=== PATIENT | male | born 1960 | race Caucasian/White ===

== ENCOUNTER 2021-09-08 11:19 | Inpatient (IN) | payer OTHER ==
[~2021-09-08] VITALS: Ht 185.4 cm; Wt 105.2 kg
--- NOTE | 2021-09-08 11:10 | NUR ---
Wound Care Wound Type/Assessment: This is a 60-year-old gentleman presenting to the wound care center today for care of left great toe diabetic ulceration. Patient reports of history possibly 1 week ago of skin break with marked worsening over the past 3 days now demonstrating swelling, redness, necrosis, fluctuance and odor. Plantar opening of wound does probe to bone. He does report chilled sensation. He is new to his primary care physician and we note blood work from yesterday with a glucose of 277, hemoglobin A1c of 7.8, white count of 12.3 and a GFR of 83. Primary care also placed the patient on Bactrim. Patient has prior history of ulceration but no amputation in the past. Quanta flow is 1.22 with good dorsalis pedis and posterior tibial pulses. Treatment Recommendations/Plan: Direct admit from wound clinic, for left Diabetic foot infection. Education provided: to pt re: possible treatment course and POC. Offloading surface/device: recommend NWB at this time Recommended Referrals/Tests: Dr. Chacon, L foot imaging, ID Discharge Recommendations for dressings: will continue to follow as needed
[2021-09-08 11:50] VITALS: BP 151/87
--- NOTE | 2021-09-08 12:09 | NUR ---
Pt arrived on unit at 1140 by wheelchair via transportation. Pt able to ambulate independently to bed. Pt denies pain. Dr. Bustillos paged for orders. Wound pictured/dressed by wound care, this RN verified with DEMETRA Lee. RHIANNON shelley ordered. Will assume care of pt.
[2021-09-08] MEDS ORDERED: ACETAMINOPHEN 325 MG TABLET. PO PRN (12:30)
[2021-09-08] MEDS ORDERED: PIP/TAZO PER PHARMACY MC PRN (12:30)
[2021-09-08] MEDS ORDERED: CRESTOR40 MG PO (12:40)
[2021-09-08] MEDS ORDERED: LISI10TA16 PO (12:40)
[2021-09-08] MEDS ORDERED: CITA40TA6 PO (12:40)
[2021-09-08] MEDS ORDERED: METF10007 PO (12:40)
[2021-09-08] MEDS ORDERED: CYAN25008 PO (12:40)
[2021-09-08] MEDS ORDERED: GLIP10TA13 PO (12:40)
[2021-09-08] MEDS ORDERED: VANCOMYCIN 2 GM in IV NORMAL SALINE 500ML BAG 500 ML IV ONE (12:45)
[2021-09-08 13:14] LABS: BASO # 0.1 x10^3/uL (0.0-0.2); BASO % 1 % (0-3); EOS # 0.1 x10^3/uL (0.0-0.7); EOS % 1 % (0-3); HEMOGLOBIN 14.8 g/dL (13.0-17.5); LYMPH # 0.9 x10^3/uL (1.0-4.8); LYMPH % 9 % (24-48); MEAN CORPUSCULAR HEMOGLOBIN 34 pg (25-35); MEAN CORPUSCULAR HGB CONC 35 g/dL (31-37); MEAN CORPUSCULAR VOLUME 96 fL (79-100); MONO % 10 % (0-9); NEUT # 7.9 x10^3/uL (1.8-7.7); NEUT % 79 % (31-73); PLATELET COUNT 380 x10^3/uL (140-400); RED BLOOD COUNT 4.37 x10^6/uL (4.30-5.70)
[2021-09-08] MEDS ORDERED: FLU VACC QUAD 21-22 (6MOS+) PF 0.5 ML SYRINGE. VAX IM ONE (13:15)
[2021-09-08] MEDS ORDERED: PIPERACILLIN/TAZOBACTAM 3.375 GM in IV NORMAL SALINE 50ML 50 ML IV ONE (13:15)
[2021-09-08 13:25] LABS: CALCIUM 9.2 mg/dL (8.5-10.1); CREATININE 1.2 mg/dL (0.7-1.3); GFR 61.8; POTASSIUM 4.3 mmol/L (3.5-5.1)
[2021-09-08] MEDS ORDERED: DEXTROSE 50% 25 GM / 50ML DISP.SYRIN. IV PRN (14:45)
[2021-09-08 15:11] VITALS: BP 155/94
[2021-09-08] MEDS: VANCOMYCIN PER PHARMACY MC PRN (15:44)
--- NOTE | 2021-09-08 15:51 | NUR ---
Pharmacy Vancomycin Dosing Note S:Consulted to monitor and dose vancomycin started 09/08/21. O:RANI CONTRERAS is a 60 year old M with Diabetic Foot Ulcer . Height: 6 feet, 1 inches Weight: 105.5 kg [facility] Body Weight: 79.90 Adjusted Body Weight: 90.14 Dosing Weight: Actual Other Antibiotics: Zosyn 3.375gm IVPB q6hrs LABS: Last BUN: 18 Last Creatinine: 1.2 Creatinine Clearance: 83 mL/min Last WBC: 10.0 Last Procalcitonin: Tmax (past 24 hours): 99.9 Microbiology: I/O: Drug Levels: Last level: on at Last dose given 09/08/21 at 1504 Vancomycin Dosing: Loading Dose: 2000 mg x1 Dosing Weight: Actual Target Trough: 10-20 A: Based on weight and est. CrCl: P: 1. Start Vancomycin 2000mg once, followed by Vancomycin 1500 mg IV q12h. 2. Follow up Trough level on 09/10/21 at 0230. 3. Pharmacy will continue to monitor, follow and adjust therapy as needed. Bossman Patrick [facility], 09/08/21 [id number]
--- NOTE | 2021-09-08 16:26 | PDOC1 ---
History and Physical Date of Admission Date of Admission DATE: 09/08/21 TIME: 16:21 History of Present Illness History of Present Illness Mr. Leon just moved here from [place] recently and was establishing care with Jakob Clayton. He has had some toe problem recently, redness, and swelling and was sent to Wound care clinic, first visit today and Dr. Diaz called me for a direct admit for left great toe infection that would be consistent with osteomyellitis, and appears to have infection to the MTP. his eval was that pulses are good and he has no reason to expect vascular compromise. Clayton has slightly elevated sugars, is on metformin and glyburide at home, and his new PCP has already discussed changing to some newer options for better control weight stable, no fever he works in the [employer] at [employer] Past Medical History Cardiovascular: HTN Heme/Onc: No pertinent hx Hepatobiliary: No pertinent hx Psych: Depression Rheumatologic: No pertinent hx Endocrine: Diabetes Past Surgical History Past Surgical History: No pertinent history Social History Smoke: No ALCOHOL: none Drugs: None Current Medications Current Medications Current Medications Vancomycin HCl (Vanco Per Pharmacy) 1 each PRN DAILY PRN MC SEE COMMENTS Last administered on 09/08/21at 15:44; Start 09/08/21 at 12:30 Piperacillin Sod/ Tazobactam Sod (Zosyn Per Pharmacy) 1 each PRN DAILY PRN MC SEE COMMENTS; Start 09/08/21 at 12:30 Acetaminophen (Tylenol) 650 mg PRN Q6HRS PRN PO MILD PAIN / TEMP > 100.3'F; Start 09/08/21 at 12:30 Vancomycin HCl 2 gm/Sodium Chloride 500 ml @ 250 mls/hr 1X ONCE IV Last administered on 09/08/21at 15:04; Start 09/08/21 at 12:45; Stop 09/08/21 at 14:49; Status DC Piperacillin Sod/ Tazobactam Sod 3.375 gm/Sodium Chloride 50 ml @ 100 mls/hr 1X ONCE IV ; Start 09/08/21 at 13:15; Stop 09/08/21 at 13:44; Status Cancel Influenza Virus Vaccine Quadrival (Flulaval Quad Syringe) 0.5 ml ONCE ONCE VAX IM ; Start 09/08/21 at 13:15; Stop 09/08/21 at 13:18; Status DC Piperacillin Sod/ Tazobactam Sod 3.375 gm/Sodium Chloride 50 ml @ 100 mls/hr Q6HRS IV ; Start 09/08/21 at 18:00 Lisinopril (Prinivil) 10 mg DAILY PO ; Start 09/09/21 at 09:00 Citalopram Hydrobromide (CeleXA) 40 mg DAILY PO ; Start 09/09/21 at 09:00 Cyanocobalamin (Vitamin B-12) 2,500 mcg DAILY PO ; Start 09/09/21 at 09:00 Glipizide (Glucotrol) 10 mg BIDBFRMEAL PO ; Start 09/08/21 at 16:30 Atorvastatin Calcium (Lipitor) 80 mg QHS PO ; Start 09/08/21 at 21:00 Insulin Glargine (Lantus Syringe) 10 unit QHS SQ ; Start 09/08/21 at 21:00 Insulin Human Lispro (HumaLOG) 8 units TIDAC SQ ; Start 09/08/21 at 16:30 Insulin Human Lispro (HumaLOG) 0-7 UNITS TIDWMEALS SQ ; Start 09/08/21 at 17:00 Dextrose (Dextrose 50%-Water Syringe) 12.5 gm PRN Q15MIN PRN IV SEE COMMENTS; Start 09/08/21 at 14:45 Docusate Sodium (Colace) 100 mg DAILY PO ; Start 09/09/21 at 09:00 Zolpidem Tartrate (Ambien) 5 mg PRN QHS PRN PO INSOMNIA; Start 09/08/21 at 14:45 Vancomycin HCl 1.5 gm/Sodium Chloride 500 ml @ 250 mls/hr Q12H IV ; Start 09/09/21 at 03:00 Vancomycin HCl (Vancomycin Trough Level) 1 each 1X ONCE MC ; Start 09/10/21 at 02:30; Stop 09/10/21 at 02:31 Active Scripts Active Reported Vitamin B12 (Cyanocobalamin (Vitamin B-12)) 2,500 Mcg Tablet 1 Tab PO DAILY 30 Days Lisinopril 10 Mg Tablet 1 Tab PO DAILY Crestor (Rosuvastatin Calcium) 40 Mg Tablet 0.5 Tab PO DAILY Citalopram Hbr (Citalopram Hydrobromide) 40 Mg Tablet 1 Tab PO DAILY Glipizide 10 Mg Tablet 1 Tab PO BID Metformin Hcl 1,000 Mg Tablet 1,000 Mg PO BIDWMEALS Allergies Allergies: Coded Allergies: Penicillins (Verified Allergy, Mild, Rash, 09/08/21) tolerates amoxicillin ROS General: No: Night Sweats, Malaise, Appetite, Other PSYCHOLOGICAL ROS: No: Anxiety, Behavioral Disorder, Concentration difficultie, Decreased libido, Depression, Disorientation, Hallucinations, Hostility, Irritablity, Memory difficulties, Mood Swings, Obsessive thoughts, Physical abuse, Sexual abuse, Sleep disturbances, Suicidal ideation, Other Eyes: No Blurry vision, No Decreased vision, No Double vision, No Dry eyes, No Excessive tearing, No Eye Pain, No Itchy Eyes, No Loss of vision, No Photophobia, No Scotomata, No Uses contacts, No Uses glasses, No Other HEENT: No: Heacaches, Visual Changes, Hearing change, Nasal congestion, Nasal discharge, Oral lesions, Sinus pain, Sore Throat, Epistaxis, Sneezing, Snoring, Tinnitus, Vertigo, Vocal changes, Other ENDOCRINE: No: Breast Changes, Galactorrhea, Hair Pattern Changes, Hot Flashes, Malaise/lethargy, Mood Swings, Palpitations, Polydipsia/polyuria, Skin Changes, Temperature Intolerance, Unexpected Weight Changes, Other Respiratory: No: Cough, Hemoptysis, Orthopnea, Pleuritic Pain, Shortness of breath, SOB with excertion, Sputum Changes, Stridor, Tachypnea, Wheezing, Other Cardiovascular: No Chest Pain, No Palpitations, No Orthopnea, No Paroxysmal Noc. Dyspnea, No Edema, No Lt Headedness, No Other Gastrointestinal: No Nausea, No Vomiting, No Abdominal Pain, No Diarrhea, No Constipation, No Melena, No Hematochezia, No Other Genitourinary: No Dysuria, No Frequency, No Incontinence, No Hematuria, No Retention, No Discharge, No Urgency, No Pain, No Flank Pain, No Other, No , No , No , No , No , No , No Musculoskeletal: No Gait Disturbance, No Joint Pain, No Joint Stiffness, No Joint Swelling, No Muscle Pain, No Muscular Weakness, No Pain In:, No Swelling In:, No Other Neurological: No Behavorial Changes, No Bowel/Bladder ControlChng, No Confusion, No Dizziness, No Gait Disturbance, No Headaches, No Impaired Coord/balance, No Memory Loss, No Numbness/Tingling, No Seizures, No Speech Problems, No Tremors, No Visual Changes, No Weakness, No Other Skin: Yes Dry Skin, Yes Rash, Yes Skin Lesion Changes (foot); No Eczema, No Hair Changes, No Lumps, No Mole Changes, No Mottling, No Nail Changes, No Pruritus, No Other, No Acne Physical Exam General: Alert, Oriented X3, Cooperative, No acute distress HEENT: Atraumatic, PERRLA Lungs: Clear to auscultation Heart: S1S2, RRR Abdomen: Soft Extremities: No cyanosis, No edema, Normal pulses, Other Skin: Other (left great toe redness, open wound) Neuro: Normal speech Psych/Mental Status: Mental status NL, Mood NL Vitals Vitals Vital Signs Date Time Temp Pulse Resp B/P (MAP) Pulse Ox O2 Delivery O2 Flow Rate FiO2 09/08/21 15:11 99.9 91 20 155/94 (114) 97 Room Air 99.9 Labs Labs Laboratory Tests Test 09/08/21 11:54 09/08/21 13:10 Glucose (Fingerstick) 233 mg/dL (70-99) White Blood Count 10.0 x10^3/uL (4.0-11.0) Red Blood Count 4.37 x10^6/uL (4.30-5.70) Hemoglobin 14.8 g/dL (13.0-17.5) Hematocrit 42.0 % (39.0-53.0) Mean Corpuscular Volume 96 fL (79-100) Mean Corpuscular Hemoglobin 34 pg (25-35) Mean Corpuscular Hemoglobin Concent 35 g/dL (31-37) Red Cell Distribution Width 12.0 % (11.5-14.5) Platelet Count 380 x10^3/uL (140-400) Neutrophils (%) (Auto) 79 % (31-73) Lymphocytes (%) (Auto) 9 % (24-48) Monocytes (%) (Auto) 10 % (0-9) Eosinophils (%) (Auto) 1 % (0-3) Basophils (%) (Auto) 1 % (0-3) Neutrophils # (Auto) 7.9 x10^3/uL (1.8-7.7) Lymphocytes # (Auto) 0.9 x10^3/uL (1.0-4.8) Monocytes # (Auto) 1.0 x10^3/uL (0.0-1.1) Eosinophils # (Auto) 0.1 x10^3/uL (0.0-0.7) Basophils # (Auto) 0.1 x10^3/uL (0.0-0.2) Sodium Level 132 mmol/L (136-145) Potassium Level 4.3 mmol/L (3.5-5.1) Chloride Level 95 mmol/L (98-107) Carbon Dioxide Level 27 mmol/L (21-32) Anion Gap 10 (6-14) Blood Urea Nitrogen 18 mg/dL (8-26) Creatinine 1.2 mg/dL (0.7-1.3) Estimated GFR (Cockcroft-Gault) 61.8 Glucose Level 257 mg/dL (70-99) Calcium Level 9.2 mg/dL (8.5-10.1) Laboratory Tests Test 09/08/21 11:54 09/08/21 13:10 Glucose (Fingerstick) 233 mg/dL (70-99) White Blood Count 10.0 x10^3/uL (4.0-11.0) Red Blood Count 4.37 x10^6/uL (4.30-5.70) Hemoglobin 14.8 g/dL (13.0-17.5) Hematocrit 42.0 % (39.0-53.0) Mean Corpuscular Volume 96 fL (79-100) Mean Corpuscular Hemoglobin 34 pg (25-35) Mean Corpuscular Hemoglobin Concent 35 g/dL (31-37) Red Cell Distribution Width 12.0 % (11.5-14.5) Platelet Count 380 x10^3/uL (140-400) Neutrophils (%) (Auto) 79 % (31-73) Lymphocytes (%) (Auto) 9 % (24-48) Monocytes (%) (Auto) 10 % (0-9) Eosinophils (%) (Auto) 1 % (0-3) Basophils (%) (Auto) 1 % (0-3) Neutrophils # (Auto) 7.9 x10^3/uL (1.8-7.7) Lymphocytes # (Auto) 0.9 x10^3/uL (1.0-4.8) Monocytes # (Auto) 1.0 x10^3/uL (0.0-1.1) Eosinophils # (Auto) 0.1 x10^3/uL (0.0-0.7) Basophils # (Auto) 0.1 x10^3/uL (0.0-0.2) Sodium Level 132 mmol/L (136-145) Potassium Level 4.3 mmol/L (3.5-5.1) Chloride Level 95 mmol/L (98-107) Carbon Dioxide Level 27 mmol/L (21-32) Anion Gap 10 (6-14) Blood Urea Nitrogen 18 mg/dL (8-26) Creatinine 1.2 mg/dL (0.7-1.3) Estimated GFR (Cockcroft-Gault) 61.8 Glucose Level 257 mg/dL (70-99) Calcium Level 9.2 mg/dL (8.5-10.1) VTE Prophylaxis Ordered VTE Prophylaxis Devices: No VTE Pharmacological Prophylaxi: No Assessment/Plan Assessment/Plan left great toe osteomyelitis, in DM2, add insulin for glucose control, check A1c consutl podiatry for I+D or amputation VAnc.zosyn obese, BMI 31 htn depression, celexa Justifications for Admission Other Justification MAKSIM CHESTER MD Sep 08, 2021 16:26
[2021-09-08] MEDS: glipiZIDE 5 MG TABLET PO SCH (16:31)
[2021-09-08] MEDS: INSULIN LISPRO 300 UNITS/3 ML VIAL. SQ SCH ×2 (16:39→16:40)
[2021-09-08] MEDS: PIPERACILLIN/TAZOBACTAM 3.375 GM in IV NORMAL SALINE 50ML 50 ML IV SCH (17:33)
[2021-09-08 19:00] VITALS: BP 124/77
--- NOTE | 2021-09-08 20:09 | PDOC2 ---
CONSULT Date of Consult Date of Consult DATE: 09/08/21 TIME: 20:01 History of Present Illness Reason for Visit: Patient was consulted for an acute left hallux swelling, redness in the setting of type 2 diabetes, peripheral neuropathy and PAD. At bedside, patient denies any inciting events to the left foot but has noticed swelling and redness about a week ago. Earlier this week, it has been draining blood and clear liquid. Also, he had an episode of fever and chills on Monday. Patient relates upwards to 8 out of 10 sharp throbbing pain to the left hallux, worse with pressure and activity. Subsequent PCP evaluation and treatment consisted of oral antibiotics. Subsequent wound care evaluation was concerning for cellulitis and deep tissue infection which prompted hospital admission for IV antibiotics and possible surgical intervention. Upon admission, patient was found without leukocytosis however with low-grade fever and tachycardia. Patient was then placed on IV Vanco and Zosyn. Past Medical History Cardiovascular: HTN Heme/Onc: No pertinent hx Hepatobiliary: No pertinent hx Psych: Depression Rheumatologic: No pertinent hx Endocrine: Diabetes Past Surgical History Past Surgical History: No pertinent history Social History No ALCOHOL: none Drugs: None Current Medications Current Medications Current Medications Vancomycin HCl (Vanco Per Pharmacy) 1 each PRN DAILY PRN MC SEE COMMENTS Last administered on 09/08/21at 15:44; Start 09/08/21 at 12:30 Piperacillin Sod/ Tazobactam Sod (Zosyn Per Pharmacy) 1 each PRN DAILY PRN MC SEE COMMENTS; Start 09/08/21 at 12:30 Acetaminophen (Tylenol) 650 mg PRN Q6HRS PRN PO MILD PAIN / TEMP > 100.3'F; Start 09/08/21 at 12:30 Vancomycin HCl 2 gm/Sodium Chloride 500 ml @ 250 mls/hr 1X ONCE IV Last administered on 09/08/21at 15:04; Start 09/08/21 at 12:45; Stop 09/08/21 at 14:49; Status DC Piperacillin Sod/ Tazobactam Sod 3.375 gm/Sodium Chloride 50 ml @ 100 mls/hr 1X ONCE IV ; Start 09/08/21 at 13:15; Stop 09/08/21 at 13:44; Status Cancel Influenza Virus Vaccine Quadrival (Flulaval Quad Syringe) 0.5 ml ONCE ONCE VAX IM Last administered on 09/08/21at 16:30; Start 09/08/21 at 13:15; Stop 09/08/21 at 13:18; Status DC Piperacillin Sod/ Tazobactam Sod 3.375 gm/Sodium Chloride 50 ml @ 100 mls/hr Q6HRS IV Last administered on 09/08/21at 17:33; Start 09/08/21 at 18:00 Lisinopril (Prinivil) 10 mg DAILY PO ; Start 09/09/21 at 09:00 Citalopram Hydrobromide (CeleXA) 40 mg DAILY PO ; Start 09/09/21 at 09:00 Cyanocobalamin (Vitamin B-12) 2,500 mcg DAILY PO ; Start 09/09/21 at 09:00 Glipizide (Glucotrol) 10 mg BIDBFRMEAL PO Last administered on 09/08/21at 16:31; Start 09/08/21 at 16:30 Atorvastatin Calcium (Lipitor) 80 mg QHS PO ; Start 09/08/21 at 21:00 Insulin Glargine (Lantus Syringe) 10 unit QHS SQ ; Start 09/08/21 at 21:00 Insulin Human Lispro (HumaLOG) 8 units TIDAC SQ Last administered on 09/08/21at 16:39; Start 09/08/21 at 16:30 Insulin Human Lispro (HumaLOG) 0-7 UNITS TIDWMEALS SQ Last administered on 09/08/21at 16:40; Start 09/08/21 at 17:00 Dextrose (Dextrose 50%-Water Syringe) 12.5 gm PRN Q15MIN PRN IV SEE COMMENTS; Start 09/08/21 at 14:45 Docusate Sodium (Colace) 100 mg DAILY PO ; Start 09/09/21 at 09:00 Zolpidem Tartrate (Ambien) 5 mg PRN QHS PRN PO INSOMNIA; Start 09/08/21 at 14:45 Vancomycin HCl 1.5 gm/Sodium Chloride 500 ml @ 250 mls/hr Q12H IV ; Start 09/09/21 at 03:00 Vancomycin HCl (Vancomycin Trough Level) 1 each 1X ONCE MC ; Start 09/10/21 at 02:30; Stop 09/10/21 at 02:31 Active Scripts Active Reported Vitamin B12 (Cyanocobalamin (Vitamin B-12)) 2,500 Mcg Tablet 1 Tab PO DAILY 30 Days Lisinopril 10 Mg Tablet 1 Tab PO DAILY Crestor (Rosuvastatin Calcium) 40 Mg Tablet 0.5 Tab PO DAILY Citalopram Hbr (Citalopram Hydrobromide) 40 Mg Tablet 1 Tab PO DAILY Glipizide 10 Mg Tablet 1 Tab PO BID Metformin Hcl 1,000 Mg Tablet 1,000 Mg PO BIDWMEALS Allergies Allergies: Coded Allergies: Penicillins (Verified Allergy, Mild, Rash, 09/08/21) tolerates amoxicillin ROS Review of System CONSTITUTIONAL: No fever. No chills. No dizziness. No weakness. CARDIOVASCULAR: No chest pain. No palpitations. No lower extremity edema. RESPIRATORY: No shortness of breath, cough, pain with respiration. No hemoptysis. No dyspnea. GASTROINTESTINAL: Normal appetite. No nausea, vomiting, diarrhea. GENITOURINARY: No frequency, urgency, nocturia. No hematuria or dysuria. MUSCULOSKELETAL: No arthralgias or myalgias. INTEGUMENTARY: Refer to HPI NEUROLOGIC: No numbness or tingling of the extremities. No weakness. PSYCHIATRIC: No confusion. ENDOCRINE: No fatigue. No weakness. HEMATOLOGICAL: No bleeding. No petechiae. No bruising. ALLERGIES: No asthma. No urticaria Physical Exam Physical Exam General: Pleasant without apparent distress, AOx3 Left lower extremity focused Dermatology: -Diffused erythematous, edema circumferentially to the left hallux to the level of the MTPJ. There are full-thickness ulcers to the dorsal and plantar aspect of the proximal hallux base, probe deep. Both wounds drain serosanguineous. Questionable fluctuance underneath. There is no proximal streaking passing the MTPJ Vascular: -DP/PT palpable -Foot is warm to touch with CFT less than 3 seconds x 5 -Erythematous blanchable without necrotic, violaceous skin changes Neurology: -Light touch sensation diminished to the level of digits 1 through 5 MSK: -[+] TTP at the distal hallux to the level of MTPJ -Passive MTPJ range of motion was smooth without crepitus or pain -Able to move digits 1 through 5 -Muscle strength 5 out of 5 across ankle joint -Calf is soft and nontender -No TTP to the plantar arch compartment Vitals VITALS Vital Signs Date Time Temp Pulse Resp B/P (MAP) Pulse Ox O2 Delivery O2 Flow Rate FiO2 09/08/21 19:00 97.8 92 18 124/77 (93) 97 Room Air 97.8 Labs Labs Laboratory Tests Test 09/08/21 11:54 09/08/21 13:10 09/08/21 16:32 09/08/21 18:54 Glucose (Fingerstick) 233 mg/dL (70-99) 164 mg/dL (70-99) 133 mg/dL (70-99) White Blood Count 10.0 x10^3/uL (4.0-11.0) Red Blood Count 4.37 x10^6/uL (4.30-5.70) Hemoglobin 14.8 g/dL (13.0-17.5) Hematocrit 42.0 % (39.0-53.0) Mean Corpuscular Volume 96 fL (79-100) Mean Corpuscular Hemoglobin 34 pg (25-35) Mean Corpuscular Hemoglobin Concent 35 g/dL (31-37) Red Cell Distribution Width 12.0 % (11.5-14.5) Platelet Count 380 x10^3/uL (140-400) Neutrophils (%) (Auto) 79 % (31-73) Lymphocytes (%) (Auto) 9 % (24-48) Monocytes (%) (Auto) 10 % (0-9) Eosinophils (%) (Auto) 1 % (0-3) Basophils (%) (Auto) 1 % (0-3) Neutrophils # (Auto) 7.9 x10^3/uL (1.8-7.7) Lymphocytes # (Auto) 0.9 x10^3/uL (1.0-4.8) Monocytes # (Auto) 1.0 x10^3/uL (0.0-1.1) Eosinophils # (Auto) 0.1 x10^3/uL (0.0-0.7) Basophils # (Auto) 0.1 x10^3/uL (0.0-0.2) Sodium Level 132 mmol/L (136-145) Potassium Level 4.3 mmol/L (3.5-5.1) Chloride Level 95 mmol/L (98-107) Carbon Dioxide Level 27 mmol/L (21-32) Anion Gap 10 (6-14) Blood Urea Nitrogen 18 mg/dL (8-26) Creatinine 1.2 mg/dL (0.7-1.3) Estimated GFR (Cockcroft-Gault) 61.8 Glucose Level 257 mg/dL (70-99) Calcium Level 9.2 mg/dL (8.5-10.1) Laboratory Tests Test 09/08/21 11:54 09/08/21 13:10 09/08/21 16:32 09/08/21 18:54 Glucose (Fingerstick) 233 mg/dL (70-99) 164 mg/dL (70-99) 133 mg/dL (70-99) White Blood Count 10.0 x10^3/uL (4.0-11.0) Red Blood Count 4.37 x10^6/uL (4.30-5.70) Hemoglobin 14.8 g/dL (13.0-17.5) Hematocrit 42.0 % (39.0-53.0) Mean Corpuscular Volume 96 fL (79-100) Mean Corpuscular Hemoglobin 34 pg (25-35) Mean Corpuscular Hemoglobin Concent 35 g/dL (31-37) Red Cell Distribution Width 12.0 % (11.5-14.5) Platelet Count 380 x10^3/uL (140-400) Neutrophils (%) (Auto) 79 % (31-73) Lymphocytes (%) (Auto) 9 % (24-48) Monocytes (%) (Auto) 10 % (0-9) Eosinophils (%) (Auto) 1 % (0-3) Basophils (%) (Auto) 1 % (0-3) Neutrophils # (Auto) 7.9 x10^3/uL (1.8-7.7) Lymphocytes # (Auto) 0.9 x10^3/uL (1.0-4.8) Monocytes # (Auto) 1.0 x10^3/uL (0.0-1.1) Eosinophils # (Auto) 0.1 x10^3/uL (0.0-0.7) Basophils # (Auto) 0.1 x10^3/uL (0.0-0.2) Sodium Level 132 mmol/L (136-145) Potassium Level 4.3 mmol/L (3.5-5.1) Chloride Level 95 mmol/L (98-107) Carbon Dioxide Level 27 mmol/L (21-32) Anion Gap 10 (6-14) Blood Urea Nitrogen 18 mg/dL (8-26) Creatinine 1.2 mg/dL (0.7-1.3) Estimated GFR (Cockcroft-Gault) 61.8 Glucose Level 257 mg/dL (70-99) Calcium Level 9.2 mg/dL (8.5-10.1) Assessment/Plan Assessment/Plan Left hallux cellulitis, possible deep tissue abscess, osteomyelitis in the setting of type 2 diabetes, peripheral neuropathy, PAD -Explained clinical findings and to the indication for surgical source control with possible hallux amputation. Given the amount of soft tissue involvement and damage, we may have to remove the distal first metatarsal head for soft tissue closure. This will be a staged procedure with I&D, hallux amputation first followed by delayed wound closure with possible additional first metatarsal head amputation. Patient verbalized understanding. -IV antibiotics: Vanco and Zosyn -Consider ID consult -Minimal heel touchdown weightbearing in a surgical shoe -PT eval and treat -Pending blood culture -Pending x-ray of the foot -The left hallux is dressed with gauze, Betadine paint and tape, keep it clean and dry for now until surgery tomorrow -N.p.o. after midnight in preparation for surgical intervention on 09/09 left hallux I&D and amputation with possible wound VAC application and posterior splint application Informed Consent Discussion: I have discussed the purpose, risks, benefits, and alternatives to the procedure and plan of care including potential side effects and complications, both of wh ich may be severe and require additional surgery and/or procedures to treat this with the patient/guardian(s). We discussed the risks and benefits of alternative treatment options and the likelihood of achieving the desired outcome with surgery. Procedure specific discussion is documented below. The risks, benefits and alternatives of the proposed surgery were discussed with the patient, including the option of further non-operative treatment. The possibility of perioperative complications leading to disability and were explained. Patient understands the risks of surgery include but are not limited to failure of the procedure, delayed or non-healing wound, bleeding, infection, venous thrombus/embolus, nerve, vessel, tendon and bone damage, the compli cations of anesthesia, reaction to sutures or other implanted material, stiffness, chronic pain/swelling, malunion/nonunion, the need for other operations and future revision surgery. No guarantees were given or implied. The patient's questions were answered in depth and patient is willing to proceed. ASHLEY LEDEZMA DPM Sep 08, 2021 20:09
[2021-09-08] MEDS: ATORVASTATIN CALCIUM 40 MG TABLET. PO SCH (21:58)
[2021-09-08] MEDS: INSULIN GLARGINE SYRINGE. SQ SCH (22:06)
[2021-09-08 23:00] VITALS: BP 128/72
[2021-09-09] VITALS (9 sets, daily range): BP systolic 124–157; BP diastolic 70–94
[2021-09-09] MEDS: PIPERACILLIN/TAZOBACTAM 3.375 GM in IV NORMAL SALINE 50ML 50 ML IV SCH ×5 (00:27→23:59)
[2021-09-09 02:14] LABS: HEMOGLOBIN A1C 8.7 % (4.8-5.6)
[2021-09-09] MEDS: VANCOMYCIN 1.5 GM in IV NORMAL SALINE 500ML BAG 500 ML IV SCH ×2 (03:19→14:30)
[2021-09-09] MEDS: INSULIN LISPRO 300 UNITS/3 ML VIAL. SQ SCH ×6 (07:30→17:00)
[2021-09-09] MEDS: glipiZIDE 5 MG TABLET PO SCH ×2 (07:30→16:30)
[2021-09-09] MEDS: CITALOPRAM 20 MG TABLET. PO SCH (08:56)
[2021-09-09] MEDS: DOCUSATE SODIUM 100 MG CAPSULE. PO SCH (08:56)
[2021-09-09] MEDS: CYANOCOBALAMIN (VITAMIN B-12) 1,000 MCG TABLET. PO SCH (08:56)
[2021-09-09] MEDS: LISINOPRIL 10 MG TABLET PO SCH (08:56)
--- NOTE | 2021-09-09 10:20 | NUR ---
SW following. Discussed with RN, pt from home, room air, NPO. Pt having great toe amputation. RN advised no SW needs at this time. SW will continue to follow.
--- NOTE | 2021-09-09 11:44 | PDOC ---
[employer] PROGRESS NOTE Date of Service DOS: DATE: 09/09/21 TIME: 11:41 Chief Complaint Chief Complaint Severe right great toe diabetic infection Diabetes Severe neuropathy Depression Hypertension Hyperlipidemia Insomnia History of Present Illness History of Present Illness 09/09/2021 Patient seen and examined He is scheduled to go to surgery later today (the left greater toe has severe swelling and obvious diabetic foot infection) Discussed with RN Discussed with case management Chart reviewed Vitals/I&O Vitals/I&O: Vital Signs Date Time Temp Pulse Resp B/P (MAP) Pulse Ox O2 Delivery O2 Flow Rate FiO2 09/09/21 08:56 89 124/86 09/09/21 08:00 Room Air 09/09/21 07:00 97.9 18 98 97.9 I & O 09/08/21 09/08/21 09/09/21 15:00 23:00 07:00 Intake Total 240 ml 670 ml 600 ml Output Total 950 ml Balance 240 ml 670 ml -350 ml Physical Exam General: Alert, Oriented X3, Cooperative, No acute distress Heart: Regular rate Lungs: Clear Abdomen: Soft Extremities: Other (The left greater toe has severe infection please see the pictures) Skin: Other (left great toe redness, open wound) Labs Labs: Laboratory Tests Test 09/08/21 11:54 09/08/21 13:10 09/08/21 16:32 09/08/21 18:54 Glucose (Fingerstick) 233 mg/dL (70-99) 164 mg/dL (70-99) 133 mg/dL (70-99) White Blood Count 10.0 x10^3/uL (4.0-11.0) Red Blood Count 4.37 x10^6/uL (4.30-5.70) Hemoglobin 14.8 g/dL (13.0-17.5) Hematocrit 42.0 % (39.0-53.0) Mean Corpuscular Volume 96 fL (79-100) Mean Corpuscular Hemoglobin 34 pg (25-35) Mean Corpuscular Hemoglobin Concent 35 g/dL (31-37) Red Cell Distribution Width 12.0 % (11.5-14.5) Platelet Count 380 x10^3/uL (140-400) Neutrophils (%) (Auto) 79 % (31-73) Lymphocytes (%) (Auto) 9 % (24-48) Monocytes (%) (Auto) 10 % (0-9) Eosinophils (%) (Auto) 1 % (0-3) Basophils (%) (Auto) 1 % (0-3) Neutrophils # (Auto) 7.9 x10^3/uL (1.8-7.7) Lymphocytes # (Auto) 0.9 x10^3/uL (1.0-4.8) Monocytes # (Auto) 1.0 x10^3/uL (0.0-1.1) Eosinophils # (Auto) 0.1 x10^3/uL (0.0-0.7) Basophils # (Auto) 0.1 x10^3/uL (0.0-0.2) Sodium Level 132 mmol/L (136-145) Potassium Level 4.3 mmol/L (3.5-5.1) Chloride Level 95 mmol/L (98-107) Carbon Dioxide Level 27 mmol/L (21-32) Anion Gap 10 (6-14) Blood Urea Nitrogen 18 mg/dL (8-26) Creatinine 1.2 mg/dL (0.7-1.3) Estimated GFR (Cockcroft-Gault) 61.8 Glucose Level 257 mg/dL (70-99) Hemoglobin A1c 8.7 % (4.8-5.6) Calcium Level 9.2 mg/dL (8.5-10.1) Test 09/09/21 07:29 09/09/21 11:18 Glucose (Fingerstick) 224 mg/dL (70-99) 181 mg/dL (70-99) Assessment and Plan Assessmemt and Plan Severe right great toe diabetic infection Diabetes Severe neuropathy Depression Hypertension Hyperlipidemia Insomnia Plan He is going to surgery today for probable toe amputation For now continue antibiotics Wound intermediate meds DVT prophylaxis Trend labs Full code Appreciate subspecialist input Comment Review of Relevant I have reviewed the following items edilberto (where applicable) has been applied. Medications: Current Medications Medications (Trade) Dose Ordered Sig/Jarret Route PRN Reason Start Time Stop Time Status Last Admin Dose Admin Vancomycin HCl (Vanco Per Pharmacy) 1 each PRN DAILY PRN MC SEE COMMENTS 09/08/21 12:30 09/08/21 15:44 Vancomycin HCl 2 gm/Sodium Chloride 500 ml @ 250 mls/hr 1X ONCE IV 09/08/21 12:45 09/08/21 14:49 DC 09/08/21 15:04 Influenza Virus Vaccine Quadrival (Flulaval Quad Syringe) 0.5 ml ONCE ONCE VAX IM 09/08/21 13:15 09/08/21 13:18 DC 09/08/21 16:30 Piperacillin Sod/ Tazobactam Sod 3.375 gm/Sodium Chloride 50 ml @ 100 mls/hr Q6HRS IV 09/08/21 18:00 09/09/21 05:49 Glipizide (Glucotrol) 10 mg BIDBFRMEAL PO 09/08/21 16:30 09/08/21 16:31 Atorvastatin Calcium (Lipitor) 80 mg QHS PO 09/08/21 21:00 09/08/21 21:58 Insulin Glargine (Lantus Syringe) 10 unit QHS SQ 09/08/21 21:00 09/08/21 22:06 Insulin Human Lispro (HumaLOG) 8 units TIDAC SQ 09/08/21 16:30 09/08/21 16:39 Insulin Human Lispro (HumaLOG) 0-7 UNITS TIDWMEALS SQ 09/08/21 17:00 09/09/21 09:26 Vancomycin HCl 1.5 gm/Sodium Chloride 500 ml @ 250 mls/hr Q12H IV 09/09/21 03:00 09/09/21 03:19 Justifications for Admission Other Justification ALVARO PLATA III DO Sep 09, 2021 11:44
--- NOTE | 2021-09-09 12:16 | RAD ---
EXAM: 3 views of the left foot DATE: 09/08/2021 8:37 PM INDICATION: Reason: CONCERN FOR OSTEO, L HALLUX / Spl. Instructions: / History: COMPARISON: No Prior FINDINGS/ IMPRESSION: 1. Marked soft tissue swelling about the left great toe. No definite erosive/destructive change or p eriostitis to suggest osteomyelitis. 2. Chronic deformity fifth toe proximal phalanx likely old/healed fracture. 3. Small apparent erosion in the juxta-articular region right great toe, nonspecific, although chron ic sequelae of gout could have this appearance. 4. Hallux MTP joint DJD. Electronically signed by: Martell Lora MD (09/09/2021 12:13 PM) [id number]
[2021-09-09] MEDS: VANCOMYCIN PER PHARMACY MC PRN (12:48)
[2021-09-09] MEDS ORDERED: VANCOMYCIN 1 GM VIAL. ONE (14:00)
[2021-09-09] MEDS ORDERED: BUPIVACAINE MPF 0.25% 30 ML VIAL. ONE (14:00)
[2021-09-09] MEDS ORDERED: PROPOFOL 10 MG/ML (20ML) VIAL. IV ONE (14:18)
[2021-09-09] MEDS ORDERED: LIDOCAINE 2% PF 5 ML VIAL. ONE (14:18)
[2021-09-09] MEDS ORDERED: ONDANSETRON PF 4 MG/2 ML VIAL. ONE (14:18)
[2021-09-09] MEDS ORDERED: DEXAMETHASONE SOD PHOS 4 MG/ML VIAL ONE (14:18)
[2021-09-09] MEDS: INSULIN LISPRO 100 UNIT/ML 3ML VIAL for OP,RR ONLY. SQ PRN ×2 (15:54→17:09)
[2021-09-09] MEDS ORDERED: fentaNYL PF VIAL 100 MCG/2 ML VIAL ONE (16:09)
[2021-09-09] MEDS ORDERED: SEVOFLURANE 31 TO 60 MINUTES. IH ONE (16:27)
--- NOTE | 2021-09-09 16:57 | PDOC4 ---
OPERATIVE NOTE Date: Date: Sep 09, 2021 Pre-Op Diagnosis: Left hallux cellulitis, deep tissue abscess without any significance of radiographic osteomyelitis in the setting of type 2 diabetes, peripheral neuropathy Post-Op Diagnosis: Same as above Procedure Performed: Left hallux incision and drainage, hallux disarticulation at the MTPJ Surgeon: Ashley Ledezma DPM Anesthesia Type: General Blood Loss: 20 cc Specimans Obtained: Left hallux for permanent, osteomyelitis rule out Findings: Deep abscess pocket to the dorsal and plantar aspect of the distal hallux without violating the MTPJ capsule, tracking along the flexor or extensor tendons. The underlying hallux and the first MTPJ were firm to probe without osteolytic changes. Upon disarticulation at the first MTPJ, there was no proximal tracking or purulence noted. However the dorsal skin flap showed minimal micro thrombocytosis without purulence. To preserve and observe the survivorship of the dorsal flap, the residual erythema was outlined with a marking pen. On the plantar flap, there was no purulence or erythema noted. Complications: None Operative Note: Patient was brought into the operating room and placed on the operating table in a supine position. A timeout was performed to confirm patient's identity, location of surgery and procedure. After induction of general anesthesia, a pneumatic left high ankle tourniquet was placed with pressure set 250 mmHg. The left lower extremity was then scrubbed, prepped and draped in the usual sterile manner. The left lower extremity was elevated for gravity exsanguination and the tourniquet was inflated to 250 mmHg. Then the attention was directed to the left hallux. A modified fishmouth incision was made just distal to the MTPJ. Upon incision to the medial dorsal aspect of the hallux, there was purulence draining from the deep tissue. However upon deep dissection, the purulence and necrotic change were limited to distal to the MTPJ of the capsule. The hallux was disarticulated at the MTPJ level. The hallux was sent for pathology and osteomyelitis rule out. [place] deep tissue culture and sensitivity were collected. Further wound inspection was negative for purulence tracking proximally along the extensor or dorsal tendon. The first intermetatarsal space was preserved. The cartilage at the first metatarsal head was intact without any necrotic changes. Then 3 L of normal saline infused with Betadine was used to irrigate the surgical site copiously. Afterwards, wound site inspection was negative for residual purulence or necrotic changes except for mild microthrombosis at the dorsal skin flap with minimal erythema extending approximately 2 cm proximal to the surgical site. But otherwise, there was no necrotic skin flap changes. Decision was made to observe and preserve the dorsal flap for further survivorship. Post washout deep culture swab was sent for culture, sensitivity for anaerobes and aerobes. The tourniquet was deflated and adequate dorsal and plantar flap perfusion were noted without any pulsating bleeding. 10 cc of quarter percent Marcaine plain was infiltrated to the first ray as a Miramontes block for postoperative anesthesia augmentation. The surgical site was packed with Betadine wet-to-dry gauze secured with ABD, Coban and Yury compression. Lesser digital perfusion 2 through 5 were noted. Patient tolerated procedure anesthesia well with vital signs stable and neurovascular status intact. Patient was then transferred to PACU for continued recovery. Pending left foot 3 view x-ray. ASHLEY LEDEZMA DPM Sep 09, 2021 16:57
[2021-09-09] MEDS ORDERED: PROCHLORPERAZINE 10 MG/2 ML VIAL. IVP PRN (17:00)
[2021-09-09] MEDS ORDERED: MORPHINE SULFATE 2 MG/ML INJ. IVP PRN (17:00)
[2021-09-09] MEDS ORDERED: IV RINGERS,LACTATED 1000ML 1,000 ML IV SCH (17:00)
[2021-09-09] MEDS ORDERED: HYDROmorphone 2 MG/ML VIAL IVP PRN (17:00)
[2021-09-09] MEDS ORDERED: fentaNYL PF VIAL 100 MCG/2 ML VIAL IVP PRN ×2 (17:00)
[2021-09-09] MEDS: ACETAMINOPHEN 325 MG TABLET. PO SCH (18:00)
--- NOTE | 2021-09-09 20:10 | RAD ---
Study: XR FOOT_LEFT 3 VIEWS Indication: Postop. Comparison: 09/08/2021 Findings: Status post great toe phalangeal dictation. Within normal limits appearance of the surrounding soft t issues given proximity to surgery. Intact cortex of the first metacarpal head. No unexpected retained radiopaque foreign body. Impression: Within normal limits postoperative radiographs status post great toe phalangeal amputations. Electronically signed by: UNA HASSAN MD (09/09/2021 8:08 PM) [facility]
[2021-09-09] MEDS: GABAPENTIN 100 MG CAPSULE. PO SCH (20:17)
[2021-09-09] MEDS: ATORVASTATIN CALCIUM 40 MG TABLET. PO SCH (20:17)
[2021-09-09] MEDS: INSULIN GLARGINE SYRINGE. SQ SCH (20:18)
[2021-09-10 03:00] VITALS: BP 129/78
[2021-09-10 03:13] LABS: CALCIUM 8.7 mg/dL (8.5-10.1); CREATININE 1.2 mg/dL (0.7-1.3); GFR 61.8; POTASSIUM 4.2 mmol/L (3.5-5.1)
[2021-09-10 03:19] LABS: VANC TR 12.5 mcg/mL (10.0-20.0)
[2021-09-10] MEDS: VANCOMYCIN 1.5 GM in IV NORMAL SALINE 500ML BAG 500 ML IV SCH ×2 (03:35→14:14)
[2021-09-10] MEDS: VANCOMYCIN PER PHARMACY MC PRN (03:44)
--- NOTE | 2021-09-10 03:45 | NUR ---
Pharmacy Vancomycin Dosing Note S:Consulted to monitor and dose vancomycin started 09/08/21. O:RANI CONTRERAS is a 60 year old M with Diabetic Foot Ulcer . Height: 6 feet, 1 inches Weight: 105.5 kg [place] Body Weight: 79.90 Adjusted Body Weight: 90.14 Dosing Weight: Actual Other Antibiotics: Zosyn 3.375gm IVPB q6hrs LABS: Last BUN: 17 Last Creatinine: 1.2 Creatinine Clearance: 83 mL/min Last WBC: 10.0 Last Procalcitonin: Tmax (past 24 hours): 98.9 Microbiology: 09/10 CX FROM TOE AMP PENDING I/O: 1510/950 Drug Levels: Last Trough level: 12.5 on 09/10/21 at 0235 Last dose given 09/09/21 at 1500 Vancomycin Dosing: Loading Dose: 2000 mg x1 Dosing Weight: Actual Target Trough: 10-20 A: Based on: THERAPEUTIC TROUGH, P: 1. CONTINUE Vancomycin 1500 mg IV q12h 2. Follow up Trough level NEEDED 3. Pharmacy will continue to monitor, follow and adjust therapy as needed. RAJNI XIE [facility], 09/10/21 [id number]
[2021-09-10 04:30] LABS: BASO % 1 % (0-3); EOS # 0.2 x10^3/uL (0.0-0.7); EOS % 3 % (0-3); HEMATOCRIT 41.7 % (39.0-53.0); HEMOGLOBIN 14.4 g/dL (13.0-17.5); LYMPH # 0.9 x10^3/uL (1.0-4.8); LYMPH % 12 % (24-48); MEAN CORPUSCULAR HEMOGLOBIN 33 pg (25-35); MEAN CORPUSCULAR HGB CONC 35 g/dL (31-37); MEAN CORPUSCULAR VOLUME 97 fL (79-100); MONO % 13 % (0-9); NEUT # 5.7 x10^3/uL (1.8-7.7); NEUT % 72 % (31-73); PLATELET COUNT 440 x10^3/uL (140-400); RED BLOOD COUNT 4.31 x10^6/uL (4.30-5.70); RED CELL DISTRIBUTION WIDTH 12.2 % (11.5-14.5); WHITE BLOOD COUNT 7.9 x10^3/uL (4.0-11.0)
[2021-09-10] MEDS: PIPERACILLIN/TAZOBACTAM 3.375 GM in IV NORMAL SALINE 50ML 50 ML IV SCH ×4 (05:33→23:45)
[2021-09-10] MEDS: ACETAMINOPHEN 325 MG TABLET. PO SCH ×5 (05:33→23:46)
[2021-09-10 07:00] VITALS: BP 147/85
[2021-09-10] MEDS: CITALOPRAM 20 MG TABLET. PO SCH (08:54)
[2021-09-10] MEDS: LISINOPRIL 10 MG TABLET PO SCH (08:54)
[2021-09-10] MEDS: DOCUSATE SODIUM 100 MG CAPSULE. PO SCH (08:54)
[2021-09-10] MEDS: GABAPENTIN 100 MG CAPSULE. PO SCH ×3 (08:54→21:40)
[2021-09-10] MEDS: glipiZIDE 5 MG TABLET PO SCH ×2 (08:54→17:18)
[2021-09-10] MEDS: CYANOCOBALAMIN (VITAMIN B-12) 1,000 MCG TABLET. PO SCH (08:55)
[2021-09-10] MEDS: INSULIN LISPRO 300 UNITS/3 ML VIAL. SQ SCH ×6 (08:56→17:00)
--- NOTE | 2021-09-10 10:51 | NUR ---
SW following. Discussed with RN, pt from home, room air, ada diet. Pt had surgery 09/09, wound vac to be placed today - pt is NWB. PT/OT ordered. SW will continue to follow.
[2021-09-10 11:00] VITALS: BP 128/70
[2021-09-10 15:00] VITALS: BP 133/84
--- NOTE | 2021-09-10 16:08 | PDOC ---
PROGRESS NOTES Date of Service: DATE: 09/10/21 TIME: 16:05 Chief Complaint Chief Complaint Severe right great toe diabetic infection Diabetes Severe neuropathy Depression Hypertension Hyperlipidemia Insomnia Plan: Continue IV antibiotics Follow recommendations from physical therapy Wound VAC placement pending Reassess in the a.m. Further recommendations based on the clinical course History of Present Illness History of Present Illness 09/09/2021 Patient seen and examined He is scheduled to go to surgery later today (the left greater toe has severe swelling and obvious diabetic foot infection) Discussed with RN Discussed with case management Chart reviewed 09/10/2021 No acute events reported overnight, case discussed with nursing staff patient in no acute distress complaining of diarrhea. Reassurance has been provided. Wound VAC hopefully will be placed either today or tomorrow discussed results of hemoglobin A1c Vitals Vitals Vital Signs Date Time Temp Pulse Resp B/P (MAP) Pulse Ox O2 Delivery O2 Flow Rate FiO2 09/10/21 15:00 97.9 86 18 133/84 (100) 99 97.9 09/10/21 08:00 Room Air 09/09/21 16:55 6 Physical Exam General: Alert, Oriented X3, Cooperative, No acute distress Heart: Regular rate Lungs: Clear Abdomen: Soft Extremities: Other (The left greater toe has severe infection please see the pictures) Skin: Other (left great toe redness, open wound) Labs LABS Laboratory Tests Test 09/09/21 16:59 09/09/21 17:55 09/09/21 20:25 09/10/21 02:35 Glucose (Fingerstick) 161 mg/dL (70-99) 143 mg/dL (70-99) 211 mg/dL (70-99) White Blood Count 7.9 x10^3/uL (4.0-11.0) Red Blood Count 4.31 x10^6/uL (4.30-5.70) Hemoglobin 14.4 g/dL (13.0-17.5) Hematocrit 41.7 % (39.0-53.0) Mean Corpuscular Volume 97 fL (79-100) Mean Corpuscular Hemoglobin 33 pg (25-35) Mean Corpuscular Hemoglobin Concent 35 g/dL (31-37) Red Cell Distribution Width 12.2 % (11.5-14.5) Platelet Count 440 x10^3/uL (140-400) Neutrophils (%) (Auto) 72 % (31-73) Lymphocytes (%) (Auto) 12 % (24-48) Monocytes (%) (Auto) 13 % (0-9) Eosinophils (%) (Auto) 3 % (0-3) Basophils (%) (Auto) 1 % (0-3) Neutrophils # (Auto) 5.7 x10^3/uL (1.8-7.7) Lymphocytes # (Auto) 0.9 x10^3/uL (1.0-4.8) Monocytes # (Auto) 1.0 x10^3/uL (0.0-1.1) Eosinophils # (Auto) 0.2 x10^3/uL (0.0-0.7) Basophils # (Auto) 0.0 x10^3/uL (0.0-0.2) Sodium Level 135 mmol/L (136-145) Potassium Level 4.2 mmol/L (3.5-5.1) Chloride Level 101 mmol/L (98-107) Carbon Dioxide Level 25 mmol/L (21-32) Anion Gap 9 (6-14) Blood Urea Nitrogen 17 mg/dL (8-26) Creatinine 1.2 mg/dL (0.7-1.3) Estimated GFR (Cockcroft-Gault) 61.8 Glucose Level 183 mg/dL (70-99) Calcium Level 8.7 mg/dL (8.5-10.1) Vancomycin Level Trough 12.5 mcg/mL (10.0-20.0) Vancomycin Last Dose Date Vancomycin Last Dose Time Test 09/10/21 07:29 09/10/21 12:12 Glucose (Fingerstick) 195 mg/dL (70-99) 154 mg/dL (70-99) Comment Review of Relevant I have reviewed the following items edilberto (where applicable) has been applied. Labs Laboratory Tests Test 09/08/21 16:32 09/08/21 18:54 09/09/21 07:29 09/09/21 11:18 Glucose (Fingerstick) 164 mg/dL (70-99) 133 mg/dL (70-99) 224 mg/dL (70-99) 181 mg/dL (70-99) Test 09/09/21 15:41 09/09/21 16:59 09/09/21 17:55 09/09/21 20:25 Glucose (Fingerstick) 165 mg/dL (70-99) 161 mg/dL (70-99) 143 mg/dL (70-99) 211 mg/dL (70-99) Test 09/10/21 02:35 09/10/21 07:29 09/10/21 12:12 White Blood Count 7.9 x10^3/uL (4.0-11.0) Red Blood Count 4.31 x10^6/uL (4.30-5.70) Hemoglobin 14.4 g/dL (13.0-17.5) Hematocrit 41.7 % (39.0-53.0) Mean Corpuscular Volume 97 fL (79-100) Mean Corpuscular Hemoglobin 33 pg (25-35) Mean Corpuscular Hemoglobin Concent 35 g/dL (31-37) Red Cell Distribution Width 12.2 % (11.5-14.5) Platelet Count 440 x10^3/uL (140-400) Neutrophils (%) (Auto) 72 % (31-73) Lymphocytes (%) (Auto) 12 % (24-48) Monocytes (%) (Auto) 13 % (0-9) Eosinophils (%) (Auto) 3 % (0-3) Basophils (%) (Auto) 1 % (0-3) Neutrophils # (Auto) 5.7 x10^3/uL (1.8-7.7) Lymphocytes # (Auto) 0.9 x10^3/uL (1.0-4.8) Monocytes # (Auto) 1.0 x10^3/uL (0.0-1.1) Eosinophils # (Auto) 0.2 x10^3/uL (0.0-0.7) Basophils # (Auto) 0.0 x10^3/uL (0.0-0.2) Sodium Level 135 mmol/L (136-145) Potassium Level 4.2 mmol/L (3.5-5.1) Chloride Level 101 mmol/L (98-107) Carbon Dioxide Level 25 mmol/L (21-32) Anion Gap 9 (6-14) Blood Urea Nitrogen 17 mg/dL (8-26) Creatinine 1.2 mg/dL (0.7-1.3) Estimated GFR (Cockcroft-Gault) 61.8 Glucose Level 183 mg/dL (70-99) Calcium Level 8.7 mg/dL (8.5-10.1) Vancomycin Level Trough 12.5 mcg/mL (10.0-20.0) Vancomycin Last Dose Date Vancomycin Last Dose Time Glucose (Fingerstick) 195 mg/dL (70-99) 154 mg/dL (70-99) Laboratory Tests Test 09/09/21 16:59 09/09/21 17:55 09/09/21 20:25 09/10/21 02:35 Glucose (Fingerstick) 161 mg/dL (70-99) 143 mg/dL (70-99) 211 mg/dL (70-99) White Blood Count 7.9 x10^3/uL (4.0-11.0) Red Blood Count 4.31 x10^6/uL (4.30-5.70) Hemoglobin 14.4 g/dL (13.0-17.5) Hematocrit 41.7 % (39.0-53.0) Mean Corpuscular Volume 97 fL (79-100) Mean Corpuscular Hemoglobin 33 pg (25-35) Mean Corpuscular Hemoglobin Concent 35 g/dL (31-37) Red Cell Distribution Width 12.2 % (11.5-14.5) Platelet Count 440 x10^3/uL (140-400) Neutrophils (%) (Auto) 72 % (31-73) Lymphocytes (%) (Auto) 12 % (24-48) Monocytes (%) (Auto) 13 % (0-9) Eosinophils (%) (Auto) 3 % (0-3) Basophils (%) (Auto) 1 % (0-3) Neutrophils # (Auto) 5.7 x10^3/uL (1.8-7.7) Lymphocytes # (Auto) 0.9 x10^3/uL (1.0-4.8) Monocytes # (Auto) 1.0 x10^3/uL (0.0-1.1) Eosinophils # (Auto) 0.2 x10^3/uL (0.0-0.7) Basophils # (Auto) 0.0 x10^3/uL (0.0-0.2) Sodium Level 135 mmol/L (136-145) Potassium Level 4.2 mmol/L (3.5-5.1) Chloride Level 101 mmol/L (98-107) Carbon Dioxide Level 25 mmol/L (21-32) Anion Gap 9 (6-14) Blood Urea Nitrogen 17 mg/dL (8-26) Creatinine 1.2 mg/dL (0.7-1.3) Estimated GFR (Cockcroft-Gault) 61.8 Glucose Level 183 mg/dL (70-99) Calcium Level 8.7 mg/dL (8.5-10.1) Vancomycin Level Trough 12.5 mcg/mL (10.0-20.0) Vancomycin Last Dose Date Vancomycin Last Dose Time Test 09/10/21 07:29 09/10/21 12:12 Glucose (Fingerstick) 195 mg/dL (70-99) 154 mg/dL (70-99) Microbiology 09/08/21 Blood Culture - Preliminary, Resulted NO GROWTH AFTER 1 DAY Medications Current Medications Vancomycin HCl (Vanco Per Pharmacy) 1 each PRN DAILY PRN MC SEE COMMENTS Last administered on 09/10/21at 03:44; Start 09/08/21 at 12:30 Piperacillin Sod/ Tazobactam Sod (Zosyn Per Pharmacy) 1 each PRN DAILY PRN MC SEE COMMENTS; Start 09/08/21 at 12:30 Acetaminophen (Tylenol) 650 mg PRN Q6HRS PRN PO MILD PAIN / TEMP > 100.3'F; Start 09/08/21 at 12:30; Stop 09/09/21 at 18:00; Status DC Vancomycin HCl 2 gm/Sodium Chloride 500 ml @ 250 mls/hr 1X ONCE IV Last administered on 09/08/21at 15:04; Start 09/08/21 at 12:45; Stop 09/08/21 at 14:49; Status DC Piperacillin Sod/ Tazobactam Sod 3.375 gm/Sodium Chloride 50 ml @ 100 mls/hr 1X ONCE IV ; Start 09/08/21 at 13:15; Stop 09/08/21 at 13:44; Status Cancel Influenza Virus Vaccine Quadrival (Flulaval Quad 1692-9152 Syringe) 0.5 ml ONCE ONCE VAX IM Last administered on 09/08/21at 16:30; Start 09/08/21 at 13:15; Stop 09/08/21 at 13:18; Status DC Piperacillin Sod/ Tazobactam Sod 3.375 gm/Sodium Chloride 50 ml @ 100 mls/hr Q6HRS IV Last administered on 09/10/21at 11:48; Start 09/08/21 at 18:00 Lisinopril (Prinivil) 10 mg DAILY PO Last administered on 09/10/21 08:54; Start 09/09/21 at 09:00 Citalopram Hydrobromide (CeleXA) 40 mg DAILY PO Last administered on 09/10/21 08:54; Start 09/09/21 at 09:00 Cyanocobalamin (Vitamin B-12) 2,500 mcg DAILY PO Last administered on 09/10/21 08:55; Start 09/09/21 at 09:00 Glipizide (Glucotrol) 10 mg BIDBFRMEAL PO Last administered on 09/10/21 08:54; Start 09/08/21 at 16:30 Atorvastatin Calcium (Lipitor) 80 mg QHS PO Last administered on 09/09/21at 20:17; Start 09/08/21 at 21:00 Insulin Glargine (Lantus Syringe) 10 unit QHS SQ Last administered on 09/09/21at 20:18; Start 09/08/21 at 21:00 Insulin Human Lispro (HumaLOG) 8 units TIDAC SQ Last administered on 09/10/21at 12:17; Start 09/08/21 at 16:30 Insulin Human Lispro (HumaLOG) 0-7 UNITS TIDWMEALS SQ Last administered on 09/10/21at 12:18; Start 09/08/21 at 17:00 Dextrose (Dextrose 50%-Water Syringe) 12.5 gm PRN Q15MIN PRN IV SEE COMMENTS; Start 09/08/21 at 14:45 Docusate Sodium (Colace) 100 mg DAILY PO Last administered on 09/10/21 08:54; Start 09/09/21 at 09:00 Zolpidem Tartrate (Ambien) 5 mg PRN QHS PRN PO INSOMNIA; Start 09/08/21 at 14:45 Vancomycin HCl 1.5 gm/Sodium Chloride 500 ml @ 250 mls/hr Q12H IV Last administered on 09/10/21at 14:14; Start 09/09/21 at 03:00 Vancomycin HCl (Vancomycin Trough Level) 1 each 1X ONCE MC Last administered on 09/10/21at 02:30; Start 09/10/21 at 02:30; Stop 09/10/21 at 02:31; Status DC Bupivacaine HCl (Sensorcaine Mpf 0.25%) 30 ml STK-MED ONCE .ROUTE Last administered on 09/09/21at 17:22; Start 09/09/21 at 14:00; Stop 09/09/21 at 14:00; Status DC Vancomycin HCl (Vancomycin) 1 gm STK-MED ONCE .ROUTE ; Start 09/09/21 at 14:00; Stop 09/09/21 at 14:00; Status DC Propofol (Diprivan) 200 mg STK-MED ONCE IV ; Start 09/09/21 at 14:18; Stop 09/09/21 at 14:19; Status DC Lidocaine HCl (Lidocaine Pf 2% Vial) 5 ml STK-MED ONCE .ROUTE ; Start 09/09/21 at 14:18; Stop 09/09/21 at 14:19; Status DC Dexamethasone Sodium Phosphate (Decadron) 4 mg STK-MED ONCE .ROUTE ; Start 09/09/21 at 14:18; Stop 09/09/21 at 14:19; Status DC Ondansetron HCl (Zofran) 4 mg STK-MED ONCE .ROUTE ; Start 09/09/21 at 14:18; Stop 09/09/21 at 14:19; Status DC Insulin Human Lispro (HumaLOG VIAL for OP,RR ONLY) 0-10 units PRN Q1HR PRN SQ PER PROTOCOL Last administered on 09/09/21at 17:09; Start 09/09/21 at 16:00; Stop 09/10/21 at 15:59; Status DC Fentanyl Citrate (Fentanyl 2ml Vial) 100 mcg STK-MED ONCE .ROUTE ; Start 09/09/21 at 16:09; Stop 09/09/21 at 16:09; Status DC Sevoflurane (Ultane) 30 ml STK-MED ONCE IH ; Start 09/09/21 at 16:27; Stop 09/09/21 at 16:28; Status DC Fentanyl Citrate (Fentanyl 2ml Vial) 25 mcg PRN Q5MIN PRN IVP MILD PAIN 1-3; Start 09/09/21 at 17:00; Stop 09/10/21 at 16:59 Fentanyl Citrate (Fentanyl 2ml Vial) 50 mcg PRN Q5MIN PRN IVP MODERATE PAIN 4- 6; Start 09/09/21 at 17:00; Stop 09/10/21 at 16:59 Morphine Sulfate (Morphine Sulfate) 1 mg PRN Q10MIN PRN IVP SEVERE PAIN 7-10; Start 09/09/21 at 17:00; Stop 09/10/21 at 16:59 Ringer's Solution 1,000 ml @ 30 mls/hr Q24H IV Last administered on 09/09/21at 16:00; Start 09/09/21 at 17:00; Stop 09/10/21 at 04:59; Status DC Hydromorphone HCl (Dilaudid) 0.5 mg PRN Q10MIN PRN IVP SEVERE PAIN 7-10, 2nd CHOICE; Start 09/09/21 at 17:00; Stop 09/10/21 at 16:59 Prochlorperazine Edisylate (Compazine) 5 mg PACU PRN PRN IVP NAUSEA, MRX1; Start 09/09/21 at 17:00; Stop 09/10/21 at 16:59 Acetaminophen (Tylenol) 650 mg Q6HRS PO Last administered on 09/10/21at 11:48; Start 09/09/21 at 18:00 Tramadol HCl (Ultram) 50 mg PRN Q6HRS PRN PO MILD-MODERATE PAIN; Start 09/09/21 at 18:00 Acetaminophen/ Hydrocodone Bitart (Lortab 5/325) 1 tab PRN Q6HRS PRN PO SEVERE PAIN; Start 09/09/21 at 18:00 Gabapentin (Neurontin) 100 mg TID PO Last administered on 09/10/21at 14:11; Start 09/09/21 at 21:00 Lactobacillus Rhamnosus (Culturelle) 1 cap BID PO ; Start 09/10/21 at 21:00 Active Scripts Active Reported Vitamin B12 (Cyanocobalamin (Vitamin B-12)) 2,500 Mcg Tablet 1 Tab PO DAILY 30 Days Lisinopril 10 Mg Tablet 1 Tab PO DAILY Crestor (Rosuvastatin Calcium) 40 Mg Tablet 0.5 Tab PO DAILY Citalopram Hbr (Citalopram Hydrobromide) 40 Mg Tablet 1 Tab PO DAILY Glipizide 10 Mg Tablet 1 Tab PO BID Metformin Hcl 1,000 Mg Tablet 1,000 Mg PO BIDWMEALS Vitals/I & O Vital Sign - Last 24 Hours 09/09/21 09/09/21 09/09/21 09/09/21 16:42 16:42 16:55 17:10 Temp 98.1 99 98.1 99.0 Pulse 77 82 86 Resp 16 16 16 B/P (MAP) 121/71 133/77 153/80 Pulse Ox 99 99 99 O2 Delivery Simple Mask Mask Simple Mask Room Air O2 Flow Rate 6 6 6 09/09/21 09/09/21 09/09/21 09/09/21 17:20 17:25 17:40 17:55 Pulse 80 79 83 B/P (MAP) 144/94 (111) 144/90 (108) 140/82 (101) Pulse Ox 96 94 95 O2 Delivery Room Air Room Air 09/09/21 09/09/21 09/09/21 09/10/21 18:10 20:30 23:00 03:00 Temp 98.8 98.9 98.4 98.8 98.9 98.4 Pulse 89 80 89 80 Resp 20 18 18 B/P (MAP) 157/88 (111) 152/90 (110) 144/84 (104) 129/78 (95) Pulse Ox 94 95 98 95 O2 Delivery Room Air Room Air Room Air 09/10/21 09/10/21 09/10/21 09/10/21 07:00 08:00 08:54 11:00 Temp 98.7 97.9 98.7 97.9 Pulse 77 77 91 Resp 18 20 B/P (MAP) 147/85 (105) 147/85 128/70 (89) Pulse Ox 94 98 O2 Delivery Room Air 09/10/21 15:00 Temp 97.9 97.9 Pulse 86 Resp 18 B/P (MAP) 133/84 (100) Pulse Ox 99 Intake and Output 09/09/21 09/09/21 09/10/21 15:00 23:00 07:00 Intake Total 350 ml 360 ml Output Total 20 ml Balance 330 ml 360 ml Justicifation of Admission Dx: Justifications for Admission: Justification of Admission Dx: Yes Sepsis: Failure of Out Pt Tx LEIGHANN SO MD Sep 10, 2021 16:08
--- NOTE | 2021-09-10 17:40 | NUR ---
Wound Care Wound Type/Assessment: 60y/o male, S/P Left Great Toe amputation. Post surgical dressing removed and wound vacuum Veriflow applied. Surgical dressing removed slowly with adequate moisture added from wound wash. No active bleeding noted, no odor and palpable pedal pulse. Wound was thoroughly cleansed, pictured and measured. Periwound has small amount of post surgical edema. Receding erythema noted below line of demarcation. Small amount of macerated tissue circumferential to wound edge. Base of wound has healthy, beefy red granulating tissue. Metarsal head appears healthy. Wound measures 4.0 x 5.0 x 2.0, noted undermining from 12:00 to 12:00 with a maximum depth of 1.0 cm. Wound vac veriflow applied with 2 pieces of black foam. Foam was bridged to left ankle. Excellent seal obtained at -125mmHg. Veriflow setting were 8cc's instilled, 3 minute dwell time, repeat every 5 hours. Installation fluid was normal saline. Treatment Recommendations/Plan: Dr. Chacon is planning on taking patient to the OR on Monday or Monday Education provided: Patient was educated on notifying staff if vac should leak or alarm. Vac is not to be off or alarming for greater that 2 hours. Offloading surface/device: None Recommended Referrals/Tests: None Discharge Recommendations for dressings: Continue wound vac therapy until surgery next week.
[2021-09-10 19:00] VITALS: BP 130/76
[2021-09-10] MEDS ORDERED: LACTOBACILLUS RHAMNOSUS GG 1 CAPSULE. PO SCH (21:00)
[2021-09-10] MEDS: ATORVASTATIN CALCIUM 40 MG TABLET. PO SCH (21:39)
[2021-09-10] MEDS: LACTOBACILLUS RHAMNOSUS GG 1 CAPSULE. PO SCH (21:40)
[2021-09-10] MEDS: INSULIN GLARGINE SYRINGE. SQ SCH (21:41)
[2021-09-10 23:00] VITALS: BP 118/78
[2021-09-11] MEDS: VANCOMYCIN 1.5 GM in IV NORMAL SALINE 500ML BAG 500 ML IV SCH ×2 (02:30→15:45)
[2021-09-11 03:00] VITALS: BP 125/79
[2021-09-11] MEDS: ACETAMINOPHEN 325 MG TABLET. PO SCH ×4 (05:43→23:42)
[2021-09-11] MEDS: PIPERACILLIN/TAZOBACTAM 3.375 GM in IV NORMAL SALINE 50ML 50 ML IV SCH ×4 (05:43→23:42)
[2021-09-11 07:00] VITALS: BP 113/79
[2021-09-11 07:19] LABS: BASO % 1 % (0-3); EOS # 0.2 x10^3/uL (0.0-0.7); EOS % 4 % (0-3); HEMATOCRIT 41.1 % (39.0-53.0); HEMOGLOBIN 14.4 g/dL (13.0-17.5); LYMPH # 1.2 x10^3/uL (1.0-4.8); LYMPH % 20 % (24-48); MEAN CORPUSCULAR HEMOGLOBIN 34 pg (25-35); MEAN CORPUSCULAR HGB CONC 35 g/dL (31-37); MEAN CORPUSCULAR VOLUME 97 fL (79-100); MONO # 0.8 x10^3/uL (0.0-1.1); MONO % 14 % (0-9); NEUT # 3.8 x10^3/uL (1.8-7.7); NEUT % 63 % (31-73); PLATELET COUNT 454 x10^3/uL (140-400); RED BLOOD COUNT 4.23 x10^6/uL (4.30-5.70); RED CELL DISTRIBUTION WIDTH 11.8 % (11.5-14.5)
[2021-09-11] MEDS: glipiZIDE 5 MG TABLET PO SCH ×2 (07:30→17:58)
[2021-09-11 07:55] LABS: GFR 76.2; POTASSIUM 4.4 mmol/L (3.5-5.1)
[2021-09-11] MEDS: DOCUSATE SODIUM 100 MG CAPSULE. PO SCH (09:00)
[2021-09-11] MEDS: GABAPENTIN 100 MG CAPSULE. PO SCH ×3 (09:00→21:55)
[2021-09-11] MEDS: CITALOPRAM 20 MG TABLET. PO SCH (09:00)
[2021-09-11] MEDS: LACTOBACILLUS RHAMNOSUS GG 1 CAPSULE. PO SCH ×2 (09:00→21:55)
[2021-09-11] MEDS: CYANOCOBALAMIN (VITAMIN B-12) 1,000 MCG TABLET. PO SCH (09:00)
[2021-09-11] MEDS: LISINOPRIL 10 MG TABLET PO SCH (09:00)
[2021-09-11] MEDS: INSULIN LISPRO 300 UNITS/3 ML VIAL. SQ SCH ×6 (09:48→18:02)
[2021-09-11] MEDS: VANCOMYCIN PER PHARMACY MC PRN (10:57)
[2021-09-11 11:00] VITALS: BP 132/82
--- NOTE | 2021-09-11 12:07 | PDOC ---
PROGRESS NOTES Date of Service DATE: 09/11/21 TIME: 12:03 Subjective Subjective [DOS 09/09] left hallux MTPJ disarticulation, packed open Patient was seen at bedside. Denies overnight events or constitutional symptoms. The packed dressing was replaced with a wound VAC on 09/10 by the wound care team at bedside. Patient denies any pain to the surgical foot. He has been tolerating the IV Vanco and Zosyn well without any adverse reaction. Objective Objective Vital Signs Date Time Temp Pulse Resp B/P (MAP) Pulse Ox O2 Delivery O2 Flow Rate FiO2 09/11/21 11:00 97.8 77 18 132/82 (99) 99 97.8 09/10/21 08:00 Room Air 09/09/21 16:55 6 Intake and Output 09/11/21 07:00 Intake Total 580 ml Output Total 675 ml Balance -95 ml Intake Oral 580 ml Output Urine Total 675 ml # Voids 3 Physical Exam Physical Exam General: Pleasant without apparent distress, AOx3 Left lower extremity focused Dermatology: -VAC is functioning at 125 mmHg -Dressings kept clean dry and intact without any strikethrough -Per chart review, dressing change from yesterday remarked receding erythema from the dorsal skin flap with adequate skin flap perfusion without necrotic or purulent discharge Vascular: -Foot is warm to touch with CFT less than 3 seconds x 5 Neurology: -Light touch sensation diminished to the level of digits 2 through 5 MSK: -[-] TTP at the surgical site -Able to move digits 2 through 5 -Muscle strength 5 out of 5 across ankle joint -Calf is soft and nontender Plan Plan of Care -Explained intraoperative finding remarked deep tissue abscess pocket to the distal hallux. Due to the extensive soft tissue compromise, the hallux was disarticulated at the MTPJ to stage for healthy skin flap closure. -Current antibiotic: Vancomycin and Zosyn -Deep tissue culture 09/09: Gram-positive cocci -Blood culture 09/08: No growth to date -Trend WBC daily -Keep the dressing clean, dry and intact -We will evaluate patient on Monday -Strict nonweightbearing to left lower extremity -PT eval and treat Dispo: Plan for repeat I&D and possible skin closure on Monday. N.p.o. after midnight on Monday Comment Review of Relevant I have reviewed the following items edilberto (where applicable) has been applied. Labs Laboratory Tests Test 09/09/21 15:41 09/09/21 16:59 09/09/21 17:55 09/09/21 20:25 Glucose (Fingerstick) 165 mg/dL (70-99) 161 mg/dL (70-99) 143 mg/dL (70-99) 211 mg/dL (70-99) Test 09/10/21 02:35 09/10/21 07:29 09/10/21 12:12 09/10/21 16:50 White Blood Count 7.9 x10^3/uL (4.0-11.0) Red Blood Count 4.31 x10^6/uL (4.30-5.70) Hemoglobin 14.4 g/dL (13.0-17.5) Hematocrit 41.7 % (39.0-53.0) Mean Corpuscular Volume 97 fL (79-100) Mean Corpuscular Hemoglobin 33 pg (25-35) Mean Corpuscular Hemoglobin Concent 35 g/dL (31-37) Red Cell Distribution Width 12.2 % (11.5-14.5) Platelet Count 440 x10^3/uL (140-400) Neutrophils (%) (Auto) 72 % (31-73) Lymphocytes (%) (Auto) 12 % (24-48) Monocytes (%) (Auto) 13 % (0-9) Eosinophils (%) (Auto) 3 % (0-3) Basophils (%) (Auto) 1 % (0-3) Neutrophils # (Auto) 5.7 x10^3/uL (1.8-7.7) Lymphocytes # (Auto) 0.9 x10^3/uL (1.0-4.8) Monocytes # (Auto) 1.0 x10^3/uL (0.0-1.1) Eosinophils # (Auto) 0.2 x10^3/uL (0.0-0.7) Basophils # (Auto) 0.0 x10^3/uL (0.0-0.2) Sodium Level 135 mmol/L (136-145) Potassium Level 4.2 mmol/L (3.5-5.1) Chloride Level 101 mmol/L (98-107) Carbon Dioxide Level 25 mmol/L (21-32) Anion Gap 9 (6-14) Blood Urea Nitrogen 17 mg/dL (8-26) Creatinine 1.2 mg/dL (0.7-1.3) Estimated GFR (Cockcroft-Gault) 61.8 Glucose Level 183 mg/dL (70-99) Calcium Level 8.7 mg/dL (8.5-10.1) Vancomycin Level Trough 12.5 mcg/mL (10.0-20.0) Vancomycin Last Dose Date Vancomycin Last Dose Time Glucose (Fingerstick) 195 mg/dL (70-99) 154 mg/dL (70-99) 92 mg/dL (70-99) Test 09/10/21 20:21 09/11/21 06:10 09/11/21 07:37 09/11/21 11:41 Glucose (Fingerstick) 195 mg/dL (70-99) 199 mg/dL (70-99) 149 mg/dL (70-99) White Blood Count 6.0 x10^3/uL (4.0-11.0) Red Blood Count 4.23 x10^6/uL (4.30-5.70) Hemoglobin 14.4 g/dL (13.0-17.5) Hematocrit 41.1 % (39.0-53.0) Mean Corpuscular Volume 97 fL (79-100) Mean Corpuscular Hemoglobin 34 pg (25-35) Mean Corpuscular Hemoglobin Concent 35 g/dL (31-37) Red Cell Distribution Width 11.8 % (11.5-14.5) Platelet Count 454 x10^3/uL (140-400) Neutrophils (%) (Auto) 63 % (31-73) Lymphocytes (%) (Auto) 20 % (24-48) Monocytes (%) (Auto) 14 % (0-9) Eosinophils (%) (Auto) 4 % (0-3) Basophils (%) (Auto) 1 % (0-3) Neutrophils # (Auto) 3.8 x10^3/uL (1.8-7.7) Lymphocytes # (Auto) 1.2 x10^3/uL (1.0-4.8) Monocytes # (Auto) 0.8 x10^3/uL (0.0-1.1) Eosinophils # (Auto) 0.2 x10^3/uL (0.0-0.7) Basophils # (Auto) 0.0 x10^3/uL (0.0-0.2) Sodium Level 140 mmol/L (136-145) Potassium Level 4.4 mmol/L (3.5-5.1) Chloride Level 104 mmol/L (98-107) Carbon Dioxide Level 28 mmol/L (21-32) Anion Gap 8 (6-14) Blood Urea Nitrogen 17 mg/dL (8-26) Creatinine 1.0 mg/dL (0.7-1.3) Estimated GFR (Cockcroft-Gault) 76.2 Glucose Level 196 mg/dL (70-99) Calcium Level 9.0 mg/dL (8.5-10.1) Laboratory Tests Test 09/10/21 12:12 09/10/21 16:50 09/10/21 20:21 09/11/21 06:10 Glucose (Fingerstick) 154 mg/dL (70-99) 92 mg/dL (70-99) 195 mg/dL (70-99) White Blood Count 6.0 x10^3/uL (4.0-11.0) Red Blood Count 4.23 x10^6/uL (4.30-5.70) Hemoglobin 14.4 g/dL (13.0-17.5) Hematocrit 41.1 % (39.0-53.0) Mean Corpuscular Volume 97 fL (79-100) Mean Corpuscular Hemoglobin 34 pg (25-35) Mean Corpuscular Hemoglobin Concent 35 g/dL (31-37) Red Cell Distribution Width 11.8 % (11.5-14.5) Platelet Count 454 x10^3/uL (140-400) Neutrophils (%) (Auto) 63 % (31-73) Lymphocytes (%) (Auto) 20 % (24-48) Monocytes (%) (Auto) 14 % (0-9) Eosinophils (%) (Auto) 4 % (0-3) Basophils (%) (Auto) 1 % (0-3) Neutrophils # (Auto) 3.8 x10^3/uL (1.8-7.7) Lymphocytes # (Auto) 1.2 x10^3/uL (1.0-4.8) Monocytes # (Auto) 0.8 x10^3/uL (0.0-1.1) Eosinophils # (Auto) 0.2 x10^3/uL (0.0-0.7) Basophils # (Auto) 0.0 x10^3/uL (0.0-0.2) Sodium Level 140 mmol/L (136-145) Potassium Level 4.4 mmol/L (3.5-5.1) Chloride Level 104 mmol/L (98-107) Carbon Dioxide Level 28 mmol/L (21-32) Anion Gap 8 (6-14) Blood Urea Nitrogen 17 mg/dL (8-26) Creatinine 1.0 mg/dL (0.7-1.3) Estimated GFR (Cockcroft-Gault) 76.2 Glucose Level 196 mg/dL (70-99) Calcium Level 9.0 mg/dL (8.5-10.1) Test 09/11/21 07:37 09/11/21 11:41 Glucose (Fingerstick) 199 mg/dL (70-99) 149 mg/dL (70-99) Microbiology 09/09/21 Gram Stain - Final, Resulted 09/09/21 Aerobic and Anaerobic Culture - Preliminary, Resulted 09/08/21 Blood Culture - Preliminary, Resulted NO GROWTH AFTER 2 DAYS Medications Current Medications Vancomycin HCl (Vanco Per Pharmacy) 1 each PRN DAILY PRN MC SEE COMMENTS Last administered on 09/11/21at 10:57; Start 09/08/21 at 12:30 Piperacillin Sod/ Tazobactam Sod (Zosyn Per Pharmacy) 1 each PRN DAILY PRN MC SEE COMMENTS; Start 09/08/21 at 12:30 Acetaminophen (Tylenol) 650 mg PRN Q6HRS PRN PO MILD PAIN / TEMP > 100.3'F; Start 09/08/21 at 12:30; Stop 09/09/21 at 18:00; Status DC Vancomycin HCl 2 gm/Sodium Chloride 500 ml @ 250 mls/hr 1X ONCE IV Last administered on 09/08/21at 15:04; Start 09/08/21 at 12:45; Stop 09/08/21 at 14:49; Status DC Piperacillin Sod/ Tazobactam Sod 3.375 gm/Sodium Chloride 50 ml @ 100 mls/hr 1X ONCE IV ; Start 09/08/21 at 13:15; Stop 09/08/21 at 13:44; Status Cancel Influenza Virus Vaccine Quadrival (Flulaval Quad Syringe) 0.5 ml ONCE ONCE VAX IM Last administered on 09/08/21at 16:30; Start 09/08/21 at 13:15; Stop 09/08/21 at 13:18; Status DC Piperacillin Sod/ Tazobactam Sod 3.375 gm/Sodium Chloride 50 ml @ 100 mls/hr Q6HRS IV Last administered on 09/11/21at 05:43; Start 09/08/21 at 18:00 Lisinopril (Prinivil) 10 mg DAILY PO Last administered on 09/11/21at 09:00; Start 09/09/21 at 09:00 Citalopram Hydrobromide (CeleXA) 40 mg DAILY PO Last administered on 09/11/21at 09:00; Start 09/09/21 at 09:00 Cyanocobalamin (Vitamin B-12) 2,500 mcg DAILY PO Last administered on 09/11/21at 09:00; Start 09/09/21 at 09:00 Glipizide (Glucotrol) 10 mg BIDBFRMEAL PO Last administered on 09/11/21at 07:30; Start 09/08/21 at 16:30 Atorvastatin Calcium (Lipitor) 80 mg QHS PO Last administered on 09/10/21at 21:39; Start 09/08/21 at 21:00 Insulin Glargine (Lantus Syringe) 10 unit QHS SQ Last administered on 09/10/21at 21:41; Start 09/08/21 at 21:00 Insulin Human Lispro (HumaLOG) 8 units TIDAC SQ Last administered on 09/11/21at 09:48; Start 09/08/21 at 16:30 Insulin Human Lispro (HumaLOG) 0-7 UNITS TIDWMEALS SQ Last administered on 08/30 01/17at 09:49; Start 09/08/21 at 17:00 Dextrose (Dextrose 50%-Water Syringe) 12.5 gm PRN Q15MIN PRN IV SEE COMMENTS; Start 09/08/21 at 14:45 Docusate Sodium (Colace) 100 mg DAILY PO Last administered on 09/11/21at 09:00; Start 09/09/21 at 09:00 Zolpidem Tartrate (Ambien) 5 mg PRN QHS PRN PO INSOMNIA; Start 09/08/21 at 14:45 Vancomycin HCl 1.5 gm/Sodium Chloride 500 ml @ 250 mls/hr Q12H IV Last administered on 09/11/21at 02:30; Start 09/09/21 at 03:00 Vancomycin HCl (Vancomycin Trough Level) 1 each 1X ONCE MC Last administered on 09/10/21at 02:30; Start 09/10/21 at 02:30; Stop 09/10/21 at 02:31; Status DC Bupivacaine HCl (Sensorcaine Mpf 0.25%) 30 ml STK-MED ONCE .ROUTE Last administered on 09/09/21at 17:22; Start 09/09/21 at 14:00; Stop 09/09/21 at 14:00; Status DC Vancomycin HCl (Vancomycin) 1 gm STK-MED ONCE .ROUTE ; Start 09/09/21 at 14:00; Stop 09/09/21 at 14:00; Status DC Propofol (Diprivan) 200 mg STK-MED ONCE IV ; Start 09/09/21 at 14:18; Stop 09/09/21 at 14:19; Status DC Lidocaine HCl (Lidocaine Pf 2% Vial) 5 ml STK-MED ONCE .ROUTE ; Start 09/09/21 at 14:18; Stop 09/09/21 at 14:19; Status DC Dexamethasone Sodium Phosphate (Decadron) 4 mg STK-MED ONCE .ROUTE ; Start 09/09/21 at 14:18; Stop 09/09/21 at 14:19; Status DC Ondansetron HCl (Zofran) 4 mg STK-MED ONCE .ROUTE ; Start 09/09/21 at 14:18; Stop 09/09/21 at 14:19; Status DC Insulin Human Lispro (HumaLOG VIAL for OP,RR ONLY) 0-10 units PRN Q1HR PRN SQ PER PROTOCOL Last administered on 09/09/21at 17:09; Start 09/09/21 at 16:00; Stop 09/10/21 at 15:59; Status DC Fentanyl Citrate (Fentanyl 2ml Vial) 100 mcg STK-MED ONCE .ROUTE ; Start 09/09/21 at 16:09; Stop 09/09/21 at 16:09; Status DC Sevoflurane (Ultane) 30 ml STK-MED ONCE IH ; Start 09/09/21 at 16:27; Stop 09/09/21 at 16:28; Status DC Fentanyl Citrate (Fentanyl 2ml Vial) 25 mcg PRN Q5MIN PRN IVP MILD PAIN 1-3; Start 09/09/21 at 17:00; Stop 09/10/21 at 16:59; Status DC Fentanyl Citrate (Fentanyl 2ml Vial) 50 mcg PRN Q5MIN PRN IVP MODERATE PAIN 4- 6; Start 09/09/21 at 17:00; Stop 09/10/21 at 16:59; Status DC Morphine Sulfate (Morphine Sulfate) 1 mg PRN Q10MIN PRN IVP SEVERE PAIN 7-10; Start 09/09/21 at 17:00; Stop 09/10/21 at 16:59; Status DC Ringer's Solution 1,000 ml @ 30 mls/hr Q24H IV Last administered on 09/09/21at 16:00; Start 09/09/21 at 17:00; Stop 09/10/21 at 04:59; Status DC Hydromorphone HCl (Dilaudid) 0.5 mg PRN Q10MIN PRN IVP SEVERE PAIN 7-10, 2nd CHOICE; Start 09/09/21 at 17:00; Stop 09/10/21 at 16:59; Status DC Prochlorperazine Edisylate (Compazine) 5 mg PACU PRN PRN IVP NAUSEA, MRX1; Start 09/09/21 at 17:00; Stop 09/10/21 at 16:59; Status DC Acetaminophen (Tylenol) 650 mg Q6HRS PO Last administered on 09/11/21at 05:43; Start 09/09/21 at 18:00 Tramadol HCl (Ultram) 50 mg PRN Q6HRS PRN PO MILD-MODERATE PAIN; Start 09/09/21 at 18:00 Acetaminophen/ Hydrocodone Bitart (Lortab 5/325) 1 tab PRN Q6HRS PRN PO SEVERE PAIN; Start 09/09/21 at 18:00 Gabapentin (Neurontin) 100 mg TID PO Last administered on 09/11/21at 09:00; Start 09/09/21 at 21:00 Lactobacillus Rhamnosus (Culturelle) 1 cap BID PO Last administered on 09/11/21at 09:00; Start 09/10/21 at 21:00 Lactobacillus Rhamnosus (Culturelle) 1 cap BID PO ; Start 09/10/21 at 21:00; Status UNV Active Scripts Active Reported Vitamin B12 (Cyanocobalamin (Vitamin B-12)) 2,500 Mcg Tablet 1 Tab PO DAILY 30 Days Lisinopril 10 Mg Tablet 1 Tab PO DAILY Crestor (Rosuvastatin Calcium) 40 Mg Tablet 0.5 Tab PO DAILY Citalopram Hbr (Citalopram Hydrobromide) 40 Mg Tablet 1 Tab PO DAILY Glipizide 10 Mg Tablet 1 Tab PO BID Metformin Hcl 1,000 Mg Tablet 1,000 Mg PO BIDWMEALS Vitals/I & O Vital Sign - Last 24 Hours 09/10/21 09/10/21 09/10/21 09/11/21 15:00 19:00 23:00 03:00 Temp 97.9 98.3 98.0 98.5 97.9 98.3 98.0 98.5 Pulse 86 84 82 79 Resp 18 18 18 18 B/P (MAP) 133/84 (100) 130/76 (94) 118/78 (91) 125/79 (94) Pulse Ox 99 98 99 98 09/11/21 09/11/21 09/11/21 07:00 09:00 11:00 Temp 97.7 97.8 97.7 97.8 Pulse 74 74 77 Resp 18 18 B/P (MAP) 113/79 (90) 113/79 132/82 (99) Pulse Ox 98 99 Intake and Output 09/10/21 09/10/21 09/11/21 15:00 23:00 07:00 Intake Total 580 ml Output Total 375 ml 300 ml Balance -375 ml 280 ml Justifications for Admission Other Justification ASHLEY LEDEZMA DPMarisel Sep 11, 2021 12:07
[2021-09-11 15:00] VITALS: BP 125/83
--- NOTE | 2021-09-11 15:14 | PDOC ---
PROGRESS NOTES Date of Service: DATE: 09/11/21 TIME: 15:13 Chief Complaint Chief Complaint Severe right great toe diabetic infection Diabetes Severe neuropathy Depression Hypertension Hyperlipidemia Insomnia Plan: Continue IV antibiotics Follow recommendations from physical therapy Wound VAC placement pending Reassess in the a.m. Further recommendations based on the clinical course History of Present Illness History of Present Illness 09/09/2021 Patient seen and examined He is scheduled to go to surgery later today (the left greater toe has severe swelling and obvious diabetic foot infection) Discussed with RN Discussed with case management Chart reviewed 09/10/2021 No acute events reported overnight, case discussed with nursing staff patient in no acute distress complaining of diarrhea. Reassurance has been provided. Wound VAC hopefully will be placed either today or tomorrow discussed results of hemoglobin A1c 09/11/2021 Continues to do well. He is now more open to continue with his insulin regimen in order to control his diabetes. Plans for OR early next week were discussed. Reassurance provided no concerns voiced during my encounter no acute events repo rted overnight Vitals Vitals Vital Signs Date Time Temp Pulse Resp B/P (MAP) Pulse Ox O2 Delivery O2 Flow Rate FiO2 09/11/21 11:00 97.8 77 18 132/82 (99) 99 97.8 09/11/21 08:17 Room Air 6.0 Physical Exam General: Alert, Oriented X3, Cooperative, No acute distress Heart: Regular rate Lungs: Clear Abdomen: Soft Extremities: Other (The left greater toe has severe infection please see the pictures) Skin: Other (left great toe redness, open wound) Labs LABS Laboratory Tests Test 09/10/21 16:50 09/10/21 20:21 09/11/21 06:10 09/11/21 07:37 Glucose (Fingerstick) 92 mg/dL (70-99) 195 mg/dL (70-99) 199 mg/dL (70-99) White Blood Count 6.0 x10^3/uL (4.0-11.0) Red Blood Count 4.23 x10^6/uL (4.30-5.70) Hemoglobin 14.4 g/dL (13.0-17.5) Hematocrit 41.1 % (39.0-53.0) Mean Corpuscular Volume 97 fL (79-100) Mean Corpuscular Hemoglobin 34 pg (25-35) Mean Corpuscular Hemoglobin Concent 35 g/dL (31-37) Red Cell Distribution Width 11.8 % (11.5-14.5) Platelet Count 454 x10^3/uL (140-400) Neutrophils (%) (Auto) 63 % (31-73) Lymphocytes (%) (Auto) 20 % (24-48) Monocytes (%) (Auto) 14 % (0-9) Eosinophils (%) (Auto) 4 % (0-3) Basophils (%) (Auto) 1 % (0-3) Neutrophils # (Auto) 3.8 x10^3/uL (1.8-7.7) Lymphocytes # (Auto) 1.2 x10^3/uL (1.0-4.8) Monocytes # (Auto) 0.8 x10^3/uL (0.0-1.1) Eosinophils # (Auto) 0.2 x10^3/uL (0.0-0.7) Basophils # (Auto) 0.0 x10^3/uL (0.0-0.2) Sodium Level 140 mmol/L (136-145) Potassium Level 4.4 mmol/L (3.5-5.1) Chloride Level 104 mmol/L (98-107) Carbon Dioxide Level 28 mmol/L (21-32) Anion Gap 8 (6-14) Blood Urea Nitrogen 17 mg/dL (8-26) Creatinine 1.0 mg/dL (0.7-1.3) Estimated GFR (Cockcroft-Gault) 76.2 Glucose Level 196 mg/dL (70-99) Calcium Level 9.0 mg/dL (8.5-10.1) Test 09/11/21 11:41 Glucose (Fingerstick) 149 mg/dL (70-99) Comment Review of Relevant I have reviewed the following items edilberto (where applicable) has been applied. Labs Laboratory Tests Test 09/09/21 15:41 09/09/21 16:59 09/09/21 17:55 09/09/21 20:25 Glucose (Fingerstick) 165 mg/dL (70-99) 161 mg/dL (70-99) 143 mg/dL (70-99) 211 mg/dL (70-99) Test 09/10/21 02:35 09/10/21 07:29 09/10/21 12:12 09/10/21 16:50 White Blood Count 7.9 x10^3/uL (4.0-11.0) Red Blood Count 4.31 x10^6/uL (4.30-5.70) Hemoglobin 14.4 g/dL (13.0-17.5) Hematocrit 41.7 % (39.0-53.0) Mean Corpuscular Volume 97 fL (79-100) Mean Corpuscular Hemoglobin 33 pg (25-35) Mean Corpuscular Hemoglobin Concent 35 g/dL (31-37) Red Cell Distribution Width 12.2 % (11.5-14.5) Platelet Count 440 x10^3/uL (140-400) Neutrophils (%) (Auto) 72 % (31-73) Lymphocytes (%) (Auto) 12 % (24-48) Monocytes (%) (Auto) 13 % (0-9) Eosinophils (%) (Auto) 3 % (0-3) Basophils (%) (Auto) 1 % (0-3) Neutrophils # (Auto) 5.7 x10^3/uL (1.8-7.7) Lymphocytes # (Auto) 0.9 x10^3/uL (1.0-4.8) Monocytes # (Auto) 1.0 x10^3/uL (0.0-1.1) Eosinophils # (Auto) 0.2 x10^3/uL (0.0-0.7) Basophils # (Auto) 0.0 x10^3/uL (0.0-0.2) Sodium Level 135 mmol/L (136-145) Potassium Level 4.2 mmol/L (3.5-5.1) Chloride Level 101 mmol/L (98-107) Carbon Dioxide Level 25 mmol/L (21-32) Anion Gap 9 (6-14) Blood Urea Nitrogen 17 mg/dL (8-26) Creatinine 1.2 mg/dL (0.7-1.3) Estimated GFR (Cockcroft-Gault) 61.8 Glucose Level 183 mg/dL (70-99) Calcium Level 8.7 mg/dL (8.5-10.1) Vancomycin Level Trough 12.5 mcg/mL (10.0-20.0) Vancomycin Last Dose Date Vancomycin Last Dose Time Glucose (Fingerstick) 195 mg/dL (70-99) 154 mg/dL (70-99) 92 mg/dL (70-99) Test 09/10/21 20:21 09/11/21 06:10 09/11/21 07:37 09/11/21 11:41 Glucose (Fingerstick) 195 mg/dL (70-99) 199 mg/dL (70-99) 149 mg/dL (70-99) White Blood Count 6.0 x10^3/uL (4.0-11.0) Red Blood Count 4.23 x10^6/uL (4.30-5.70) Hemoglobin 14.4 g/dL (13.0-17.5) Hematocrit 41.1 % (39.0-53.0) Mean Corpuscular Volume 97 fL (79-100) Mean Corpuscular Hemoglobin 34 pg (25-35) Mean Corpuscular Hemoglobin Concent 35 g/dL (31-37) Red Cell Distribution Width 11.8 % (11.5-14.5) Platelet Count 454 x10^3/uL (140-400) Neutrophils (%) (Auto) 63 % (31-73) Lymphocytes (%) (Auto) 20 % (24-48) Monocytes (%) (Auto) 14 % (0-9) Eosinophils (%) (Auto) 4 % (0-3) Basophils (%) (Auto) 1 % (0-3) Neutrophils # (Auto) 3.8 x10^3/uL (1.8-7.7) Lymphocytes # (Auto) 1.2 x10^3/uL (1.0-4.8) Monocytes # (Auto) 0.8 x10^3/uL (0.0-1.1) Eosinophils # (Auto) 0.2 x10^3/uL (0.0-0.7) Basophils # (Auto) 0.0 x10^3/uL (0.0-0.2) Sodium Level 140 mmol/L (136-145) Potassium Level 4.4 mmol/L (3.5-5.1) Chloride Level 104 mmol/L (98-107) Carbon Dioxide Level 28 mmol/L (21-32) Anion Gap 8 (6-14) Blood Urea Nitrogen 17 mg/dL (8-26) Creatinine 1.0 mg/dL (0.7-1.3) Estimated GFR (Cockcroft-Gault) 76.2 Glucose Level 196 mg/dL (70-99) Calcium Level 9.0 mg/dL (8.5-10.1) Laboratory Tests Test 09/10/21 16:50 09/10/21 20:21 09/11/21 06:10 09/11/21 07:37 Glucose (Fingerstick) 92 mg/dL (70-99) 195 mg/dL (70-99) 199 mg/dL (70-99) White Blood Count 6.0 x10^3/uL (4.0-11.0) Red Blood Count 4.23 x10^6/uL (4.30-5.70) Hemoglobin 14.4 g/dL (13.0-17.5) Hematocrit 41.1 % (39.0-53.0) Mean Corpuscular Volume 97 fL (79-100) Mean Corpuscular Hemoglobin 34 pg (25-35) Mean Corpuscular Hemoglobin Concent 35 g/dL (31-37) Red Cell Distribution Width 11.8 % (11.5-14.5) Platelet Count 454 x10^3/uL (140-400) Neutrophils (%) (Auto) 63 % (31-73) Lymphocytes (%) (Auto) 20 % (24-48) Monocytes (%) (Auto) 14 % (0-9) Eosinophils (%) (Auto) 4 % (0-3) Basophils (%) (Auto) 1 % (0-3) Neutrophils # (Auto) 3.8 x10^3/uL (1.8-7.7) Lymphocytes # (Auto) 1.2 x10^3/uL (1.0-4.8) Monocytes # (Auto) 0.8 x10^3/uL (0.0-1.1) Eosinophils # (Auto) 0.2 x10^3/uL (0.0-0.7) Basophils # (Auto) 0.0 x10^3/uL (0.0-0.2) Sodium Level 140 mmol/L (136-145) Potassium Level 4.4 mmol/L (3.5-5.1) Chloride Level 104 mmol/L (98-107) Carbon Dioxide Level 28 mmol/L (21-32) Anion Gap 8 (6-14) Blood Urea Nitrogen 17 mg/dL (8-26) Creatinine 1.0 mg/dL (0.7-1.3) Estimated GFR (Cockcroft-Gault) 76.2 Glucose Level 196 mg/dL (70-99) Calcium Level 9.0 mg/dL (8.5-10.1) Test 09/11/21 11:41 Glucose (Fingerstick) 149 mg/dL (70-99) Microbiology 09/09/21 Gram Stain - Final, Resulted 09/09/21 Aerobic and Anaerobic Culture - Preliminary, Resulted 09/08/21 Blood Culture - Preliminary, Resulted NO GROWTH AFTER 2 DAYS Medications Current Medications Vancomycin HCl (Vanco Per Pharmacy) 1 each PRN DAILY PRN MC SEE COMMENTS Last administered on 09/11/21at 10:57; Start 09/08/21 at 12:30 Piperacillin Sod/ Tazobactam Sod (Zosyn Per Pharmacy) 1 each PRN DAILY PRN MC SEE COMMENTS; Start 09/08/21 at 12:30 Acetaminophen (Tylenol) 650 mg PRN Q6HRS PRN PO MILD PAIN / TEMP > 100.3'F; Start 09/08/21 at 12:30; Stop 09/09/21 at 18:00; Status DC Vancomycin HCl 2 gm/Sodium Chloride 500 ml @ 250 mls/hr 1X ONCE IV Last administered on 09/08/21at 15:04; Start 09/08/21 at 12:45; Stop 09/08/21 at 14:49; Status DC Piperacillin Sod/ Tazobactam Sod 3.375 gm/Sodium Chloride 50 ml @ 100 mls/hr 1X ONCE IV ; Start 09/08/21 at 13:15; Stop 09/08/21 at 13:44; Status Cancel Influenza Virus Vaccine Quadrival (Flulaval Quad [id number] Syringe) 0.5 ml ONCE ONCE VAX IM Last administered on 09/08/21at 16:30; Start 09/08/21 at 13:15; Stop 09/08/21 at 13:18; Status DC Piperacillin Sod/ Tazobactam Sod 3.375 gm/Sodium Chloride 50 ml @ 100 mls/hr Q6HRS IV Last administered on 09/11/21at 13:18; Start 09/08/21 at 18:00 Lisinopril (Prinivil) 10 mg DAILY PO Last administered on 09/11/21 09:00; Start 09/09/21 at 09:00 Citalopram Hydrobromide (CeleXA) 40 mg DAILY PO Last administered on 09/11/21 09:00; Start 09/09/21 at 09:00 Cyanocobalamin (Vitamin B-12) 2,500 mcg DAILY PO Last administered on 09/11/21 09:00; Start 09/09/21 at 09:00 Glipizide (Glucotrol) 10 mg BIDBFRMEAL PO Last administered on 09/11/21 07:30; Start 09/08/21 at 16:30 Atorvastatin Calcium (Lipitor) 80 mg QHS PO Last administered on 09/10/21 21:39; Start 09/08/21 at 21:00 Insulin Glargine (Lantus Syringe) 10 unit QHS SQ Last administered on 09/10/21at 21:41; Start 09/08/21 at 21:00 Insulin Human Lispro (HumaLOG) 8 units TIDAC SQ Last administered on 09/11/21 13:31; Start 09/08/21 at 16:30 Insulin Human Lispro (HumaLOG) 0-7 UNITS TIDWMEALS SQ Last administered on 09/11/21 09:49; Start 09/08/21 at 17:00 Dextrose (Dextrose 50%-Water Syringe) 12.5 gm PRN Q15MIN PRN IV SEE COMMENTS; Start 09/08/21 at 14:45 Docusate Sodium (Colace) 100 mg DAILY PO Last administered on 09/11/21at 09:00; Start 09/09/21 at 09:00 Zolpidem Tartrate (Ambien) 5 mg PRN QHS PRN PO INSOMNIA; Start 09/08/21 at 14:45 Vancomycin HCl 1.5 gm/Sodium Chloride 500 ml @ 250 mls/hr Q12H IV Last administered on 09/11/21 02:30; Start 09/09/21 at 03:00 Vancomycin HCl (Vancomycin Trough Level) 1 each 1X ONCE MC Last administered on 09/10/21 02:30; Start 09/10/21 at 02:30; Stop 09/10/21 at 02:31; Status DC Bupivacaine HCl (Sensorcaine Mpf 0.25%) 30 ml STK-MED ONCE .ROUTE Last administered on 09/09/21at 17:22; Start 09/09/21 at 14:00; Stop 09/09/21 at 14:00; Status DC Vancomycin HCl (Vancomycin) 1 gm STK-MED ONCE .ROUTE ; Start 09/09/21 at 14:00; Stop 09/09/21 at 14:00; Status DC Propofol (Diprivan) 200 mg STK-MED ONCE IV ; Start 09/09/21 at 14:18; Stop 09/09/21 at 14:19; Status DC Lidocaine HCl (Lidocaine Pf 2% Vial) 5 ml STK-MED ONCE .ROUTE ; Start 09/09/21 at 14:18; Stop 09/09/21 at 14:19; Status DC Dexamethasone Sodium Phosphate (Decadron) 4 mg STK-MED ONCE .ROUTE ; Start 09/09/21 at 14:18; Stop 09/09/21 at 14:19; Status DC Ondansetron HCl (Zofran) 4 mg STK-MED ONCE .ROUTE ; Start 09/09/21 at 14:18; Stop 09/09/21 at 14:19; Status DC Insulin Human Lispro (HumaLOG VIAL for OP,RR ONLY) 0-10 units PRN Q1HR PRN SQ PER PROTOCOL Last administered on 09/09/21at 17:09; Start 09/09/21 at 16:00; Stop 09/10/21 at 15:59; Status DC Fentanyl Citrate (Fentanyl 2ml Vial) 100 mcg STK-MED ONCE .ROUTE ; Start at 16:09; Stop 09/09/21 at 16:09; Status DC Sevoflurane (Ultane) 30 ml STK-MED ONCE IH ; Start 09/09/21 at 16:27; Stop 09/09/21 at 16:28; Status DC Fentanyl Citrate (Fentanyl 2ml Vial) 25 mcg PRN Q5MIN PRN IVP MILD PAIN 1-3; Start 09/09/21 at 17:00; Stop 09/10/21 at 16:59; Status DC Fentanyl Citrate (Fentanyl 2ml Vial) 50 mcg PRN Q5MIN PRN IVP MODERATE PAIN 4- 6; Start 09/09/21 at 17:00; Stop 09/10/21 at 16:59; Status DC Morphine Sulfate (Morphine Sulfate) 1 mg PRN Q10MIN PRN IVP SEVERE PAIN 7-10; Start 09/09/21 at 17:00; Stop 09/10/21 at 16:59; Status DC Ringer's Solution 1,000 ml @ 30 mls/hr Q24H IV Last administered on 09/09/21at 16:00; Start 09/09/21 at 17:00; Stop 09/10/21 at 04:59; Status DC Hydromorphone HCl (Dilaudid) 0.5 mg PRN Q10MIN PRN IVP SEVERE PAIN 7-10, 2nd CHOICE; Start 09/09/21 at 17:00; Stop 09/10/21 at 16:59; Status DC Prochlorperazine Edisylate (Compazine) 5 mg PACU PRN PRN IVP NAUSEA, MRX1; Start 09/09/21 at 17:00; Stop 09/10/21 at 16:59; Status DC Acetaminophen (Tylenol) 650 mg Q6HRS PO Last administered on 09/11/21at 13:20; Start 09/09/21 at 18:00 Tramadol HCl (Ultram) 50 mg PRN Q6HRS PRN PO MILD-MODERATE PAIN; Start 09/09/21 at 18:00 Acetaminophen/ Hydrocodone Bitart (Lortab 5/325) 1 tab PRN Q6HRS PRN PO SEVERE PAIN; Start 09/09/21 at 18:00 Gabapentin (Neurontin) 100 mg TID PO Last administered on 09/11/21at 13:19; St art 09/09/21 at 21:00 Lactobacillus Rhamnosus (Culturelle) 1 cap BID PO Last administered on 09/11/21at 09:00; Start 09/10/21 at 21:00 Lactobacillus Rhamnosus (Culturelle) 1 cap BID PO ; Start 09/10/21 at 21:00; Status UNV Active Scripts Active Reported Vitamin B12 (Cyanocobalamin (Vitamin B-12)) 2,500 Mcg Tablet 1 Tab PO DAILY 30 Days Lisinopril 10 Mg Tablet 1 Tab PO DAILY Crestor (Rosuvastatin Calcium) 40 Mg Tablet 0.5 Tab PO DAILY Citalopram Hbr (Citalopram Hydrobromide) 40 Mg Tablet 1 Tab PO DAILY Glipizide 10 Mg Tablet 1 Tab PO BID Metformin Hcl 1,000 Mg Tablet 1,000 Mg PO BIDWMEALS Vitals/I & O Vital Sign - Last 24 Hours 09/10/21 09/10/21 09/11/21 09/11/21 19:00 23:00 03:00 07:00 Temp 98.3 98.0 98.5 97.7 98.3 98.0 98.5 97.7 Pulse 84 82 79 74 Resp 18 18 18 18 B/P (MAP) 130/76 (94) 118/78 (91) 125/79 (94) 113/79 (90) Pulse Ox 98 99 98 98 09/11/21 09/11/21 09/11/21 08:17 09:00 11:00 Temp 97.8 97.8 Pulse 74 77 Resp 18 B/P (MAP) 113/79 132/82 (99) Pulse Ox 99 O2 Delivery Room Air O2 Flow Rate 6.0 Intake and Output 09/10/21 09/10/21 09/11/21 15:00 23:00 07:00 Intake Total 580 ml Output Total 375 ml 300 ml Balance -375 ml 280 ml Justicifation of Admission Dx: Justifications for Admission: Justification of Admission Dx: Yes Sepsis: Failure of Out Pt LEIGHANN Horn MD Sep 11, 2021 15:14
[2021-09-11 19:00] VITALS: BP 126/79
[2021-09-11] MEDS: ATORVASTATIN CALCIUM 40 MG TABLET. PO SCH (21:55)
[2021-09-11 23:00] VITALS: BP 135/71
[2021-09-11] MEDS: INSULIN GLARGINE SYRINGE. SQ SCH (23:12)
[2021-09-12 03:00] VITALS: BP 116/67
[2021-09-12] MEDS: VANCOMYCIN 1.5 GM in IV NORMAL SALINE 500ML BAG 500 ML IV SCH ×2 (03:01→14:37)
[2021-09-12] MEDS: ACETAMINOPHEN 325 MG TABLET. PO SCH ×4 (05:44→22:51)
[2021-09-12] MEDS: PIPERACILLIN/TAZOBACTAM 3.375 GM in IV NORMAL SALINE 50ML 50 ML IV SCH ×3 (05:45→17:43)
[2021-09-12 07:00] VITALS: BP 119/66
[2021-09-12 07:16] LABS: BASO % 1 % (0-3); EOS # 0.2 x10^3/uL (0.0-0.7); EOS % 4 % (0-3); HEMATOCRIT 42.1 % (39.0-53.0); HEMOGLOBIN 14.7 g/dL (13.0-17.5); LYMPH # 1.3 x10^3/uL (1.0-4.8); LYMPH % 21 % (24-48); MEAN CORPUSCULAR HEMOGLOBIN 34 pg (25-35); MEAN CORPUSCULAR HGB CONC 35 g/dL (31-37); MEAN CORPUSCULAR VOLUME 98 fL (79-100); MONO # 0.7 x10^3/uL (0.0-1.1); MONO % 11 % (0-9); NEUT # 4.1 x10^3/uL (1.8-7.7); NEUT % 64 % (31-73); PLATELET COUNT 493 x10^3/uL (140-400); RED BLOOD COUNT 4.32 x10^6/uL (4.30-5.70); WHITE BLOOD COUNT 6.4 x10^3/uL (4.0-11.0)
[2021-09-12 07:50] LABS: GFR 76.2; POTASSIUM 4.4 mmol/L (3.5-5.1)
[2021-09-12] MEDS: CYANOCOBALAMIN (VITAMIN B-12) 1,000 MCG TABLET. PO SCH (08:19)
[2021-09-12] MEDS: glipiZIDE 5 MG TABLET PO SCH (08:20)
[2021-09-12] MEDS: LISINOPRIL 10 MG TABLET PO SCH (08:20)
[2021-09-12] MEDS: CITALOPRAM 20 MG TABLET. PO SCH (08:20)
[2021-09-12] MEDS: LACTOBACILLUS RHAMNOSUS GG 1 CAPSULE. PO SCH ×2 (08:20→22:45)
[2021-09-12] MEDS: GABAPENTIN 100 MG CAPSULE. PO SCH ×3 (08:20→22:45)
[2021-09-12] MEDS: INSULIN LISPRO 300 UNITS/3 ML VIAL. SQ SCH ×6 (08:27→17:51)
[2021-09-12] MEDS: DOCUSATE SODIUM 100 MG CAPSULE. PO SCH (08:28)
[2021-09-12 11:00] VITALS: BP 111/65
[2021-09-12] MEDS: VANCOMYCIN PER PHARMACY MC PRN (11:17)
[2021-09-12] MEDS: INSULIN GLARGINE SYRINGE. SQ SCH (12:47)
[2021-09-12 15:00] VITALS: BP 117/73
--- NOTE | 2021-09-12 16:36 | PDOC ---
PROGRESS NOTES Date of Service: DATE: 09/12/21 TIME: 16:35 Chief Complaint Chief Complaint Severe right great toe diabetic infection Diabetes Severe neuropathy Depression Hypertension Hyperlipidemia Insomnia Plan: Continue IV antibiotics Follow recommendations from physical therapy Wound VAC placement pending Reassess in the a.m. Further recommendations based on the clinical course History of Present Illness History of Present Illness 09/09/2021 Patient seen and examined He is scheduled to go to surgery later today (the left greater toe has severe swelling and obvious diabetic foot infection) Discussed with RN Discussed with case management Chart reviewed 09/10/2021 No acute events reported overnight, case discussed with nursing staff patient in no acute distress complaining of diarrhea. Reassurance has been provided. Wound VAC hopefully will be placed either today or tomorrow discussed results of hemoglobin A1c 09/11/2021 Continues to do well. He is now more open to continue with his insulin regimen in order to control his diabetes. Plans for OR early next week were discussed. Reassurance provided no concerns voiced during my encounter no acute events repo rted overnight 09/12/2021 No acute events reported overnight, case discussed with nursing staff patient in no acute distress no complaints during my visit Vitals Vitals Vital Signs Date Time Temp Pulse Resp B/P (MAP) Pulse Ox O2 Delivery O2 Flow Rate FiO2 09/12/21 08:20 73 116/67 09/12/21 08:00 Room Air 09/12/21 07:00 98.0 18 96 98.0 09/12/21 03:00 6.0 Physical Exam General: Alert, Oriented X3, Cooperative, No acute distress Heart: Regular rate Lungs: Clear Abdomen: Soft Extremities: Other (The left greater toe has severe infection please see the pictures) Skin: Other (left great toe redness, open wound) Labs LABS Laboratory Tests Test 09/11/21 17:10 09/11/21 19:57 09/12/21 06:15 09/12/21 07:43 Glucose (Fingerstick) 242 mg/dL (70-99) 196 mg/dL (70-99) 204 mg/dL (70-99) White Blood Count 6.4 x10^3/uL (4.0-11.0) Red Blood Count 4.32 x10^6/uL (4.30-5.70) Hemoglobin 14.7 g/dL (13.0-17.5) Hematocrit 42.1 % (39.0-53.0) Mean Corpuscular Volume 98 fL (79-100) Mean Corpuscular Hemoglobin 34 pg (25-35) Mean Corpuscular Hemoglobin Concent 35 g/dL (31-37) Red Cell Distribution Width 12.0 % (11.5-14.5) Platelet Count 493 x10^3/uL (140-400) Neutrophils (%) (Auto) 64 % (31-73) Lymphocytes (%) (Auto) 21 % (24-48) Monocytes (%) (Auto) 11 % (0-9) Eosinophils (%) (Auto) 4 % (0-3) Basophils (%) (Auto) 1 % (0-3) Neutrophils # (Auto) 4.1 x10^3/uL (1.8-7.7) Lymphocytes # (Auto) 1.3 x10^3/uL (1.0-4.8) Monocytes # (Auto) 0.7 x10^3/uL (0.0-1.1) Eosinophils # (Auto) 0.2 x10^3/uL (0.0-0.7) Basophils # (Auto) 0.0 x10^3/uL (0.0-0.2) Sodium Level 141 mmol/L (136-145) Potassium Level 4.4 mmol/L (3.5-5.1) Chloride Level 105 mmol/L (98-107) Carbon Dioxide Level 25 mmol/L (21-32) Anion Gap 11 (6-14) Blood Urea Nitrogen 16 mg/dL (8-26) Creatinine 1.0 mg/dL (0.7-1.3) Estimated GFR (Cockcroft-Gault) 76.2 Glucose Level 200 mg/dL (70-99) Calcium Level 9.0 mg/dL (8.5-10.1) Test 09/12/21 11:45 Glucose (Fingerstick) 137 mg/dL (70-99) Comment Review of Relevant I have reviewed the following items edilberto (where applicable) has been applied. Labs Laboratory Tests Test 09/10/21 16:50 09/10/21 20:21 09/11/21 06:10 09/11/21 07:37 Glucose (Fingerstick) 92 mg/dL (70-99) 195 mg/dL (70-99) 199 mg/dL (70-99) White Blood Count 6.0 x10^3/uL (4.0-11.0) Red Blood Count 4.23 x10^6/uL (4.30-5.70) Hemoglobin 14.4 g/dL (13.0-17.5) Hematocrit 41.1 % (39.0-53.0) Mean Corpuscular Volume 97 fL (79-100) Mean Corpuscular Hemoglobin 34 pg (25-35) Mean Corpuscular Hemoglobin Concent 35 g/dL (31-37) Red Cell Distribution Width 11.8 % (11.5-14.5) Platelet Count 454 x10^3/uL (140-400) Neutrophils (%) (Auto) 63 % (31-73) Lymphocytes (%) (Auto) 20 % (24-48) Monocytes (%) (Auto) 14 % (0-9) Eosinophils (%) (Auto) 4 % (0-3) Basophils (%) (Auto) 1 % (0-3) Neutrophils # (Auto) 3.8 x10^3/uL (1.8-7.7) Lymphocytes # (Auto) 1.2 x10^3/uL (1.0-4.8) Monocytes # (Auto) 0.8 x10^3/uL (0.0-1.1) Eosinophils # (Auto) 0.2 x10^3/uL (0.0-0.7) Basophils # (Auto) 0.0 x10^3/uL (0.0-0.2) Sodium Level 140 mmol/L (136-145) Potassium Level 4.4 mmol/L (3.5-5.1) Chloride Level 104 mmol/L (98-107) Carbon Dioxide Level 28 mmol/L (21-32) Anion Gap 8 (6-14) Blood Urea Nitrogen 17 mg/dL (8-26) Creatinine 1.0 mg/dL (0.7-1.3) Estimated GFR (Cockcroft-Gault) 76.2 Glucose Level 196 mg/dL (70-99) Calcium Level 9.0 mg/dL (8.5-10.1) Test 09/11/21 11:41 09/11/21 17:10 09/11/21 19:57 09/12/21 06:15 Glucose (Fingerstick) 149 mg/dL (70-99) 242 mg/dL (70-99) 196 mg/dL (70-99) White Blood Count 6.4 x10^3/uL (4.0-11.0) Red Blood Count 4.32 x10^6/uL (4.30-5.70) Hemoglobin 14.7 g/dL (13.0-17.5) Hematocrit 42.1 % (39.0-53.0) Mean Corpuscular Volume 98 fL (79-100) Mean Corpuscular Hemoglobin 34 pg (25-35) Mean Corpuscular Hemoglobin Concent 35 g/dL (31-37) Red Cell Distribution Width 12.0 % (11.5-14.5) Platelet Count 493 x10^3/uL (140-400) Neutrophils (%) (Auto) 64 % (31-73) Lymphocytes (%) (Auto) 21 % (24-48) Monocytes (%) (Auto) 11 % (0-9) Eosinophils (%) (Auto) 4 % (0-3) Basophils (%) (Auto) 1 % (0-3) Neutrophils # (Auto) 4.1 x10^3/uL (1.8-7.7) Lymphocytes # (Auto) 1.3 x10^3/uL (1.0-4.8) Monocytes # (Auto) 0.7 x10^3/uL (0.0-1.1) Eosinophils # (Auto) 0.2 x10^3/uL (0.0-0.7) Basophils # (Auto) 0.0 x10^3/uL (0.0-0.2) Sodium Level 141 mmol/L (136-145) Potassium Level 4.4 mmol/L (3.5-5.1) Chloride Level 105 mmol/L (98-107) Carbon Dioxide Level 25 mmol/L (21-32) Anion Gap 11 (6-14) Blood Urea Nitrogen 16 mg/dL (8-26) Creatinine 1.0 mg/dL (0.7-1.3) Estimated GFR (Cockcroft-Gault) 76.2 Glucose Level 200 mg/dL (70-99) Calcium Level 9.0 mg/dL (8.5-10.1) Test 09/12/21 07:43 09/12/21 11:45 Glucose (Fingerstick) 204 mg/dL (70-99) 137 mg/dL (70-99) Laboratory Tests Test 09/11/21 17:10 09/11/21 19:57 09/12/21 06:15 09/12/21 07:43 Glucose (Fingerstick) 242 mg/dL (70-99) 196 mg/dL (70-99) 204 mg/dL (70-99) White Blood Count 6.4 x10^3/uL (4.0-11.0) Red Blood Count 4.32 x10^6/uL (4.30-5.70) Hemoglobin 14.7 g/dL (13.0-17.5) Hematocrit 42.1 % (39.0-53.0) Mean Corpuscular Volume 98 fL (79-100) Mean Corpuscular Hemoglobin 34 pg (25-35) Mean Corpuscular Hemoglobin Concent 35 g/dL (31-37) Red Cell Distribution Width 12.0 % (11.5-14.5) Platelet Count 493 x10^3/uL (140-400) Neutrophils (%) (Auto) 64 % (31-73) Lymphocytes (%) (Auto) 21 % (24-48) Monocytes (%) (Auto) 11 % (0-9) Eosinophils (%) (Auto) 4 % (0-3) Basophils (%) (Auto) 1 % (0-3) Neutrophils # (Auto) 4.1 x10^3/uL (1.8-7.7) Lymphocytes # (Auto) 1.3 x10^3/uL (1.0-4.8) Monocytes # (Auto) 0.7 x10^3/uL (0.0-1.1) Eosinophils # (Auto) 0.2 x10^3/uL (0.0-0.7) Basophils # (Auto) 0.0 x10^3/uL (0.0-0.2) Sodium Level 141 mmol/L (136-145) Potassium Level 4.4 mmol/L (3.5-5.1) Chloride Level 105 mmol/L (98-107) Carbon Dioxide Level 25 mmol/L (21-32) Anion Gap 11 (6-14) Blood Urea Nitrogen 16 mg/dL (8-26) Creatinine 1.0 mg/dL (0.7-1.3) Estimated GFR (Cockcroft-Gault) 76.2 Glucose Level 200 mg/dL (70-99) Calcium Level 9.0 mg/dL (8.5-10.1) Test 09/12/21 11:45 Glucose (Fingerstick) 137 mg/dL (70-99) Microbiology 09/09/21 Gram Stain - Final, Resulted 09/09/21 Aerobic and Anaerobic Culture - Preliminary, Resulted 09/08/21 Blood Culture - Preliminary, Resulted NO GROWTH AFTER 3 DAYS Medications Current Medications Vancomycin HCl (Vanco Per Pharmacy) 1 each PRN DAILY PRN MC SEE COMMENTS Last administered on 09/12/21at 11:17; Start 09/08/21 at 12:30 Piperacillin Sod/ Tazobactam Sod (Zosyn Per Pharmacy) 1 each PRN DAILY PRN MC SEE COMMENTS; Start 09/08/21 at 12:30 Acetaminophen (Tylenol) 650 mg PRN Q6HRS PRN PO MILD PAIN / TEMP > 100.3'F; Start 09/08/21 at 12:30; Stop 09/09/21 at 18:00; Status DC Vancomycin HCl 2 gm/Sodium Chloride 500 ml @ 250 mls/hr 1X ONCE IV Last administered on 09/08/21at 15:04; Start 09/08/21 at 12:45; Stop 09/08/21 at 14:49; Status DC Piperacillin Sod/ Tazobactam Sod 3.375 gm/Sodium Chloride 50 ml @ 100 mls/hr 1X ONCE IV ; Start 09/08/21 at 13:15; Stop 09/08/21 at 13:44; Status Cancel Influenza Virus Vaccine Quadrival (Flulaval Quad 1305-1439 Syringe) 0.5 ml ONCE ONCE VAX IM Last administered on 09/08/21at 16:30; Start 09/08/21 at 13:15; Stop 09/08/21 at 13:18; Status DC Piperacillin Sod/ Tazobactam Sod 3.375 gm/Sodium Chloride 50 ml @ 100 mls/hr Q6HRS IV Last administered on 09/12/21at 12:41; Start 09/08/21 at 18:00 Lisinopril (Prinivil) 10 mg DAILY PO Last administered on 09/12/21 08:20; Start 09/09/21 at 09:00 Citalopram Hydrobromide (CeleXA) 40 mg DAILY PO Last administered on 09/12/21at 08:20; Start 09/09/21 at 09:00 Cyanocobalamin (Vitamin B-12) 2,500 mcg DAILY PO Last administered on 09/12/21at 08:19; Start 09/09/21 at 09:00 Glipizide (Glucotrol) 10 mg BIDBFRMEAL PO Last administered on 09/12/21at 08:20; Start 09/08/21 at 16:30; Stop 09/12/21 at 08:46; Status DC Atorvastatin Calcium (Lipitor) 80 mg QHS PO Last administered on 09/11/21at 21:55; Start 09/08/21 at 21:00 Insulin Glargine (Lantus Syringe) 10 unit QHS SQ Last administered on 09/11/21at 23:12; Start 09/08/21 at 21:00; Stop 09/12/21 at 08:46; Status DC Insulin Human Lispro (HumaLOG) 8 units TIDAC SQ Last administered on 09/12/21at 12:47; Start 09/08/21 at 16:30 Insulin Human Lispro (HumaLOG) 0-7 UNITS TIDWMEALS SQ Last administered on 09/12/21at 08:28; Start 09/08/21 at 17:00 Dextrose (Dextrose 50%-Water Syringe) 12.5 gm PRN Q15MIN PRN IV SEE COMMENTS; Start 09/08/21 at 14:45 Docusate Sodium (Colace) 100 mg DAILY PO Last administered on 09/11/21at 09:00; Start 09/09/21 at 09:00 Zolpidem Tartrate (Ambien) 5 mg PRN QHS PRN PO INSOMNIA; Start 09/08/21 at 14:45 Vancomycin HCl 1.5 gm/Sodium Chloride 500 ml @ 250 mls/hr Q12H IV Last administered on 09/12/21at 14:37; Start 09/09/21 at 03:00 Vancomycin HCl (Vancomycin Trough Level) 1 each 1X ONCE MC Last administered on 09/10/21at 02:30; Start 09/10/21 at 02:30; Stop 09/10/21 at 02:31; Status DC Bupivacaine HCl (Sensorcaine Mpf 0.25%) 30 ml STK-MED ONCE .ROUTE Last administered on 09/09/21at 17:22; Start 09/09/21 at 14:00; Stop 09/09/21 at 14:00; Status DC Vancomycin HCl (Vancomycin) 1 gm STK-MED ONCE .ROUTE ; Start 09/09/21 at 14:00; Stop 09/09/21 at 14:00; Status DC Propofol (Diprivan) 200 mg STK-MED ONCE IV ; Start 09/09/21 at 14:18; Stop 09/09/21 at 14:19; Status DC Lidocaine HCl (Lidocaine Pf 2% Vial) 5 ml STK-MED ONCE .ROUTE ; Start 09/09/21 at 14:18; Stop 09/09/21 at 14:19; Status DC Dexamethasone Sodium Phosphate (Decadron) 4 mg STK-MED ONCE .ROUTE ; Start 09/09/21 at 14:18; Stop 09/09/21 at 14:19; Status DC Ondansetron HCl (Zofran) 4 mg STK-MED ONCE .ROUTE ; Start 09/09/21 at 14:18; Stop 09/09/21 at 14:19; Status DC Insulin Human Lispro (HumaLOG VIAL for OP,RR ONLY) 0-10 units PRN Q1HR PRN SQ PER PROTOCOL Last administered on 09/09/21at 17:09; Start 09/09/21 at 16:00; Stop 09/10/21 at 15:59; Status DC Fentanyl Citrate (Fentanyl 2ml Vial) 100 mcg STK-MED ONCE .ROUTE ; Start 09/09/21 at 16:09; Stop 09/09/21 at 16:09; Status DC Sevoflurane (Ultane) 30 ml STK-MED ONCE IH ; Start 09/09/21 at 16:27; Stop 09/09/21 at 16:28; Status DC Fentanyl Citrate (Fentanyl 2ml Vial) 25 mcg PRN Q5MIN PRN IVP MILD PAIN 1-3; Start 09/09/21 at 17:00; Stop 09/10/21 at 16:59; Status DC Fentanyl Citrate (Fentanyl 2ml Vial) 50 mcg PRN Q5MIN PRN IVP MODERATE PAIN 4- 6; Start 09/09/21 at 17:00; Stop 09/10/21 at 16:59; Status DC Morphine Sulfate (Morphine Sulfate) 1 mg PRN Q10MIN PRN IVP SEVERE PAIN 7-10; Start 09/09/21 at 17:00; Stop 09/10/21 at 16:59; Status DC Ringer's Solution 1,000 ml @ 30 mls/hr Q24H IV Last administered on 09/09/21at 16:00; Start 09/09/21 at 17:00; Stop 09/10/21 at 04:59; Status DC Hydromorphone HCl (Dilaudid) 0.5 mg PRN Q10MIN PRN IVP SEVERE PAIN 7-10, 2nd CHOICE; Start 09/09/21 at 17:00; Stop 09/10/21 at 16:59; Status DC Prochlorperazine Edisylate (Compazine) 5 mg PACU PRN PRN IVP NAUSEA, MRX1; Start 09/09/21 at 17:00; Stop 09/10/21 at 16:59; Status DC Acetaminophen (Tylenol) 650 mg Q6HRS PO Last administered on 09/12/21at 12:41; Start 09/09/21 at 18:00 Tramadol HCl (Ultram) 50 mg PRN Q6HRS PRN PO MILD-MODERATE PAIN; Start 09/09/21 at 18:00 Acetaminophen/ Hydrocodone Bitart (Lortab 5/325) 1 tab PRN Q6HRS PRN PO SEVERE PAIN; Start 09/09/21 at 18:00 Gabapentin (Neurontin) 100 mg TID PO Last administered on 09/12/21at 14:36; Start 09/09/21 at 21:00 Lactobacillus Rhamnosus (Culturelle) 1 cap BID PO Last administered on 09/12/21at 08:20; Start 09/10/21 at 21:00 Lactobacillus Rhamnosus (Culturelle) 1 cap BID PO ; Start 09/10/21 at 21:00; Status UNV Insulin Glargine (Lantus Syringe) 14 unit DAILY SQ Last administered on 09/12/21at 12:47; Start 09/12/21 at 09:00 Active Scripts Active Reported Vitamin B12 (Cyanocobalamin (Vitamin B-12)) 2,500 Mcg Tablet 1 Tab PO DAILY 30 Days Lisinopril 10 Mg Tablet 1 Tab PO DAILY Crestor (Rosuvastatin Calcium) 40 Mg Tablet 0.5 Tab PO DAILY Citalopram Hbr (Citalopram Hydrobromide) 40 Mg Tablet 1 Tab PO DAILY Glipizide 10 Mg Tablet 1 Tab PO BID Metformin Hcl 1,000 Mg Tablet 1,000 Mg PO BIDWMEALS Vitals/I & O Vital Sign - Last 24 Hours 09/11/21 09/11/21 09/11/21 09/12/21 19:00 20:00 23:00 03:00 Temp 98.1 98.7 98.1 98.7 Pulse 82 80 73 Resp 18 18 18 B/P (MAP) 126/79 (95) 135/71 (92) 116/67 (83) Pulse Ox 99 99 97 O2 Delivery Room Air Room Air Room Air Room Air O2 Flow Rate 6.0 09/12/21 09/12/21 09/12/21 07:00 08:00 08:20 Temp 98.0 98.0 Pulse 70 73 Resp 18 B/P (MAP) 119/66 (83) 116/67 Pulse Ox 96 O2 Delivery Room Air Room Air Intake and Output 09/11/21 09/11/21 09/12/21 15:00 23:00 07:00 Intake Total 340 ml 220 ml Balance 340 ml 220 ml Justicifation of Admission Dx: Justifications for Admission: Justification of Admission Dx: Yes Sepsis: Failure of Out Pt LEIGHANN Horn MD Sep 12, 2021 16:36
[2021-09-12 19:00] VITALS: BP 132/76
[2021-09-12] MEDS: ATORVASTATIN CALCIUM 40 MG TABLET. PO SCH (21:00)
[2021-09-12] MEDS: ZOLPIDEM 5 MG TABLET. PO PRN (22:45)
[2021-09-12 23:00] VITALS: BP 121/71
[2021-09-13] MEDS: PIPERACILLIN/TAZOBACTAM 3.375 GM in IV NORMAL SALINE 50ML 50 ML IV SCH ×5 (00:01→23:55)
[2021-09-13 03:00] VITALS: BP 131/79
[2021-09-13] MEDS: VANCOMYCIN 1.5 GM in IV NORMAL SALINE 500ML BAG 500 ML IV SCH ×2 (03:13→15:40)
[2021-09-13 04:51] LABS: BASO # 0.1 x10^3/uL (0.0-0.2); BASO % 1 % (0-3); EOS # 0.3 x10^3/uL (0.0-0.7); EOS % 5 % (0-3); HEMATOCRIT 42.3 % (39.0-53.0); HEMOGLOBIN 14.2 g/dL (13.0-17.5); LYMPH # 1.6 x10^3/uL (1.0-4.8); LYMPH % 25 % (24-48); MEAN CORPUSCULAR HEMOGLOBIN 33 pg (25-35); MEAN CORPUSCULAR HGB CONC 34 g/dL (31-37); MEAN CORPUSCULAR VOLUME 98 fL (79-100); MONO # 0.7 x10^3/uL (0.0-1.1); MONO % 11 % (0-9); NEUT # 3.7 x10^3/uL (1.8-7.7); NEUT % 59 % (31-73); PLATELET COUNT 489 x10^3/uL (140-400); RED BLOOD COUNT 4.31 x10^6/uL (4.30-5.70); RED CELL DISTRIBUTION WIDTH 12.2 % (11.5-14.5); WHITE BLOOD COUNT 6.3 x10^3/uL (4.0-11.0)
[2021-09-13 04:59] LABS: CALCIUM 8.7 mg/dL (8.5-10.1); CREATININE 1.1 mg/dL (0.7-1.3); GFR 68.3; POTASSIUM 4.1 mmol/L (3.5-5.1)
[2021-09-13] MEDS: ACETAMINOPHEN 325 MG TABLET. PO SCH ×4 (05:25→23:55)
[2021-09-13 07:00] VITALS: BP 125/79
--- NOTE | 2021-09-13 07:29 | NUR ---
Pain reassessment not completed by this RN for 05. Pain reassessment from previous shift. Refer to EMAR for details.
[2021-09-13] MEDS: INSULIN LISPRO 300 UNITS/3 ML VIAL. SQ SCH ×6 (08:00→17:44)
--- NOTE | 2021-09-13 08:43 | NUR ---
This RN nonadministered SS insulin. Pt not eating breakfast, states he thinks he may be getting surgery today. Scheduled insulin administered per orders. Pt informed that there are no orders in place at this time for surgery. This RN called Dr. Chacon's office to verify. Awaiting call back. Dr. Varela also notified of current situation. Addendum: 09/13/21 at 1024 by MYRNA MATOS RN Surgery not today. Breakfast tray ordered.
[2021-09-13] MEDS: DOCUSATE SODIUM 100 MG CAPSULE. PO SCH (09:00)
[2021-09-13] MEDS: CITALOPRAM 20 MG TABLET. PO SCH (09:38)
[2021-09-13] MEDS: CYANOCOBALAMIN (VITAMIN B-12) 1,000 MCG TABLET. PO SCH (09:39)
[2021-09-13] MEDS: LISINOPRIL 10 MG TABLET PO SCH (09:39)
[2021-09-13] MEDS: LACTOBACILLUS RHAMNOSUS GG 1 CAPSULE. PO SCH ×2 (09:39→22:16)
[2021-09-13] MEDS: GABAPENTIN 100 MG CAPSULE. PO SCH ×3 (09:39→22:16)
[2021-09-13] MEDS: INSULIN GLARGINE SYRINGE. SQ SCH (10:28)
--- NOTE | 2021-09-13 10:38 | NUR ---
SW following. Discussed with RN, pt from home with s/o, room air, ada diet. Pt had surgery on 09/09, plans for more surgery tomorrow to close wound. Pt currently on IV abx. Therapy recommending home. SW will continue to follow.
[2021-09-13 11:00] VITALS: BP 136/71
[2021-09-13] MEDS: VANCOMYCIN PER PHARMACY MC PRN (11:45)
--- NOTE | 2021-09-13 12:54 | PDOC ---
[employer] PROGRESS NOTE Date of Service DOS: DATE: 09/13/21 TIME: 12:53 Chief Complaint Chief Complaint Severe right great toe diabetic infection Diabetes Severe neuropathy Depression Hypertension Hyperlipidemia Insomnia Plan: Continue IV antibiotics Follow recommendations from physical therapy Wound VAC placement pending Reassess in the a.m. Further recommendations based on the clinical course History of Present Illness History of Present Illness 09/09/2021 Patient seen and examined He is scheduled to go to surgery later today (the left greater toe has severe swelling and obvious diabetic foot infection) Discussed with RN Discussed with case management Chart reviewed 09/10/2021 No acute events reported overnight, case discussed with nursing staff patient in no acute distress complaining of diarrhea. Reassurance has been provided. Wound VAC hopefully will be placed either today or tomorrow discussed results of hemoglobin A1c 09/11/2021 Continues to do well. He is now more open to continue with his insulin regimen in order to control his diabetes. Plans for OR early next week were discussed. Reassurance provided no concerns voiced during my encounter no acute events reported overnight 09/12/2021 No acute events reported overnight, case discussed with nursing staff patient in no acute distress no complaints during my visit 09/13 Patient evaluated and examined at bedside. No major complaints was interested in plan of care. From what I can tell most recent podiatry note showing surgical intervention for tomorrow. We will plan on this for now and confirm with them. Continue antibiotics. As needed pain control. Vitals/I&O Vitals/I&O: Vital Signs Date Time Temp Pulse Resp B/P (MAP) Pulse Ox O2 Delivery O2 Flow Rate FiO2 09/13/21 11:00 98.1 71 18 136/71 (92) 99 98.1 09/13/21 08:30 Room Air I & O 09/12/21 09/12/21 09/13/21 15:00 23:00 07:00 Output Total 400 ml Balance -400 ml Physical Exam General: Alert, Oriented X3, Cooperative, No acute distress Heart: Regular rate Lungs: Clear Abdomen: Soft Extremities: Other (The left greater toe has severe infection please see the pictures) Skin: Other (left great toe redness, open wound) Labs Labs: Laboratory Tests Test 09/12/21 17:22 09/12/21 20:25 09/13/21 03:35 09/13/21 08:01 Glucose (Fingerstick) 136 mg/dL (70-99) 176 mg/dL (70-99) 193 mg/dL (70-99) White Blood Count 6.3 x10^3/uL (4.0-11.0) Red Blood Count 4.31 x10^6/uL (4.30-5.70) Hemoglobin 14.2 g/dL (13.0-17.5) Hematocrit 42.3 % (39.0-53.0) Mean Corpuscular Volume 98 fL (79-100) Mean Corpuscular Hemoglobin 33 pg (25-35) Mean Corpuscular Hemoglobin Concent 34 g/dL (31-37) Red Cell Distribution Width 12.2 % (11.5-14.5) Platelet Count 489 x10^3/uL (140-400) Neutrophils (%) (Auto) 59 % (31-73) Lymphocytes (%) (Auto) 25 % (24-48) Monocytes (%) (Auto) 11 % (0-9) Eosinophils (%) (Auto) 5 % (0-3) Basophils (%) (Auto) 1 % (0-3) Neutrophils # (Auto) 3.7 x10^3/uL (1.8-7.7) Lymphocytes # (Auto) 1.6 x10^3/uL (1.0-4.8) Monocytes # (Auto) 0.7 x10^3/uL (0.0-1.1) Eosinophils # (Auto) 0.3 x10^3/uL (0.0-0.7) Basophils # (Auto) 0.1 x10^3/uL (0.0-0.2) Sodium Level 138 mmol/L (136-145) Potassium Level 4.1 mmol/L (3.5-5.1) Chloride Level 105 mmol/L (98-107) Carbon Dioxide Level 23 mmol/L (21-32) Anion Gap 10 (6-14) Blood Urea Nitrogen 15 mg/dL (8-26) Creatinine 1.1 mg/dL (0.7-1.3) Estimated GFR (Cockcroft-Gault) 68.3 Glucose Level 175 mg/dL (70-99) Calcium Level 8.7 mg/dL (8.5-10.1) Test 09/13/21 12:14 Glucose (Fingerstick) 193 mg/dL (70-99) Comment Review of Relevant I have reviewed the following items edilberto (where applicable) has been applied. Justifications for Admission Other Justification STEVE XIE MD Sep 13, 2021 12:53
[2021-09-13 15:00] VITALS: BP 116/81
--- NOTE | 2021-09-13 16:20 | NUR ---
Wound Care Spoke with Dr. Chacon re: leaving vac in place until surgery tomorrow vs. changing dressing today. Dr. Chacon stated to leave vac dressing in place until his surgery tomorrow at 1200. Pt informed of POC.
--- NOTE | 2021-09-13 18:07 | PATHOLOGY ---
[facility] Accession Number: [id number] . 01 Material submitted: . hallux - L HALLUX- R/O OSTEOMYELITIS. Modifiers: left . 01 Clinical history: . INFECTED L GREAT TOE L GREAT TOE AMP . 02 Diagnosis: Left hallux amputation: - Focal ulceration of skin of toe with acute cellulitis/abscess and focal acute osteomyelitis of phalangeal bones. - Cellulitis focally present at the proximal soft tissue amputation margin. . (JPM:mml; 09/13/2021) [facility] 09/13/2021 1512 Local . 02 Electronically signed: . Tha Marks MD, Pathologist NPI- [id number] . 01 Gross description: . Received in formalin labeled "Clayton Leon L hallux rule out osteomyelitis" is a toe disarticulation specimen measuring 7.2 x 5.2 x 4.5 cm. The proximal skin and soft tissue margin is smooth and consistent with a surgical margin and the proximal bone consists of a concave cartilage covered disarticulation. The articular surface displays roughening over 50% of the surface. The distal aspect of the specimen displays a taylor-white, nail measuring 2.1 x 2.1 x 0.5 cm. The medial aspect of the specimen displays an ulcerated taylor-brown lesion measuring 2.7 x 2.5 x 1.2 cm. The dorsal aspect of the specimen displays a hutchinson-green discolored lesion measuring 3.5 x 3.4 x 0.8 cm. The dorsal lesion grossly abuts the skin and soft tissue margin and the lesions are located at least 1.4 cm from the bone disarticulation. The margin is inked entirely black. Boarding Mother sections of the specimen are submitted as follows: A1 ulcerated lesion from medial aspect with closest skin and soft tissue margin A2-A3 lesion from dorsal aspect with closest skin and soft tissue margin A4 perpendicular sections of bone disarticulation (decalcified) A5 bone underlying lesions (decalcified) ([facility]; 09/11/2021) [facility] 09/11/2021 1057 Local . 02 Pathologist provided ICD-10: L97.529, L03.032, M86.172 . 02 CPT . 360949, [id number] Specimen Comment: A courtesy copy of this report has been sent to [phone], [phone] Specimen Comment: [id number], Specimen Comment: Report sent to , DR CHESTER / DR TAYLOR Specimen Comment: A duplicate report has been generated due to demographic updates. Performed at: 01 [facility] [address] [address], [place] [id number] MD Bienvenido Medrano MD Phone: [phone] Performed at: 02 [facility] [address] [place], [place] [id number] MD Tha Marks MD Phone: [phone]
[2021-09-13 19:00] VITALS: BP 135/88
--- NOTE | 2021-09-13 20:05 | PDOC ---
PROGRESS NOTES Date of Service DATE: 09/13/21 TIME: 20:04 Subjective Subjective Patient was seen resting comfortably in bed with VAC functioning at 125 mmHg. Patient has been tolerating the IV antibiotics well without any constitutional symptoms. He has been working with PT and has been progressing well. Objective Objective Vital Signs Date Time Temp Pulse Resp B/P (MAP) Pulse Ox O2 Delivery O2 Flow Rate FiO2 09/13/21 15:00 98.0 82 20 116/81 (93) 96 98.0 09/13/21 08:30 Room Air 09/12/21 03:00 6.0 Intake and Output 09/13/21 07:00 Output Total 400 ml Balance -400 ml Drainage Total 400 ml # Voids 8 # Bowel Movements 7 Physical Exam Physical Exam General: Pleasant without apparent distress, AOx3 Left lower extremity focused Dermatology: -VAC is functioning at 125 mmHg -Dressings kept clean dry and intact without any strikethrough Vascular: -Foot is warm to touch with CFT less than 3 seconds x 5 Neurology: -Light touch sensation diminished to the level of digits 2 through 5 MSK: -[-] TTP at the surgical site -Able to move digits 2 through 5 -Muscle strength 5 out of 5 across ankle joint -Calf is soft and nontender Plan Plan of Care -Current antibiotic: Vancomycin and Zosyn -Deep tissue culture 09/09: Gram-positive cocci after washout versus Vagococcus before washout -Blood culture 09/08: Neg -Trend WBC daily -Keep the dressing clean, dry and intact -Strict nonweightbearing to left lower extremity -PT eval and treat -Intra-Op pathology pending Dispo: N.p.o. after midnight in preparation for partial first metatarsal amputation and delayed wound closure. Clinically, the infection was limited to soft tissue. Outpatient 2-week oral antibiotics may be adequate unless the pathology report returns positive for osteomyelitis Comment Review of Relevant I have reviewed the following items edilberto (where applicable) has been applied. Labs Laboratory Tests Test 09/12/21 06:15 09/12/21 07:43 09/12/21 11:45 09/12/21 17:22 White Blood Count 6.4 x10^3/uL (4.0-11.0) Red Blood Count 4.32 x10^6/uL (4.30-5.70) Hemoglobin 14.7 g/dL (13.0-17.5) Hematocrit 42.1 % (39.0-53.0) Mean Corpuscular Volume 98 fL (79-100) Mean Corpuscular Hemoglobin 34 pg (25-35) Mean Corpuscular Hemoglobin Concent 35 g/dL (31-37) Red Cell Distribution Width 12.0 % (11.5-14.5) Platelet Count 493 x10^3/uL (140-400) Neutrophils (%) (Auto) 64 % (31-73) Lymphocytes (%) (Auto) 21 % (24-48) Monocytes (%) (Auto) 11 % (0-9) Eosinophils (%) (Auto) 4 % (0-3) Basophils (%) (Auto) 1 % (0-3) Neutrophils # (Auto) 4.1 x10^3/uL (1.8-7.7) Lymphocytes # (Auto) 1.3 x10^3/uL (1.0-4.8) Monocytes # (Auto) 0.7 x10^3/uL (0.0-1.1) Eosinophils # (Auto) 0.2 x10^3/uL (0.0-0.7) Basophils # (Auto) 0.0 x10^3/uL (0.0-0.2) Sodium Level 141 mmol/L (136-145) Potassium Level 4.4 mmol/L (3.5-5.1) Chloride Level 105 mmol/L (98-107) Carbon Dioxide Level 25 mmol/L (21-32) Anion Gap 11 (6-14) Blood Urea Nitrogen 16 mg/dL (8-26) Creatinine 1.0 mg/dL (0.7-1.3) Estimated GFR (Cockcroft-Gault) 76.2 Glucose Level 200 mg/dL (70-99) Calcium Level 9.0 mg/dL (8.5-10.1) Glucose (Fingerstick) 204 mg/dL (70-99) 137 mg/dL (70-99) 136 mg/dL (70-99) Test 09/12/21 20:25 09/13/21 03:35 09/13/21 08:01 09/13/21 12:14 Glucose (Fingerstick) 176 mg/dL (70-99) 193 mg/dL (70-99) 193 mg/dL (70-99) White Blood Count 6.3 x10^3/uL (4.0-11.0) Red Blood Count 4.31 x10^6/uL (4.30-5.70) Hemoglobin 14.2 g/dL (13.0-17.5) Hematocrit 42.3 % (39.0-53.0) Mean Corpuscular Volume 98 fL (79-100) Mean Corpuscular Hemoglobin 33 pg (25-35) Mean Corpuscular Hemoglobin Concent 34 g/dL (31-37) Red Cell Distribution Width 12.2 % (11.5-14.5) Platelet Count 489 x10^3/uL (140-400) Neutrophils (%) (Auto) 59 % (31-73) Lymphocytes (%) (Auto) 25 % (24-48) Monocytes (%) (Auto) 11 % (0-9) Eosinophils (%) (Auto) 5 % (0-3) Basophils (%) (Auto) 1 % (0-3) Neutrophils # (Auto) 3.7 x10^3/uL (1.8-7.7) Lymphocytes # (Auto) 1.6 x10^3/uL (1.0-4.8) Monocytes # (Auto) 0.7 x10^3/uL (0.0-1.1) Eosinophils # (Auto) 0.3 x10^3/uL (0.0-0.7) Basophils # (Auto) 0.1 x10^3/uL (0.0-0.2) Sodium Level 138 mmol/L (136-145) Potassium Level 4.1 mmol/L (3.5-5.1) Chloride Level 105 mmol/L (98-107) Carbon Dioxide Level 23 mmol/L (21-32) Anion Gap 10 (6-14) Blood Urea Nitrogen 15 mg/dL (8-26) Creatinine 1.1 mg/dL (0.7-1.3) Estimated GFR (Cockcroft-Gault) 68.3 Glucose Level 175 mg/dL (70-99) Calcium Level 8.7 mg/dL (8.5-10.1) Test 09/13/21 17:18 Glucose (Fingerstick) 147 mg/dL (70-99) Laboratory Tests Test 09/12/21 20:25 09/13/21 03:35 09/13/21 08:01 09/13/21 12:14 Glucose (Fingerstick) 176 mg/dL (70-99) 193 mg/dL (70-99) 193 mg/dL (70-99) White Blood Count 6.3 x10^3/uL (4.0-11.0) Red Blood Count 4.31 x10^6/uL (4.30-5.70) Hemoglobin 14.2 g/dL (13.0-17.5) Hematocrit 42.3 % (39.0-53.0) Mean Corpuscular Volume 98 fL (79-100) Mean Corpuscular Hemoglobin 33 pg (25-35) Mean Corpuscular Hemoglobin Concent 34 g/dL (31-37) Red Cell Distribution Width 12.2 % (11.5-14.5) Platelet Count 489 x10^3/uL (140-400) Neutrophils (%) (Auto) 59 % (31-73) Lymphocytes (%) (Auto) 25 % (24-48) Monocytes (%) (Auto) 11 % (0-9) Eosinophils (%) (Auto) 5 % (0-3) Basophils (%) (Auto) 1 % (0-3) Neutrophils # (Auto) 3.7 x10^3/uL (1.8-7.7) Lymphocytes # (Auto) 1.6 x10^3/uL (1.0-4.8) Monocytes # (Auto) 0.7 x10^3/uL (0.0-1.1) Eosinophils # (Auto) 0.3 x10^3/uL (0.0-0.7) Basophils # (Auto) 0.1 x10^3/uL (0.0-0.2) Sodium Level 138 mmol/L (136-145) Potassium Level 4.1 mmol/L (3.5-5.1) Chloride Level 105 mmol/L (98-107) Carbon Dioxide Level 23 mmol/L (21-32) Anion Gap 10 (6-14) Blood Urea Nitrogen 15 mg/dL (8-26) Creatinine 1.1 mg/dL (0.7-1.3) Estimated GFR (Cockcroft-Gault) 68.3 Glucose Level 175 mg/dL (70-99) Calcium Level 8.7 mg/dL (8.5-10.1) Test 09/13/21 17:18 Glucose (Fingerstick) 147 mg/dL (70-99) Microbiology 09/09/21 Gram Stain - Final, Resulted 09/09/21 Aerobic and Anaerobic Culture - Preliminary, Resulted 09/08/21 Blood Culture - Final, Complete NO GROWTH AFTER 5 DAYS Medications Current Medications Vancomycin HCl (Vanco Per Pharmacy) 1 each PRN DAILY PRN MC SEE COMMENTS Last administered on 09/13/21at 11:45; Start 09/08/21 at 12:30 Piperacillin Sod/ Tazobactam Sod (Zosyn Per Pharmacy) 1 each PRN DAILY PRN MC SEE COMMENTS; Start 09/08/21 at 12:30 Acetaminophen (Tylenol) 650 mg PRN Q6HRS PRN PO MILD PAIN / TEMP > 100.3'F; Start 09/08/21 at 12:30; Stop 09/09/21 at 18:00; Status DC Vancomycin HCl 2 gm/Sodium Chloride 500 ml @ 250 mls/hr 1X ONCE IV Last administered on 09/08/21at 15:04; Start 09/08/21 at 12:45; Stop 09/08/21 at 14:49; Status DC Piperacillin Sod/ Tazobactam Sod 3.375 gm/Sodium Chloride 50 ml @ 100 mls/hr 1X ONCE IV ; Start 09/08/21 at 13:15; Stop 09/08/21 at 13:44; Status Cancel Influenza Virus Vaccine Quadrival (Flulaval Quad [id number] Syringe) 0.5 ml ONCE ONCE VAX IM Last administered on 09/08/21at 16:30; Start 09/08/21 at 13:15; Stop 09/08/21 at 13:18; Status DC Piperacillin Sod/ Tazobactam Sod 3.375 gm/Sodium Chloride 50 ml @ 100 mls/hr Q6HRS IV Last administered on 09/13/21at 17:43; Start 09/08/21 at 18:00 Lisinopril (Prinivil) 10 mg DAILY PO Last administered on 09/13/21at 09:39; Start 09/09/21 at 09:00 Citalopram Hydrobromide (CeleXA) 40 mg DAILY PO Last administered on 09/13/21 09:38; Start 09/09/21 at 09:00 Cyanocobalamin (Vitamin B-12) 2,500 mcg DAILY PO Last administered on 09:39; Start 09/09/21 at 09:00 Glipizide (Glucotrol) 10 mg BIDBFRMEAL PO Last administered on 09/12/21at 08:20; Start 09/08/21 at 16:30; Stop 09/12/21 at 08:46; Status DC Atorvastatin Calcium (Lipitor) 80 mg QHS PO Last administered on 09/12/21at 21:00; Start 09/08/21 at 21:00 Insulin Glargine (Lantus Syringe) 10 unit QHS SQ Last administered on 09/11/21at 23:12; Start 09/08/21 at 21:00; Stop 09/12/21 at 08:46; Status DC Insulin Human Lispro (HumaLOG) 8 units TIDAC SQ Last administered on 09/13/21at 17:44; Start 09/08/21 at 16:30 Insulin Human Lispro (HumaLOG) 0-7 UNITS TIDWMEALS SQ Last administered on 09/13/21at 12:47; Start 09/08/21 at 17:00 Dextrose (Dextrose 50%-Water Syringe) 12.5 gm PRN Q15MIN PRN IV SEE COMMENTS; Start 09/08/21 at 14:45 Docusate Sodium (Colace) 100 mg DAILY PO Last administered on 09/11/21 09:00; Start 09/09/21 at 09:00 Zolpidem Tartrate (Ambien) 5 mg PRN QHS PRN PO INSOMNIA Last administered on 09/12/21at 22:45; Start 09/08/21 at 14:45 Vancomycin HCl 1.5 gm/Sodium Chloride 500 ml @ 250 mls/hr Q12H IV Last administered on 09/13/21at 15:40; Start 09/09/21 at 03:00 Vancomycin HCl (Vancomycin Trough Level) 1 each 1X ONCE MC Last administered on 09/10/21 02:30; Start 09/10/21 at 02:30; Stop 09/10/21 at 02:31; Status DC Bupivacaine HCl (Sensorcaine Mpf 0.25%) 30 ml STK-MED ONCE .ROUTE Last administered on 09/09/21at 17:22; Start 09/09/21 at 14:00; Stop 09/09/21 at 14:00; Status DC Vancomycin HCl (Vancomycin) 1 gm STK-MED ONCE .ROUTE ; Start 09/09/21 at 14:00; Stop 09/09/21 at 14:00; Status DC Propofol (Diprivan) 200 mg STK-MED ONCE IV ; Start 09/09/21 at 14:18; Stop 09/09/21 at 14:19; Status DC Lidocaine HCl (Lidocaine Pf 2% Vial) 5 ml STK-MED ONCE .ROUTE ; Start 09/09/21 at 14:18; Stop 09/09/21 at 14:19; Status DC Dexamethasone Sodium Phosphate (Decadron) 4 mg STK-MED ONCE .ROUTE ; Start 09/09/21 at 14:18; Stop 09/09/21 at 14:19; Status DC Ondansetron HCl (Zofran) 4 mg STK-MED ONCE .ROUTE ; Start 09/09/21 at 14:18; Stop 09/09/21 at 14:19; Status DC Insulin Human Lispro (HumaLOG VIAL for OP,RR ONLY) 0-10 units PRN Q1HR PRN SQ PER PROTOCOL Last administered on 09/09/21at 17:09; Start 09/09/21 at 16:00; Stop 09/10/21 at 15:59; Status DC Fentanyl Citrate (Fentanyl 2ml Vial) 100 mcg STK-MED ONCE .ROUTE ; Start 09/09/21 at 16:09; Stop 09/09/21 at 16:09; Status DC Sevoflurane (Ultane) 30 ml STK-MED ONCE IH ; Start 09/09/21 at 16:27; Stop 09/09/21 at 16:28; Status DC Fentanyl Citrate (Fentanyl 2ml Vial) 25 mcg PRN Q5MIN PRN IVP MILD PAIN 1-3; Start 09/09/21 at 17:00; Stop 09/10/21 at 16:59; Status DC Fentanyl Citrate (Fentanyl 2ml Vial) 50 mcg PRN Q5MIN PRN IVP MODERATE PAIN 4- 6; Start 09/09/21 at 17:00; Stop 09/10/21 at 16:59; Status DC Morphine Sulfate (Morphine Sulfate) 1 mg PRN Q10MIN PRN IVP SEVERE PAIN 7-10; Start 09/09/21 at 17:00; Stop 09/10/21 at 16:59; Status DC Ringer's Solution 1,000 ml @ 30 mls/hr Q24H IV Last administered on 09/09/21at 16:00; Start 09/09/21 at 17:00; Stop 09/10/21 at 04:59; Status DC Hydromorphone HCl (Dilaudid) 0.5 mg PRN Q10MIN PRN IVP SEVERE PAIN 7-10, 2nd CHOICE; Start 09/09/21 at 17:00; Stop 09/10/21 at 16:59; Status DC Prochlorperazine Edisylate (Compazine) 5 mg PACU PRN PRN IVP NAUSEA, MRX1; Start 09/09/21 at 17:00; Stop 09/10/21 at 16:59; Status DC Acetaminophen (Tylenol) 650 mg Q6HRS PO Last administered on 09/13/21at 05:25; Start 09/09/21 at 18:00 Tramadol HCl (Ultram) 50 mg PRN Q6HRS PRN PO MILD-MODERATE PAIN; Start 09/09/21 at 18:00 Acetaminophen/ Hydrocodone Bitart (Lortab 5/325) 1 tab PRN Q6HRS PRN PO SEVERE PAIN; Start 09/09/21 at 18:00 Gabapentin (Neurontin) 100 mg TID PO Last administered on 09/13/21at 14:26; Start 09/09/21 at 21:00 Lactobacillus Rhamnosus (Culturelle) 1 cap BID PO Last administered on 08/30 03/19at 09:39; Start 09/10/21 at 21:00 Lactobacillus Rhamnosus (Culturelle) 1 cap BID PO ; Start 09/10/21 at 21:00; Status UNV Insulin Glargine (Lantus Syringe) 14 unit DAILY SQ Last administered on 09/13/21at 10:28; Start 09/12/21 at 09:00 Fentanyl Citrate (Fentanyl 2ml Vial) 25 mcg PRN Q5MIN PRN IVP MILD PAIN 1-3; Start 09/14/21 at 06:00; Stop 09/15/21 at 05:59 Fentanyl Citrate (Fentanyl 2ml Vial) 50 mcg PRN Q5MIN PRN IVP MODERATE PAIN 4- 6; Start 09/14/21 at 06:00; Stop 09/15/21 at 05:59 Morphine Sulfate (Morphine Sulfate) 1 mg PRN Q10MIN PRN IVP SEVERE PAIN 7-10; Start 09/14/21 at 06:00; Stop 09/15/21 at 05:59 Ringer's Solution 1,000 ml @ 30 mls/hr Q24H IV ; Start 09/14/21 at 06:00; Stop 09/14/21 at 17:59 Hydromorphone HCl (Dilaudid) 0.5 mg PRN Q10MIN PRN IVP SEVERE PAIN 7-10, 2nd CHOICE; Start 09/14/21 at 06:00; Stop 09/15/21 at 05:59 Prochlorperazine Edisylate (Compazine) 5 mg PACU PRN PRN IVP NAUSEA, MRX1; Start 09/14/21 at 06:00; Stop 09/15/21 at 05:59 Active Scripts Active Reported Vitamin B12 (Cyanocobalamin (Vitamin B-12)) 2,500 Mcg Tablet 1 Tab PO DAILY 30 Days Lisinopril 10 Mg Tablet 1 Tab PO DAILY Crestor (Rosuvastatin Calcium) 40 Mg Tablet 0.5 Tab PO DAILY Citalopram Hbr (Citalopram Hydrobromide) 40 Mg Tablet 1 Tab PO DAILY Glipizide 10 Mg Tablet 1 Tab PO BID Metformin Hcl 1,000 Mg Tablet 1,000 Mg PO BIDWMEALS Vitals/I & O Vital Sign - Last 24 Hours 09/12/21 09/13/21 09/13/21 09/13/21 23:00 03:00 07:00 08:30 Temp 97.8 98.3 97.8 97.8 98.3 97.8 Pulse 76 72 69 Resp 18 18 18 B/P (MAP) 121/71 (88) 131/79 (96) 125/79 (94) Pulse Ox 98 99 98 O2 Delivery Room Air Room Air Room Air 09/13/21 09/13/21 09/13/21 09:39 11:00 15:00 Temp 98.1 98.0 98.1 98.0 Pulse 69 71 82 Resp 18 20 B/P (MAP) 125/79 136/71 (92) 116/81 (93) Pulse Ox 99 96 Intake and Output 09/12/21 09/12/21 09/13/21 15:00 23:00 07:00 Output Total 400 ml Balance -400 ml Justifications for Admission Other Justification ASHLEY LEDEZMA DPM Sep 13, 2021 20:05
[2021-09-13] MEDS: ZOLPIDEM 5 MG TABLET. PO PRN (22:16)
[2021-09-13] MEDS: ATORVASTATIN CALCIUM 40 MG TABLET. PO SCH (22:16)
[2021-09-13 23:12] VITALS: BP 126/68
[2021-09-14] MEDS: VANCOMYCIN 1.5 GM in IV NORMAL SALINE 500ML BAG 500 ML IV SCH ×2 (02:41→15:00)
[2021-09-14] MEDS: ACETAMINOPHEN 325 MG TABLET. PO SCH ×3 (02:58→17:11)
[2021-09-14 03:00] VITALS: BP 129/65
[2021-09-14 05:03] LABS: BASO # 0.1 x10^3/uL (0.0-0.2); BASO % 1 % (0-3); EOS # 0.2 x10^3/uL (0.0-0.7); EOS % 3 % (0-3); HEMATOCRIT 40.5 % (39.0-53.0); HEMOGLOBIN 14.2 g/dL (13.0-17.5); LYMPH # 1.7 x10^3/uL (1.0-4.8); LYMPH % 22 % (24-48); MEAN CORPUSCULAR HEMOGLOBIN 34 pg (25-35); MEAN CORPUSCULAR HGB CONC 35 g/dL (31-37); MEAN CORPUSCULAR VOLUME 97 fL (79-100); MONO # 0.7 x10^3/uL (0.0-1.1); MONO % 10 % (0-9); NEUT # 4.8 x10^3/uL (1.8-7.7); NEUT % 64 % (31-73); PLATELET COUNT 517 x10^3/uL (140-400); RED BLOOD COUNT 4.18 x10^6/uL (4.30-5.70); RED CELL DISTRIBUTION WIDTH 11.9 % (11.5-14.5); WHITE BLOOD COUNT 7.5 x10^3/uL (4.0-11.0)
[2021-09-14 05:24] LABS: CREATININE 1.1 mg/dL (0.7-1.3); GFR 68.3; POTASSIUM 4.1 mmol/L (3.5-5.1)
[2021-09-14] MEDS: PIPERACILLIN/TAZOBACTAM 3.375 GM in IV NORMAL SALINE 50ML 50 ML IV SCH ×3 (05:45→17:13)
[2021-09-14] MEDS ORDERED: HYDROmorphone 2 MG/ML VIAL IVP PRN ×2 (06:00→13:45)
[2021-09-14] MEDS ORDERED: fentaNYL PF VIAL 100 MCG/2 ML VIAL IVP PRN ×3 (06:00→13:45)
[2021-09-14] MEDS ORDERED: PROCHLORPERAZINE 10 MG/2 ML VIAL. IVP PRN (06:00)
[2021-09-14] MEDS ORDERED: MORPHINE SULFATE 2 MG/ML INJ. IVP PRN ×2 (06:00→13:45)
[2021-09-14] MEDS ORDERED: IV RINGERS,LACTATED 1000ML 1,000 ML IV SCH (06:00)
[2021-09-14 07:00] VITALS: BP 119/85
[2021-09-14] MEDS: INSULIN LISPRO 300 UNITS/3 ML VIAL. SQ SCH ×6 (07:30→17:22)
[2021-09-14] MEDS: GABAPENTIN 100 MG CAPSULE. PO SCH ×3 (09:00→21:00)
[2021-09-14] MEDS: INSULIN GLARGINE SYRINGE. SQ SCH (10:16)
[2021-09-14] MEDS ORDERED: BUPIVACAINE MPF 0.25% 30 ML VIAL. ONE (10:26)
[2021-09-14] MEDS ORDERED: VANCOMYCIN 1 GM VIAL. ONE (10:27)
--- NOTE | 2021-09-14 10:35 | NUR ---
SW following. Discussed with RN, pt going for surgery today to close wound. RN advised no SW needs at this time. SW will continue to follow.
[2021-09-14] MEDS ORDERED: ONDANSETRON PF 4 MG/2 ML VIAL. ONE (11:21)
[2021-09-14] MEDS ORDERED: LIDOCAINE 2% PF 5 ML VIAL. ONE (11:21)
[2021-09-14] MEDS ORDERED: PROPOFOL 10 MG/ML (20ML) VIAL. IV ONE (11:21)
[2021-09-14] MEDS ORDERED: MIDAZOLAM HCL/PF 2 MG/2 ML VIAL. ONE (11:24)
[2021-09-14] MEDS ORDERED: fentaNYL PF VIAL 100 MCG/2 ML VIAL ONE ×2 (11:24→13:33)
--- NOTE | 2021-09-14 13:09 | PDOC4 ---
OPERATIVE NOTE Date: Date: Sep 14, 2021 Pre-Op Diagnosis: Prior left foot incision drainage and first MTPJ disarticulation in the setting of deep tissue abscess overlying the hallux Post-Op Diagnosis: Same as above Procedure Performed: Left partial first ray amputation, incision and drainage with delayed wound closure Surgeon: Ashley Ledezma DPM Anesthesia Type: General Blood Loss: 5 cc Specimans Obtained: None Findings: Healthy bleeding dorsal and plantar skin flaps. The first metatarsal head articular cartilage is intact without any surrounding or proximal tunneling, proximal tracking or purulence. Loaded forefoot weightbearing was insignificant for forefoot varus or equinovarus deformity Complications: None Operative Note: Patient was brought into the operating room and placed on the operating table in a supine position. A timeout was performed to confirm patient's identity, location of surgery and procedure. After induction of general anesthesia, a pneumatic high ankle tourniquet was placed with pressure set 250 mmHg. The left lower extremity was then scrubbed, prepped and draped in the usual sterile manner. The left lower extremity was elevated for gravity exsanguination and the tourniquet was inflated to 250 mmHg. Then the attention was directed to the left distal ray. Because the dorsal and plantar skin flaps have retracted the coverage with soft tissue flap would be under tremendous amount of tension. Then the decision was made to extend the medial fishmouth incision approximately by 1 cm followed by soft tissue elevation of the first metatarsal head both dorsally and plantarly with a combination of sharp and blunt dissections. After the metatarsal head was exposed and visualized, sagittal saw was used to resect out the metatarsal head angled in such fashion that it follows anatomical parabola. The plantar sesamoids were also excised without compromising the thick plantar flap. At this time, the skin flaps were noted adequate and able to close the first metatarsal stump adequately without tension. 2 L of normal saline was used to irrigate the wound. Afterwards, wound bed inspection was insignificant for purulence, necrotic changes, proximal tracking. The first metatarsal head was healthy and bleeding. No further wound culture or pathology were collected as last intraoperative wound swab culture was negative. Afterwards, the wound was closed in layers with 3-0 Vicryl and 3-0 and 4-0 nylon. Simulated for full weightbearing was insignificant for equinovarus deformity right indication for Achilles tendon lengthening. Tourniquet was deflated after 48 minutes, adequate digital perfusion was noted. The surgical site was dressed with Betadine soaked Adaptic, 4 x 4 gauze. Left lower extremity was immobilized in a well-padded [place] compression splint with ankle held in near 90 degrees. Patient tolerated procedure anesthesia well with vital signs stable and neurovascular status intact. Patient was then transferred to PACU for continued recovery. Pending left foot 3 view x-ray PACU. ASHLEY LEDEZMA DPM Sep 14, 2021 13:09
[2021-09-14] MEDS: fentaNYL PF VIAL 100 MCG/2 ML VIAL IVP PRN ×3 (13:40→16:19)
[2021-09-14] MEDS: VANCOMYCIN PER PHARMACY MC PRN (13:45)
--- NOTE | 2021-09-14 13:59 | RAD ---
EXAM: Left foot, 3 views. HISTORY: Postoperative evaluation. COMPARISON: 09/09/2021 FINDINGS: 3 views of the left foot are obtained. The great toe is surgically absent. The distal aspec t of the first metatarsal is also surgically absent. There is overlying bandage material. No foreign body is seen. IMPRESSION: Left great toe and distal first metatarsal amputation. Evaluation of bony detail is limit ed due to bandage material. Electronically signed by: Lilia Castañeda MD (09/14/2021 1:57 PM) [id number]
--- NOTE | 2021-09-14 14:02 | PDOC ---
[facility] PROGRESS NOTE Date of Service DOS: DATE: 09/14/21 TIME: 14:02 Chief Complaint Chief Complaint Severe right great toe diabetic infection Diabetes Severe neuropathy Depression Hypertension Hyperlipidemia Insomnia Plan: Continue IV antibiotics Follow recommendations from physical therapy Wound VAC placement pending Reassess in the a.m. Further recommendations based on the clinical course History of Present Illness History of Present Illness 09/09/2021 Patient seen and examined He is scheduled to go to surgery later today (the left greater toe has severe swelling and obvious diabetic foot infection) Discussed with RN Discussed with case management Chart reviewed 09/10/2021 No acute events reported overnight, case discussed with nursing staff patient in no acute distress complaining of diarrhea. Reassurance has been provided. Wound VAC hopefully will be placed either today or tomorrow discussed results of hemoglobin A1c 09/11/2021 Continues to do well. He is now more open to continue with his insulin regimen in order to control his diabetes. Plans for OR early next week were discussed. Reassurance provided no concerns voiced during my encounter no acute events reported overnight 09/12/2021 No acute events reported overnight, case discussed with nursing staff patient in no acute distress no complaints during my visit 09/13 Patient evaluated and examined at bedside. No major complaints was interested in plan of care. From what I can tell most recent podiatry note showing surgical intervention for tomorrow. We will plan on this for now and confirm with them. Continue antibiotics. As needed pain control. 09/14 Patient evaluated and examined at bedside. He is going for surgery today. Continue antibiotics. No complaints prior to surgery. Will follow up with pat ieoctavia after surgery complete Vitals/I&O Vitals/I&O: Vital Signs Date Time Temp Pulse Resp B/P (MAP) Pulse Ox O2 Delivery O2 Flow Rate FiO2 09/14/21 13:47 Room Air 09/14/21 13:40 66 16 139/79 94 09/14/21 13:25 6.0 09/14/21 13:10 97.6 97.6 I & O 09/13/21 09/13/21 09/14/21 15:00 23:00 07:00 Intake Total 370 ml 1040 ml 400 ml Balance 370 ml 1040 ml 400 ml Physical Exam General: Alert, Oriented X3, Cooperative, No acute distress Heart: Regular rate Lungs: Clear Abdomen: Soft Extremities: Other (The left greater toe has severe infection please see the pictures) Skin: Other (left great toe redness, open wound) Labs Labs: Laboratory Tests Test 09/13/21 17:18 09/13/21 20:34 09/14/21 03:30 09/14/21 08:22 Glucose (Fingerstick) 147 mg/dL (70-99) 243 mg/dL (70-99) 187 mg/dL (70-99) White Blood Count 7.5 x10^3/uL (4.0-11.0) Red Blood Count 4.18 x10^6/uL (4.30-5.70) Hemoglobin 14.2 g/dL (13.0-17.5) Hematocrit 40.5 % (39.0-53.0) Mean Corpuscular Volume 97 fL (79-100) Mean Corpuscular Hemoglobin 34 pg (25-35) Mean Corpuscular Hemoglobin Concent 35 g/dL (31-37) Red Cell Distribution Width 11.9 % (11.5-14.5) Platelet Count 517 x10^3/uL (140-400) Neutrophils (%) (Auto) 64 % (31-73) Lymphocytes (%) (Auto) 22 % (24-48) Monocytes (%) (Auto) 10 % (0-9) Eosinophils (%) (Auto) 3 % (0-3) Basophils (%) (Auto) 1 % (0-3) Neutrophils # (Auto) 4.8 x10^3/uL (1.8-7.7) Lymphocytes # (Auto) 1.7 x10^3/uL (1.0-4.8) Monocytes # (Auto) 0.7 x10^3/uL (0.0-1.1) Eosinophils # (Auto) 0.2 x10^3/uL (0.0-0.7) Basophils # (Auto) 0.1 x10^3/uL (0.0-0.2) Sodium Level 139 mmol/L (136-145) Potassium Level 4.1 mmol/L (3.5-5.1) Chloride Level 106 mmol/L (98-107) Carbon Dioxide Level 23 mmol/L (21-32) Anion Gap 10 (6-14) Blood Urea Nitrogen 18 mg/dL (8-26) Creatinine 1.1 mg/dL (0.7-1.3) Estimated GFR (Cockcroft-Gault) 68.3 Glucose Level 160 mg/dL (70-99) Calcium Level 9.0 mg/dL (8.5-10.1) Test 09/14/21 11:15 09/14/21 13:25 Glucose (Fingerstick) 172 mg/dL (70-99) 133 mg/dL (70-99) Comment Review of Relevant I have reviewed the following items edilberto (where applicable) has been applied. Medications: Current Medications Medications (Trade) Dose Ordered Sig/Jarret Route PRN Reason Start Time Stop Time Status Last Admin Dose Admin Ringer's Solution 1,000 ml @ 30 mls/hr Q24H IV 09/14/21 06:00 09/14/21 17:59 09/14/21 11:14 Fentanyl Citrate (Fentanyl 2ml Vial) 50 mcg PRN Q5MIN PRN IVP MODERATE PAIN 4-6 09/14/21 13:45 09/14/21 19:00 09/14/21 13:40 Justifications for Admission Other Justification STEVE XIE MD Sep 14, 2021 14:02
[2021-09-14 15:00] VITALS: BP 148/85
[2021-09-14] MEDS: CYANOCOBALAMIN (VITAMIN B-12) 1,000 MCG TABLET. PO SCH (16:27)
[2021-09-14] MEDS: LACTOBACILLUS RHAMNOSUS GG 1 CAPSULE. PO SCH ×2 (16:27→21:00)
[2021-09-14] MEDS: CITALOPRAM 20 MG TABLET. PO SCH (16:28)
[2021-09-14] MEDS: LISINOPRIL 10 MG TABLET PO SCH (16:28)
[2021-09-14] MEDS: DOCUSATE SODIUM 100 MG CAPSULE. PO SCH (16:28)
[2021-09-14 19:48] VITALS: BP 137/71
[2021-09-14] MEDS: ATORVASTATIN CALCIUM 40 MG TABLET. PO SCH (21:00)
[2021-09-14] MEDS: HYDROcodone/APAP 5/325MG 1 TAB TABLET PO PRN (21:30)
[2021-09-14] MEDS: traMADol 50 MG TABLET PO PRN (21:30)
[2021-09-14 23:23] VITALS: BP 123/70
[2021-09-15] MEDS: PIPERACILLIN/TAZOBACTAM 3.375 GM in IV NORMAL SALINE 50ML 50 ML IV SCH ×4 (00:15→17:47)
[2021-09-15 03:13] VITALS: BP 103/60
[2021-09-15] MEDS: VANCOMYCIN 1.5 GM in IV NORMAL SALINE 500ML BAG 500 ML IV SCH ×2 (03:44→15:09)
[2021-09-15] MEDS: ACETAMINOPHEN 325 MG TABLET. PO SCH ×4 (05:55→18:00)
[2021-09-15] MEDS: HYDROcodone/APAP 5/325MG 1 TAB TABLET PO PRN ×2 (05:57→21:27)
[2021-09-15] MEDS: traMADol 50 MG TABLET PO PRN ×2 (05:57→21:27)
[2021-09-15 06:51] LABS: BASO % 1 % (0-3); EOS # 0.1 x10^3/uL (0.0-0.7); EOS % 2 % (0-3); HEMATOCRIT 40.7 % (39.0-53.0); HEMOGLOBIN 13.8 g/dL (13.0-17.5); LYMPH # 1.4 x10^3/uL (1.0-4.8); LYMPH % 17 % (24-48); MEAN CORPUSCULAR HEMOGLOBIN 33 pg (25-35); MEAN CORPUSCULAR HGB CONC 34 g/dL (31-37); MEAN CORPUSCULAR VOLUME 97 fL (79-100); MONO % 12 % (0-9); NEUT # 5.8 x10^3/uL (1.8-7.7); NEUT % 69 % (31-73); PLATELET COUNT 497 x10^3/uL (140-400); RED BLOOD COUNT 4.21 x10^6/uL (4.30-5.70); WHITE BLOOD COUNT 8.3 x10^3/uL (4.0-11.0)
[2021-09-15 06:52] LABS: CALCIUM 8.5 mg/dL (8.5-10.1); CREATININE 1.3 mg/dL (0.7-1.3); GFR 56.3; POTASSIUM 3.9 mmol/L (3.5-5.1)
[2021-09-15 07:00] VITALS: BP 109/60
[2021-09-15] MEDS: CYANOCOBALAMIN (VITAMIN B-12) 1,000 MCG TABLET. PO SCH (08:46)
[2021-09-15] MEDS: CITALOPRAM 20 MG TABLET. PO SCH (08:47)
[2021-09-15] MEDS: LACTOBACILLUS RHAMNOSUS GG 1 CAPSULE. PO SCH ×2 (08:47→21:25)
[2021-09-15] MEDS: DOCUSATE SODIUM 100 MG CAPSULE. PO SCH (08:47)
[2021-09-15] MEDS: GABAPENTIN 100 MG CAPSULE. PO SCH ×3 (08:47→21:25)
[2021-09-15] MEDS: LISINOPRIL 10 MG TABLET PO SCH ×2 (08:52→14:34)
[2021-09-15] MEDS: INSULIN LISPRO 300 UNITS/3 ML VIAL. SQ SCH ×6 (08:58→17:52)
[2021-09-15] MEDS: INSULIN GLARGINE SYRINGE. SQ SCH (09:24)
[2021-09-15 11:00] VITALS: BP 120/71
--- NOTE | 2021-09-15 11:03 | PDOC ---
[employer] PROGRESS NOTE Date of Service DOS: DATE: 09/15/21 TIME: 11:01 Chief Complaint Chief Complaint Severe right great toe diabetic infection Diabetes Severe neuropathy Depression Hypertension Hyperlipidemia Insomnia Plan: Continue IV antibiotics Follow recommendations from physical therapy Consult infectious disease as patient's pathology does show osteomyelitis Further recommendations based on the clinical course History of Present Illness History of Present Illness 09/09/2021 Patient seen and examined He is scheduled to go to surgery later today (the left greater toe has severe swelling and obvious diabetic foot infection) Discussed with RN Discussed with case management Chart reviewed 09/10/2021 No acute events reported overnight, case discussed with nursing staff patient in no acute distress complaining of diarrhea. Reassurance has been provided. Wound VAC hopefully will be placed either today or tomorrow discussed results of hemoglobin A1c 09/11/2021 Continues to do well. He is now more open to continue with his insulin regimen in order to control his diabetes. Plans for OR early next week were discussed. Reassurance provided no concerns voiced during my encounter no acute events reported overnight 09/12/2021 No acute events reported overnight, case discussed with nursing staff patient in no acute distress no complaints during my visit 09/13 Patient evaluated and examined at bedside. No major complaints was interested in plan of care. From what I can tell most recent podiatry note showing surgical intervention for tomorrow. We will plan on this for now and confirm with them. Continue antibiotics. As needed pain control. 09/14 Patient evaluated and examined at bedside. He is going for surgery today. Continue antibiotics. No complaints prior to surgery. Will follow up with patient after surgery complete 09/15 Patient evaluated examined at bedside. Said he was doing well tolerating surgical pain without difficulty. Inquiring about discharge. Reviewed path results from surgery and results showing osteomyelitis. Suspect patient will need several weeks IV antibiotics. Will consult to infectious disease. Plan of care discussed with bedside RN Vitals/I&O Vitals/I&O: Vital Signs Date Time Temp Pulse Resp B/P (MAP) Pulse Ox O2 Delivery O2 Flow Rate FiO2 09/15/21 08:52 72 109/60 09/15/21 08:00 Room Air 09/15/21 07:00 98.0 18 98 98.0 09/15/21 05:57 6.0 I & O 09/14/21 09/14/21 09/15/21 15:00 23:00 07:00 Intake Total 900 ml 480 ml 500 ml Output Total 205 ml 450 ml 700 ml Balance 695 ml 30 ml -200 ml Physical Exam General: Alert, Oriented X3, Cooperative, No acute distress Heart: Regular rate Lungs: Clear Abdomen: Soft Extremities: Other (The left greater toe has severe infection please see the pictures) Skin: Other (left great toe redness, open wound) Labs Labs: Laboratory Tests Test 09/14/21 11:15 09/14/21 13:25 09/14/21 20:11 09/15/21 05:10 Glucose (Fingerstick) 172 mg/dL (70-99) 133 mg/dL (70-99) 108 mg/dL (70-99) White Blood Count 8.3 x10^3/uL (4.0-11.0) Red Blood Count 4.21 x10^6/uL (4.30-5.70) Hemoglobin 13.8 g/dL (13.0-17.5) Hematocrit 40.7 % (39.0-53.0) Mean Corpuscular Volume 97 fL (79-100) Mean Corpuscular Hemoglobin 33 pg (25-35) Mean Corpuscular Hemoglobin Concent 34 g/dL (31-37) Red Cell Distribution Width 12.0 % (11.5-14.5) Platelet Count 497 x10^3/uL (140-400) Neutrophils (%) (Auto) 69 % (31-73) Lymphocytes (%) (Auto) 17 % (24-48) Monocytes (%) (Auto) 12 % (0-9) Eosinophils (%) (Auto) 2 % (0-3) Basophils (%) (Auto) 1 % (0-3) Neutrophils # (Auto) 5.8 x10^3/uL (1.8-7.7) Lymphocytes # (Auto) 1.4 x10^3/uL (1.0-4.8) Monocytes # (Auto) 1.0 x10^3/uL (0.0-1.1) Eosinophils # (Auto) 0.1 x10^3/uL (0.0-0.7) Basophils # (Auto) 0.0 x10^3/uL (0.0-0.2) Sodium Level 137 mmol/L (136-145) Potassium Level 3.9 mmol/L (3.5-5.1) Chloride Level 104 mmol/L (98-107) Carbon Dioxide Level 26 mmol/L (21-32) Anion Gap 7 (6-14) Blood Urea Nitrogen 16 mg/dL (8-26) Creatinine 1.3 mg/dL (0.7-1.3) Estimated GFR (Cockcroft-Gault) 56.3 Glucose Level 148 mg/dL (70-99) Calcium Level 8.5 mg/dL (8.5-10.1) Test 09/15/21 07:26 Glucose (Fingerstick) 155 mg/dL (70-99) Comment Review of Relevant I have reviewed the following items edilberto (where applicable) has been applied. Medications: Current Medications Medications (Trade) Dose Ordered Sig/Jarret Route PRN Reason Start Time Stop Time Status Last Admin Dose Admin Fentanyl Citrate (Fentanyl 2ml Vial) 50 mcg PRN Q5MIN PRN IVP MODERATE PAIN 4-6 09/14/21 13:45 09/14/21 19:00 DC 09/14/21 13:40 Justifications for Admission Other Justification STEVE XIE MD Sep 15, 2021 11:02
--- NOTE | 2021-09-15 13:17 | NUR ---
SW following. Discussed with RN, pt from home with gf, room air, ada diet. ID consulted, awaiting cultures. Therapy recommending home. SW will continue to follow.
[2021-09-15] MEDS: VANCOMYCIN PER PHARMACY MC PRN (13:44)
--- NOTE | 2021-09-15 14:44 | NUR ---
Clayton is frustrated, He was told he would go home today and nobody has come and told him anything or dismissed him. explained earlier that i thought he would not go home related to a new consult for infectious disease for antibiotic recommendations. and Dr. Chacon would have to write his post op care. Dr. Chacon is in the OR at this time and has 2 more surgeries after. will have Dr. Varela page Addendum: 09/15/21 at 1535 by YASMIN UGALDE RN Feeling better after explanation and that Dr. Varela saw early this am. He hoping to get out tomorrow . I explained to ask to put his recommendations in that way Dr. Varela can go by ID recommendations for antibiotics.
[2021-09-15 15:00] VITALS: BP 117/62
[2021-09-15 19:40] VITALS: BP 117/67
--- NOTE | 2021-09-15 19:48 | PDOC ---
PROGRESS NOTES Date of Service DATE: 09/15/21 TIME: 19:47 Subjective Subjective Patient was seen resting comfortably in bed. Patient denies any pain to the surgical site. Patient has been working well with PT while remain nonweightbearing. Patient has been self administering insulin without any difficulty. He denies any constitutional symptoms. Objective Objective Vital Signs Date Time Temp Pulse Resp B/P (MAP) Pulse Ox O2 Delivery O2 Flow Rate FiO2 09/15/21 19:40 99.2 81 18 117/67 (84) 97 Room Air 99.2 09/15/21 05:57 6.0 Intake and Output 09/15/21 07:00 Intake Total 1880 ml Output Total 1355 ml Balance 525 ml Intake Oral 980 ml IV Total 900 ml Output Urine Total 1350 ml Estimated Blood Loss 5 ml # Bowel Movements 2 Physical Exam Physical Exam General: Pleasant without apparent distress, AOx3 Left lower extremity focused Dermatology: -Dressings kept clean dry and intact without any strikethrough -Splint is in place with ankle held in near 90 degrees Vascular: -Digits 2 through 5 are warm to touch with CFT less than 3 seconds x 5 Neurology: -Light touch sensation diminished to the level of digits 2 through 5 MSK: -[-] TTP at the surgical site -Able to move digits 2 through 5 -Muscle strength 5 out of 5 across ankle joint -Calf is soft and nontender Plan Plan of Care -Current antibiotic: Vancomycin and Zosyn -Deep tissue culture 09/09: Vagococcus after washout -intra-op path: + phalangeal osteo, but clean at inked proximal margin?? -intra-op was unremarkable for osteolytic osseous changes. Most recent I&D included partial 1st met head resection with a healthy, firm and bleeding osseous stump. there was no soft tissue necrotic changes or purulence tracking -Blood culture 09/08: Neg -remain aleukocytosis -Strict nonweightbearing to left lower extremity -PT eval and treat Dispo: -From My perspective, patient is safe to be discharged home -Intraoperative clinical findings were insignificant for residual osseous or soft tissue osteolytic changes. Patient has remained stable without leukocy tosis throughout postop. We need to find out if the osteolytic changes at the hallux were limited distal to the MTP joint. If so, patient is amenable to 2 weeks of oral antibiotics driven by culture. -Appreciate ID's input -Keep the dressing clean, dry and intact without dressing change at home -Remain nonweightbearing to the surgical foot and elevate with toes above the nose 45 minutes/h -Patient already has a follow-up appointment with me in 1 week Comment Review of Relevant I have reviewed the following items edilberto (where applicable) has been applied. Labs Laboratory Tests Test 09/13/21 20:34 09/14/21 03:30 09/14/21 08:22 09/14/21 11:15 Glucose (Fingerstick) 243 mg/dL (70-99) 187 mg/dL (70-99) 172 mg/dL (70-99) White Blood Count 7.5 x10^3/uL (4.0-11.0) Red Blood Count 4.18 x10^6/uL (4.30-5.70) Hemoglobin 14.2 g/dL (13.0-17.5) Hematocrit 40.5 % (39.0-53.0) Mean Corpuscular Volume 97 fL (79-100) Mean Corpuscular Hemoglobin 34 pg (25-35) Mean Corpuscular Hemoglobin Concent 35 g/dL (31-37) Red Cell Distribution Width 11.9 % (11.5-14.5) Platelet Count 517 x10^3/uL (140-400) Neutrophils (%) (Auto) 64 % (31-73) Lymphocytes (%) (Auto) 22 % (24-48) Monocytes (%) (Auto) 10 % (0-9) Eosinophils (%) (Auto) 3 % (0-3) Basophils (%) (Auto) 1 % (0-3) Neutrophils # (Auto) 4.8 x10^3/uL (1.8-7.7) Lymphocytes # (Auto) 1.7 x10^3/uL (1.0-4.8) Monocytes # (Auto) 0.7 x10^3/uL (0.0-1.1) Eosinophils # (Auto) 0.2 x10^3/uL (0.0-0.7) Basophils # (Auto) 0.1 x10^3/uL (0.0-0.2) Sodium Level 139 mmol/L (136-145) Potassium Level 4.1 mmol/L (3.5-5.1) Chloride Level 106 mmol/L (98-107) Carbon Dioxide Level 23 mmol/L (21-32) Anion Gap 10 (6-14) Blood Urea Nitrogen 18 mg/dL (8-26) Creatinine 1.1 mg/dL (0.7-1.3) Estimated GFR (Cockcroft-Gault) 68.3 Glucose Level 160 mg/dL (70-99) Calcium Level 9.0 mg/dL (8.5-10.1) Test 09/14/21 13:25 09/14/21 20:11 09/15/21 05:10 09/15/21 07:26 Glucose (Fingerstick) 133 mg/dL (70-99) 108 mg/dL (70-99) 155 mg/dL (70-99) White Blood Count 8.3 x10^3/uL (4.0-11.0) Red Blood Count 4.21 x10^6/uL (4.30-5.70) Hemoglobin 13.8 g/dL (13.0-17.5) Hematocrit 40.7 % (39.0-53.0) Mean Corpuscular Volume 97 fL (79-100) Mean Corpuscular Hemoglobin 33 pg (25-35) Mean Corpuscular Hemoglobin Concent 34 g/dL (31-37) Red Cell Distribution Width 12.0 % (11.5-14.5) Platelet Count 497 x10^3/uL (140-400) Neutrophils (%) (Auto) 69 % (31-73) Lymphocytes (%) (Auto) 17 % (24-48) Monocytes (%) (Auto) 12 % (0-9) Eosinophils (%) (Auto) 2 % (0-3) Basophils (%) (Auto) 1 % (0-3) Neutrophils # (Auto) 5.8 x10^3/uL (1.8-7.7) Lymphocytes # (Auto) 1.4 x10^3/uL (1.0-4.8) Monocytes # (Auto) 1.0 x10^3/uL (0.0-1.1) Eosinophils # (Auto) 0.1 x10^3/uL (0.0-0.7) Basophils # (Auto) 0.0 x10^3/uL (0.0-0.2) Sodium Level 137 mmol/L (136-145) Potassium Level 3.9 mmol/L (3.5-5.1) Chloride Level 104 mmol/L (98-107) Carbon Dioxide Level 26 mmol/L (21-32) Anion Gap 7 (6-14) Blood Urea Nitrogen 16 mg/dL (8-26) Creatinine 1.3 mg/dL (0.7-1.3) Estimated GFR (Cockcroft-Gault) 56.3 Glucose Level 148 mg/dL (70-99) Calcium Level 8.5 mg/dL (8.5-10.1) Test 09/15/21 12:02 09/15/21 17:16 Glucose (Fingerstick) 123 mg/dL (70-99) 110 mg/dL (70-99) Laboratory Tests Test 09/14/21 20:11 09/15/21 05:10 09/15/21 07:26 09/15/21 12:02 Glucose (Fingerstick) 108 mg/dL (70-99) 155 mg/dL (70-99) 123 mg/dL (70-99) White Blood Count 8.3 x10^3/uL (4.0-11.0) Red Blood Count 4.21 x10^6/uL (4.30-5.70) Hemoglobin 13.8 g/dL (13.0-17.5) Hematocrit 40.7 % (39.0-53.0) Mean Corpuscular Volume 97 fL (79-100) Mean Corpuscular Hemoglobin 33 pg (25-35) Mean Corpuscular Hemoglobin Concent 34 g/dL (31-37) Red Cell Distribution Width 12.0 % (11.5-14.5) Platelet Count 497 x10^3/uL (140-400) Neutrophils (%) (Auto) 69 % (31-73) Lymphocytes (%) (Auto) 17 % (24-48) Monocytes (%) (Auto) 12 % (0-9) Eosinophils (%) (Auto) 2 % (0-3) Basophils (%) (Auto) 1 % (0-3) Neutrophils # (Auto) 5.8 x10^3/uL (1.8-7.7) Lymphocytes # (Auto) 1.4 x10^3/uL (1.0-4.8) Monocytes # (Auto) 1.0 x10^3/uL (0.0-1.1) Eosinophils # (Auto) 0.1 x10^3/uL (0.0-0.7) Basophils # (Auto) 0.0 x10^3/uL (0.0-0.2) Sodium Level 137 mmol/L (136-145) Potassium Level 3.9 mmol/L (3.5-5.1) Chloride Level 104 mmol/L (98-107) Carbon Dioxide Level 26 mmol/L (21-32) Anion Gap 7 (6-14) Blood Urea Nitrogen 16 mg/dL (8-26) Creatinine 1.3 mg/dL (0.7-1.3) Estimated GFR (Cockcroft-Gault) 56.3 Glucose Level 148 mg/dL (70-99) Calcium Level 8.5 mg/dL (8.5-10.1) Test 09/15/21 17:16 Glucose (Fingerstick) 110 mg/dL (70-99) Microbiology 09/09/21 Gram Stain - Final, Complete 09/09/21 Aerobic and Anaerobic Culture - Final, Complete 09/08/21 Blood Culture - Final, Complete NO GROWTH AFTER 5 DAYS Medications Current Medications Vancomycin HCl (Vanco Per Pharmacy) 1 each PRN DAILY PRN MC SEE COMMENTS Last administered on 09/15/21at 13:44; Start 09/08/21 at 12:30 Piperacillin Sod/ Tazobactam Sod (Zosyn Per Pharmacy) 1 each PRN DAILY PRN MC SEE COMMENTS; Start 09/08/21 at 12:30 Acetaminophen (Tylenol) 650 mg PRN Q6HRS PRN PO MILD PAIN / TEMP > 100.3'F; Start 09/08/21 at 12:30; Stop 09/09/21 at 18:00; Status DC Vancomycin HCl 2 gm/Sodium Chloride 500 ml @ 250 mls/hr 1X ONCE IV Last administered on 09/08/21at 15:04; Start 09/08/21 at 12:45; Stop 09/08/21 at 14:49; Status DC Piperacillin Sod/ Tazobactam Sod 3.375 gm/Sodium Chloride 50 ml @ 100 mls/hr 1X ONCE IV ; Start 09/08/21 at 13:15; Stop 09/08/21 at 13:44; Status Cancel Influenza Virus Vaccine Quadrival (Flulaval Quad [id number] Syringe) 0.5 ml ONCE ONCE VAX IM Last administered on 09/08/21at 16:30; Start 09/08/21 at 13:15; Stop 09/08/21 at 13:18; Status DC Piperacillin Sod/ Tazobactam Sod 3.375 gm/Sodium Chloride 50 ml @ 100 mls/hr Q6HRS IV Last administered on 09/15/21at 17:47; Start 09/08/21 at 18:00 Lisinopril (Prinivil) 10 mg DAILY PO Last administered on 09/15/21at 14:34; Start 09/09/21 at 09:00 Citalopram Hydrobromide (CeleXA) 40 mg DAILY PO Last administered on 09/15/21at 08:47; Start 09/09/21 at 09:00 Cyanocobalamin (Vitamin B-12) 2,500 mcg DAILY PO Last administered on 09/15/21at 08:46; Start 09/09/21 at 09:00 Glipizide (Glucotrol) 10 mg BIDBFRMEAL PO Last administered on 09/12/21at 08: 20; Start 09/08/21 at 16:30; Stop 09/12/21 at 08:46; Status DC Atorvastatin Calcium (Lipitor) 80 mg QHS PO Last administered on 09/14/21at 21:00; Start 09/08/21 at 21:00 Insulin Glargine (Lantus Syringe) 10 unit QHS SQ Last administered on 09/11/21at 23:12; Start 09/08/21 at 21:00; Stop 09/12/21 at 08:46; Status DC Insulin Human Lispro (HumaLOG) 8 units TIDAC SQ Last administered on 09/15/21at 17:52; Start 09/08/21 at 16:30 Insulin Human Lispro (HumaLOG) 0-7 UNITS TIDWMEALS SQ Last administered on 09/15/21at 08:59; Start 09/08/21 at 17:00 Dextrose (Dextrose 50%-Water Syringe) 12.5 gm PRN Q15MIN PRN IV SEE COMMENTS; Start 09/08/21 at 14:45 Docusate Sodium (Colace) 100 mg DAILY PO Last administered on 09/15/21at 08:47; Start 09/09/21 at 09:00 Zolpidem Tartrate (Ambien) 5 mg PRN QHS PRN PO INSOMNIA Last administered on 09/13/21at 22:16; Start 09/08/21 at 14:45 Vancomycin HCl 1.5 gm/Sodium Chloride 500 ml @ 250 mls/hr Q12H IV Last administered on 09/15/21at 15:09; Start 09/09/21 at 03:00 Vancomycin HCl (Vancomycin Trough Level) 1 each 1X ONCE MC Last administered on 09/10/21at 02:30; Start 09/10/21 at 02:30; Stop 09/10/21 at 02:31; Status DC Bupivacaine HCl (Sensorcaine Mpf 0.25%) 30 ml STK-MED ONCE .ROUTE Last administered on 09/09/21at 17:22; Start 09/09/21 at 14:00; Stop 09/09/21 at 14:00; Status DC Vancomycin HCl (Vancomycin) 1 gm STK-MED ONCE .ROUTE ; Start 09/09/21 at 14:00; Stop 09/09/21 at 14:00; Status DC Propofol (Diprivan) 200 mg STK-MED ONCE IV ; Start 09/09/21 at 14:18; Stop 09/09/21 at 14:19; Status DC Lidocaine HCl (Lidocaine Pf 2% Vial) 5 ml STK-MED ONCE .ROUTE ; Start 09/09/21 at 14:18; Stop 09/09/21 at 14:19; Status DC Dexamethasone Sodium Phosphate (Decadron) 4 mg STK-MED ONCE .ROUTE ; Start 09/09/21 at 14:18; Stop 09/09/21 at 14:19; Status DC Ondansetron HCl (Zofran) 4 mg STK-MED ONCE .ROUTE ; Start 09/09/21 at 14:18; Stop 09/09/21 at 14:19; Status DC Insulin Human Lispro (HumaLOG VIAL for OP,RR ONLY) 0-10 units PRN Q1HR PRN SQ PER PROTOCOL Last administered on 09/09/21at 17:09; Start 09/09/21 at 16:00; Stop 09/10/21 at 15:59; Status DC Fentanyl Citrate (Fentanyl 2ml Vial) 100 mcg STK-MED ONCE .ROUTE ; Start 09/09/21 at 16:09; Stop 09/09/21 at 16:09; Status DC Sevoflurane (Ultane) 30 ml STK-MED ONCE IH ; Start 09/09/21 at 16:27; Stop 09/09/21 at 16:28; Status DC Fentanyl Citrate (Fentanyl 2ml Vial) 25 mcg PRN Q5MIN PRN IVP MILD PAIN 1-3; Start 09/09/21 at 17:00; Stop 09/10/21 at 16:59; Status DC Fentanyl Citrate (Fentanyl 2ml Vial) 50 mcg PRN Q5MIN PRN IVP MODERATE PAIN 4- 6; Start 09/09/21 at 17:00; Stop 09/10/21 at 16:59; Status DC Morphine Sulfate (Morphine Sulfate) 1 mg PRN Q10MIN PRN IVP SEVERE PAIN 7-10; Start 09/09/21 at 17:00; Stop 09/10/21 at 16:59; Status DC Ringer's Solution 1,000 ml @ 30 mls/hr Q24H IV Last administered on 09/09/21at 16:00; Start 09/09/21 at 17:00; Stop 09/10/21 at 04:59; Status DC Hydromorphone HCl (Dilaudid) 0.5 mg PRN Q10MIN PRN IVP SEVERE PAIN 7-10, 2nd CHOICE; Start 09/09/21 at 17:00; Stop 09/10/21 at 16:59; Status DC Prochlorperazine Edisylate (Compazine) 5 mg PACU PRN PRN IVP NAUSEA, MRX1; Start 09/09/21 at 17:00; Stop 09/10/21 at 16:59; Status DC Acetaminophen (Tylenol) 650 mg Q6HRS PO Last administered on 09/15/21at 12:29; Start 09/09/21 at 18:00 Tramadol HCl (Ultram) 50 mg PRN Q6HRS PRN PO MILD-MODERATE PAIN Last administered on 09/15/21at 05:57; Start 09/09/21 at 18:00 Acetaminophen/ Hydrocodone Bitart (Lortab 5/325) 1 tab PRN Q6HRS PRN PO SEVERE PAIN Last administered on 09/15/21at 05:57; Start 09/09/21 at 18:00 Gabapentin (Neurontin) 100 mg TID PO Last administered on 09/15/21at 14:35; Start 09/09/21 at 21:00 Lactobacillus Rhamnosus (Culturelle) 1 cap BID PO Last administered on 09/15/21at 08:47; Start 09/10/21 at 21:00 Lactobacillus Rhamnosus (Culturelle) 1 cap BID PO ; Start 09/10/21 at 21:00; Status UNV Insulin Glargine (Lantus Syringe) 14 unit DAILY SQ Last administered on 09/15/21at 09:24; Start 09/12/21 at 09:00 Fentanyl Citrate (Fentanyl 2ml Vial) 25 mcg PRN Q5MIN PRN IVP MILD PAIN 1-3; Start 09/14/21 at 06:00; Stop 09/14/21 at 13:08; Status DC Fentanyl Citrate (Fentanyl 2ml Vial) 50 mcg PRN Q5MIN PRN IVP MODERATE PAIN 4- 6; Start 09/14/21 at 06:00; Stop 09/14/21 at 13:08; Status DC Morphine Sulfate (Morphine Sulfate) 1 mg PRN Q10MIN PRN IVP SEVERE PAIN 7-10; Start 09/14/21 at 06:00; Stop 09/14/21 at 13:08; Status DC Ringer's Solution 1,000 ml @ 30 mls/hr Q24H IV Last administered on 09/14/21at 11:14; Start 09/14/21 at 06:00; Stop 09/14/21 at 17:59; Status DC Hydromorphone HCl (Dilaudid) 0.5 mg PRN Q10MIN PRN IVP SEVERE PAIN 7-10, 2nd CHOICE; Start 09/14/21 at 06:00; Stop 09/14/21 at 13:39; Status DC Prochlorperazine Edisylate (Compazine) 5 mg PACU PRN PRN IVP NAUSEA, MRX1; Start 09/14/21 at 06:00; Stop 09/14/21 at 19:00; Status DC Bupivacaine HCl (Sensorcaine Mpf 0.25%) 30 ml STK-MED ONCE .ROUTE ; Start 09/14/21 at 10:26; Stop 09/14/21 at 10:27; Status DC Vancomycin HCl (Vancomycin) 1 gm STK-MED ONCE .ROUTE ; Start 09/14/21 at 10:27; Stop 09/14/21 at 10:27; Status DC Propofol (Diprivan) 200 mg STK-MED ONCE IV ; Start 09/14/21 at 11:21; Stop 09/14/21 at 11:21; Status DC Lidocaine HCl (Lidocaine Pf 2% Vial) 5 ml STK-MED ONCE .ROUTE ; Start 09/14/21 at 11:21; Stop 09/14/21 at 11:21; Status DC Ondansetron HCl (Zofran) 4 mg STK-MED ONCE .ROUTE ; Start 09/14/21 at 11:21; Stop 09/14/21 at 11:21; Status DC Fentanyl Citrate (Fentanyl 2ml Vial) 100 mcg STK-MED ONCE .ROUTE ; Start 09/14/21 at 11:24; Stop 09/14/21 at 11:24; Status DC Midazolam HCl (Versed) 2 mg STK-MED ONCE .ROUTE ; Start 09/14/21 at 11:24; Stop 09/14/21 at 11:25; Status DC Fentanyl Citrate (Fentanyl 2ml Vial) 100 mcg STK-MED ONCE .ROUTE ; Start 09/14/21 at 13:33; Stop 09/14/21 at 13:33; Status DC Fentanyl Citrate (Fentanyl 2ml Vial) 25 mcg PRN Q5MIN PRN IVP MILD PAIN 1-3; Start 09/14/21 at 13:45; Stop 09/14/21 at 19:00; Status DC Fentanyl Citrate (Fentanyl 2ml Vial) 50 mcg PRN Q5MIN PRN IVP MODERATE PAIN 4-6 Last administered on 09/14/21at 13:40; Start 09/14/21 at 13:45; Stop 09/14/21 at 19:00; Status DC Morphine Sulfate (Morphine Sulfate) 1 mg PRN Q10MIN PRN IVP SEVERE PAIN 7-10; Start 09/14/21 at 13:45; Stop 09/14/21 at 19:00; Status DC Hydromorphone HCl (Dilaudid) 0.5 mg PRN Q10MIN PRN IVP SEVERE PAIN 7-10, 2nd CHOICE; Start 09/14/21 at 13:45; Stop 09/14/21 at 19:00; Status DC Vancomycin HCl (Vancomycin Trough Level) 1 each 1X ONCE MC ; Start 09/16/21 at 14:30; Stop 09/16/21 at 14:31 Active Scripts Active Reported Vitamin B12 (Cyanocobalamin (Vitamin B-12)) 2,500 Mcg Tablet 1 Tab PO DAILY 30 Days Lisinopril 10 Mg Tablet 1 Tab PO DAILY Crestor (Rosuvastatin Calcium) 40 Mg Tablet 0.5 Tab PO DAILY Citalopram Hbr (Citalopram Hydrobromide) 40 Mg Tablet 1 Tab PO DAILY Glipizide 10 Mg Tablet 1 Tab PO BID Metformin Hcl 1,000 Mg Tablet 1,000 Mg PO BIDWMEALS Vitals/I & O Vital Sign - Last 24 Hours 09/14/21 09/14/21 09/14/21 09/14/21 19:48 20:10 21:30 21:30 Temp 98.7 98.7 Pulse 73 Resp 20 B/P (MAP) 137/71 (93) Pulse Ox 99 95 95 O2 Delivery Room Air Room Air Room Air Room Air 09/14/21 09/14/21 09/14/21 09/15/21 22:00 22:00 23:23 03:13 Temp 98.4 98.3 98.4 98.3 Pulse 77 72 Resp 18 18 B/P (MAP) 123/70 (87) 103/60 (74) Pulse Ox 95 95 95 97 O2 Delivery Room Air Room Air Room Air Room Air 09/15/21 09/15/21 09/15/21 09/15/21 05:57 05:57 06:27 06:27 Pulse Ox 97 97 97 97 O2 Delivery Room Air Room Air Room Air Room Air O2 Flow Rate 6.0 09/15/21 09/15/21 09/15/21 09/15/21 07:00 08:00 08:52 11:00 Temp 98.0 98.6 98.0 98.6 Pulse 72 72 85 Resp 18 18 B/P (MAP) 109/60 (76) 109/60 120/71 (87) Pulse Ox 98 95 O2 Delivery Room Air 09/15/21 09/15/21 09/15/21 14:34 15:00 19:40 Temp 98.1 99.2 98.1 99.2 Pulse 85 79 81 Resp 18 18 B/P (MAP) 120/71 117/62 (80) 117/67 (84) Pulse Ox 98 97 O2 Delivery Room Air Intake and Output 09/14/21 09/14/21 09/15/21 15:00 23:00 07:00 Intake Total 900 ml 480 ml 500 ml Output Total 205 ml 450 ml 700 ml Balance 695 ml 30 ml -200 ml Justifications for Admission Other Justification ASHLEY LEDEZMA DPMarisel Sep 15, 2021 19:48
[2021-09-15] MEDS: ATORVASTATIN CALCIUM 40 MG TABLET. PO SCH (21:25)
[2021-09-15 23:04] VITALS: BP 110/65
[2021-09-16] MEDS: PIPERACILLIN/TAZOBACTAM 3.375 GM in IV NORMAL SALINE 50ML 50 ML IV SCH ×2 (00:30→05:39)
[2021-09-16 02:59] LABS: BASO % 1 % (0-3); EOS # 0.2 x10^3/uL (0.0-0.7); EOS % 3 % (0-3); HEMATOCRIT 40.6 % (39.0-53.0); HEMOGLOBIN 13.9 g/dL (13.0-17.5); LYMPH # 1.7 x10^3/uL (1.0-4.8); LYMPH % 21 % (24-48); MEAN CORPUSCULAR HEMOGLOBIN 33 pg (25-35); MEAN CORPUSCULAR HGB CONC 34 g/dL (31-37); MEAN CORPUSCULAR VOLUME 97 fL (79-100); MONO # 1.1 x10^3/uL (0.0-1.1); MONO % 14 % (0-9); NEUT % 62 % (31-73); PLATELET COUNT 488 x10^3/uL (140-400); RED BLOOD COUNT 4.18 x10^6/uL (4.30-5.70); RED CELL DISTRIBUTION WIDTH 12.3 % (11.5-14.5)
[2021-09-16] MEDS: VANCOMYCIN 1.5 GM in IV NORMAL SALINE 500ML BAG 500 ML IV SCH (03:00)
[2021-09-16 03:06] VITALS: BP 103/60
[2021-09-16 03:16] LABS: CALCIUM 8.9 mg/dL (8.5-10.1); CREATININE 1.2 mg/dL (0.7-1.3); GFR 61.8; POTASSIUM 4.3 mmol/L (3.5-5.1)
[2021-09-16] MEDS: ACETAMINOPHEN 325 MG TABLET. PO SCH ×2 (05:38)
[2021-09-16 07:00] VITALS: BP 107/67
--- NOTE | 2021-09-16 08:00 | NUR ---
Clayton is very frustrated this am. they promised me I could go home this am at [phone]. explained that i need to get an order for him to go home antibiotics etc. call the doctors -I am going stir crazy. eventually he calmed down. am meds given. Dr. Jones here will recommend an oral antibiotic. Dr. Avery blanc. Addendum: 09/16/21 at 1019 by YASMIN UGALDE RN reviewed orally his discharge instructions with him regarding Dr. Chacon's orders; verbalized understanding of these.
[2021-09-16] MEDS: LACTOBACILLUS RHAMNOSUS GG 1 CAPSULE. PO SCH (08:28)
[2021-09-16] MEDS: CITALOPRAM 20 MG TABLET. PO SCH (08:28)
[2021-09-16] MEDS: GABAPENTIN 100 MG CAPSULE. PO SCH (08:28)
[2021-09-16] MEDS: DOCUSATE SODIUM 100 MG CAPSULE. PO SCH (08:28)
[2021-09-16] MEDS: INSULIN LISPRO 300 UNITS/3 ML VIAL. SQ SCH ×2 (08:33→08:34)
--- NOTE | 2021-09-16 08:49 | PDOC ---
Infectious Disease Note Vital Sign Vital Signs Vital Signs Date Time Temp Pulse Resp B/P (MAP) Pulse Ox O2 Delivery O2 Flow Rate FiO2 09/16/21 03:06 97.6 65 20 103/60 (74) 96 Room Air 97.6 Labs Lab Laboratory Tests Test 09/15/21 12:02 09/15/21 17:16 09/16/21 02:30 09/16/21 08:05 Glucose (Fingerstick) 123 mg/dL (70-99) 110 mg/dL (70-99) 152 mg/dL (70-99) White Blood Count 8.0 x10^3/uL (4.0-11.0) Red Blood Count 4.18 x10^6/uL (4.30-5.70) Hemoglobin 13.9 g/dL (13.0-17.5) Hematocrit 40.6 % (39.0-53.0) Mean Corpuscular Volume 97 fL (79-100) Mean Corpuscular Hemoglobin 33 pg (25-35) Mean Corpuscular Hemoglobin Concent 34 g/dL (31-37) Red Cell Distribution Width 12.3 % (11.5-14.5) Platelet Count 488 x10^3/uL (140-400) Neutrophils (%) (Auto) 62 % (31-73) Lymphocytes (%) (Auto) 21 % (24-48) Monocytes (%) (Auto) 14 % (0-9) Eosinophils (%) (Auto) 3 % (0-3) Basophils (%) (Auto) 1 % (0-3) Neutrophils # (Auto) 5.0 x10^3/uL (1.8-7.7) Lymphocytes # (Auto) 1.7 x10^3/uL (1.0-4.8) Monocytes # (Auto) 1.1 x10^3/uL (0.0-1.1) Eosinophils # (Auto) 0.2 x10^3/uL (0.0-0.7) Basophils # (Auto) 0.0 x10^3/uL (0.0-0.2) Sodium Level 139 mmol/L (136-145) Potassium Level 4.3 mmol/L (3.5-5.1) Chloride Level 104 mmol/L (98-107) Carbon Dioxide Level 26 mmol/L (21-32) Anion Gap 9 (6-14) Blood Urea Nitrogen 18 mg/dL (8-26) Creatinine 1.2 mg/dL (0.7-1.3) Estimated GFR (Cockcroft-Gault) 61.8 Glucose Level 141 mg/dL (70-99) Calcium Level 8.9 mg/dL (8.5-10.1) Micro Microbiology 09/09/21 Gram Stain - Final, Complete 09/09/21 Aerobic and Anaerobic Culture - Final, Complete 09/08/21 Blood Culture - Final, Complete NO GROWTH AFTER 5 DAYS Objective Assessment pt seen, consult dictated Plan Plan of Care d/c ok on po augmentin ( pt has taken amox without problem ) MICHAELLE LYN MD Sep 16, 2021 08:49
[2021-09-16] MEDS ORDERED: AMOXICILLIN/K CLAV 875/125MG TABLET. PO SCH (09:00)
[2021-09-16] MEDS ORDERED: HYDR-2761 PO (09:16)
[2021-09-16] MEDS ORDERED: AMOX1TAB11 PO (09:16)
--- NOTE | 2021-09-16 09:32 | CONS ---
DATE OF CONSULTATION: 09/16/2021 REQUESTING PHYSICIAN: Dr. Varela. REASON FOR CONSULTATION: Antibiotic management. HISTORY OF PRESENT ILLNESS: This is a 60-year-old gentleman with history of diabetes, who was admitted with a toe infection. The patient had been sort of doctoring himself for several weeks and he ended up having a 2-stage resection with us on the . The last one was partial first ray amputation with incision and drainage and wound closure. The patient is ready to go home. The patient has been receiving vancomycin and Zosyn. The patient denies any nausea, vomiting, diarrhea, chest pain, shortness of breath, abdominal pain. His foot is in the soft cast, but the redness on the foot is gone, he says, completely when they put it on. His cultures have shown Streptococcus anginosus, Prevotella, Vagococcus, Parvimonas, Peptoniphilus. Foot x-ray reviewed. REVIEW OF SYSTEMS: As in HPI. All other systems reviewed are negative. PHYSICAL EXAMINATION: GENERAL: Alert, oriented gentleman, not in distress. VITAL SIGNS: Stable, afebrile. HEENT: NAD. NECK: Supple. LUNGS: Clear. HEART: S1, S2, regular. ABDOMEN: Soft, nontender, no organomegaly. EXTREMITIES: No edema or cyanosis. Left foot is in a soft cast/special dressing, was not open. NEUROLOGIC: The patient is alert, awake, and appropriate. No focal neurologic deficit. LABORATORY DATA: White count is normal. BUN and creatinine are normal. Hemoglobin A1c is 8.7. Blood cultures negative. IMPRESSION: 1. Left hallux infection, status post closed amputation. 2. Foot cellulitis, which has improved. 3. Diabetes mellitus. RECOMMENDATIONS: Antibiotics can be switched over to p.o. Augmentin. The patient has listed ALLERGIC TO PENICILLIN, but he admits to have taken amoxicillin without any problem. We will have him go on Augmentin. Thank you very much, Dr. Varela, for giving me the opportunity to participate in this patient's care. BRIANA PHILLIPS: PRAVIN/cayla TID: [id number]
[2021-09-16] MEDS: CYANOCOBALAMIN (VITAMIN B-12) 1,000 MCG TABLET. PO SCH (09:58)
[2021-09-16] MEDS: INSULIN GLARGINE SYRINGE. SQ SCH (09:58)
--- NOTE | 2021-09-16 10:00 | NUR ---
reviewed discharge instructions with patient and friend written discharge orders regarding his oral antibiotic, pain medication, follow up and restrictions to activities of daily living such as bathing driving. emphasized he is non weight bearing on his left foot and it needs to be elevated 45 out every 60 min. both verbalized understanidng of these instructions.
--- NOTE | 2021-09-16 10:12 | PDOC3 ---
[facility]-Discharge Summary Date of Admission: Date of Admission: Sep 08, 2021 Date of Discharge: Date of Discharge: Sep 16, 2021 Admission Diagnosis: Problems: (1) Diabetic foot ulcer Discharge Diagnosis: Discharge Diagnosis: Same Consults: Consults: Podiatry, ID Hospital Course: Hospital Course: Chief Complaint Severe right great toe diabetic infection Diabetes Severe neuropathy Depression Hypertension Hyperlipidemia Insomnia Plan: Continue IV antibiotics Follow recommendations from physical therapy Consult infectious disease as patient's pathology does show osteomyelitis Further recommendations based on the clinical course History of Present Illness History of Present Illness 09/09/2021 Patient seen and examined He is scheduled to go to surgery later today (the left greater toe has severe swelling and obvious diabetic foot infection) Discussed with RN Discussed with case management Chart reviewed 09/10/2021 No acute events reported overnight, case discussed with nursing staff patient in no acute distress complaining of diarrhea. Reassurance has been provided. Wound VAC hopefully will be placed either today or tomorrow discussed results of hemoglobin A1c 09/11/2021 Continues to do well. He is now more open to continue with his insulin regimen in order to control his diabetes. Plans for OR early next week were discussed. Reassurance provided no concerns voiced during my encounter no acute events reported overnight 09/12/2021 No acute events reported overnight, case discussed with nursing staff patient in no acute distress no complaints during my visit 09/13 Patient evaluated and examined at bedside. No major complaints was interested in plan of care. From what I can tell most recent podiatry note showing surgical intervention for tomorrow. We will plan on this for now and confirm with them. Continue antibiotics. As needed pain control. 09/14 Patient evaluated and examined at bedside. He is going for surgery today. Continue antibiotics. No complaints prior to surgery. Will follow up with patient after surgery complete 09/15 Patient evaluated examined at bedside. Said he was doing well tolerating surgical pain without difficulty. Inquiring about discharge. Reviewed path results from surgery and results showing osteomyelitis. Will consult to infectious disease. Plan of care discussed with bedside RN 09/16 Patient evaluated examined at bedside. He is very eager for discharge. ID evaluated okay to discharge on Augmentin. Follow-ups with podiatry scheduled. Okay for discharge from my perspective. I spent greater than 30 minutes on this discharge 18 minutes advanced care planning discussed with the patient Disposition: Disposition/Orders: D/C to Home Activity: Activity: Resume previous activity Diet: Diet: Regular Medications: Home Meds Active Scripts Hydrocodone Bit/Acetaminophen (HYDROCODONE-APAP 5-325 ) 1 Tab Tablet, 1 TAB PO PRN Q6HRS PRN for SEVERE PAIN for 5 Days, #20 TAB Prov:STEVE XIE MD 09/16/21 Amoxicillin/Potassium Clav (AMOX TR-K CLV 875-125 MG TAB) 1 Each Tablet, 1 TAB PO BID for infection for 14 Days, #28 TAB Prov:STEVE XIE MD 09/16/21 Reported Medications Cyanocobalamin (Vitamin B-12) (Vitamin B12) 2,500 Mcg Tablet, 1 TAB PO DAILY for supplement for 30 Days, #30 TAB 0 Refills 09/08/21 Lisinopril (LISINOPRIL) 10 Mg Tablet, 1 TAB PO DAILY for HTN, #30 TAB 5 Refills 09/08/21 Rosuvastatin Calcium (CRESTOR) 40 Mg Tablet, 0.5 TAB PO DAILY for HLD, #30 TAB 5 Refills 09/08/21 Citalopram Hydrobromide (CITALOPRAM HBR) 40 Mg Tablet, 1 TAB PO DAILY for anxiety/depression, #90 TAB 1 Refill 09/08/21 Glipizide (GLIPIZIDE) 10 Mg Tablet, 1 TAB PO BID for DM, #60 TAB 5 Refills 09/08/21 Metformin Hcl (METFORMIN HCL) 1,000 Mg Tablet, 1000 MG PO BIDWMEALS for DM, TAB 09/08/21 Scheduled Amoxicillin/Potassium Clav (Amox Tr-K Clv 875-125 Mg Tab), 1 TAB PO BID Citalopram Hydrobromide (Citalopram Hbr), 1 TAB PO DAILY, (Reported) Cyanocobalamin (Vitamin B-12) (Vitamin B12), 1 TAB PO DAILY, (Reported) Glipizide (Glipizide), 1 TAB PO BID, (Reported) Lisinopril (Lisinopril), 1 TAB PO DAILY, (Reported) Metformin Hcl (Metformin Hcl), 1,000 MG PO BIDWMEALS, (Reported) Rosuvastatin Calcium (Crestor), 0.5 TAB PO DAILY, (Reported) Scheduled PRN Hydrocodone Bit/Acetaminophen (Hydrocodone-Apap 5-325 ), 1 TAB PO PRN Q6HRS PRN for SEVERE PAIN Justicifation of Admission Dx: Justifications for Admission: Justification of Admission Dx: Yes Sepsis: Failure of Out Pt Tx STEVE XIE MD Sep 16, 2021 10:12
--- NOTE | 2021-09-16 10:22 | NUR ---
dismissed to home. refused 1st oral antibiotic. already at his pharmacy. will be [employer] and take one. saline lock removed
--- NOTE | 2021-09-16 10:53 | NUR ---
SW following. Discussed with RN, discharge order for home with self care. RN advised no SW needs.
== END 2021-09-16 10:15 | disposition home or self-care (01) | DRG 617 ==
LOC: 5 NORTH 11:19
PROVIDERS: ADMIT Internal Medicine; ATTEND Internal Medicine
PROC: 0Y6Q0Z0 Detachment at Left 1st Toe, Complete, Open Approach (ICD-10-PCS; 2021-09-09)
PROC: 0QBP0Z2 Excision of Left Metatarsal, Sesamoid Bone(s) 1st Toe, Open Approach (ICD-10-PCS; principal; 2021-09-14 11:45)
DX: E11.69 Type 2 diabetes mellitus with other specified complication (principal); M86.8X7 Other osteomyelitis, ankle and foot; L03.032 Cellulitis of left toe; E11.621 Type 2 diabetes mellitus with foot ulcer; E66.9 Obesity, unspecified; E78.5 Hyperlipidemia, unspecified; F32.A Depression, unspecified; G47.00 Insomnia, unspecified; I10 Essential (primary) hypertension; Z68.31 Body mass index [BMI] 31.0-31.9, adult; L97.509 Non-pressure chronic ulcer of other part of unspecified foot with unspecified severity; E11.40 Type 2 diabetes mellitus with diabetic neuropathy, unspecified; Z79.4 Long term (current) use of insulin; E11.42 Type 2 diabetes mellitus with diabetic polyneuropathy; Z88.0 Allergy status to penicillin; Z79.899 Other long term (current) drug therapy
CPT/HCPCS: 36415; 73630; 80048; 80202; 82962; 83036; 85025; 87040; 87071; 87075; 87076; 87077; 87493; 88305; 88311; 90471; 90686; A4657; A4930; A6223; A6253; A6402; A6449; A6450; J1100; J1815; J2250; J2405; J2543; J2704; J3010; J3370; J3490; J7040; J7120; 97110-GP; 97116-GP; 97530-GP; G0378